=== PATIENT | male | born 1965 | race Caucasian/White ===

== ENCOUNTER 2018-08-29 14:59 | Emergency (ER) | payer OTHER ==
--- OUTSIDE RECORDS SUMMARY | 2018-08-29 15:02 | XMS REPORT | Clinical Summary ---
:1965 Author Organization [facility] Address [address] [place] [address] Care Team Providers Name Role Phone Wilner Chery MD Primary Care Provider Allergies Active Allergy Reactions Severity Noted Date Comments No Known Drug Allergies 01/24/2016 Current Medications Prescription Sig. Disp. Refills Start Date End Date Status pantoprazole Take 1 tablet Active (PROTONIX) 40 MG EC by mouth tablet daily. PARoxetine (PAXIL) 30 Take 30 mg by 2 09/09/2017 Active MG tablet mouth nightly. VIMPAT 150 mg tablet TAKE 1/2 90 tablet 1 04/21/2018 Active TABLET TWICE 8 A DAY APTIOM 600 mg tablet TAKE 2 180 tablet 3 05/10/2018 Active TABLETS (=1,200MG) NIGHTLY simvastatin (ZOCOR) TAKE 1 TABLET 90 tablet 3 05/10/2018 Active 20 MG tablet DAILY aspirin 325 MG tablet Take 325 mg Active by mouth daily. cloBAZam (ONFI) 20 mg Take 2 60 tablet 5 07/19/2018 Active tablet tablets (40 9 mg total) by mouth daily for 180 days. baclofen (LIORESAL) Take 10 mg by 3 08/21/2016 Discontinued 10 MG tablet mouth 8 nightly. eslicarbazepine Take 1,200 mg 180 tablet 3 02/22/2017 Discontinued (APTIOM) 600 mg by mouth 8 tablet nightly. lacosamide (VIMPAT) Take 75 mg by Discontinued 150 mg tablet mouth 2 (two) 7 times a day. PARoxetine (PAXIL) 10 TAKE 1 TABLET 90 tablet 3 04/11/2017 Discontinued MG tablet AT BEDTIME 7 simvastatin (ZOCOR) TAKE 1 TABLET 90 tablet 3 04/11/2017 Discontinued 20 MG tablet DAILY 8 cloBAZam (ONFI) 20 mg Take 1.5 135 tablet 1 06/13/2017 Discontinued tablet tablets (30 7 mg total) by mouth nightly for 180 days. meloxicam (MOBIC) 15 Take 1 tablet 06/22/2017 Discontinued mg tablet by mouth 8 daily. gabapentin Take 1 06/22/2017 Discontinued (NEURONTIN) 300 mg capsule by 8 capsule mouth 3 (three) times a day. cloBAZam (ONFI) 20 mg Take 2 180 tablet 1 09/29/2017 Discontinued tablet tablets (40 7 mg total) by mouth nightly for 180 days. cloBAZam (ONFI) 20 mg Take 2 20 tablet 0 09/30/2017 tablet tablets (40 7 mg total) by mouth nightly for 10 days. lacosamide (VIMPAT) Take 1 tablet 30 tablet 0 10/13/2017 Discontinued 150 mg tablet (150 mg 7 total) by mouth daily for 30 days. 75 mg po bid. lacosamide (VIMPAT) Take 1 tablet 90 tablet 1 10/13/2017 Discontinued 150 mg tablet (150 mg 7 total) by mouth daily for 180 days. 75 mg po bid. lacosamide (VIMPAT) Take 1 tablet 90 tablet 1 10/13/2017 Discontinued 150 mg tablet (150 mg 8 total) by mouth daily for 180 days. 75 mg po bid. gabapentin Take 300 mg 3 09/16/2017 Discontinued (NEURONTIN) 600 mg by mouth 8 tablet daily. aspirin 325 MG tablet Take 325 mg Discontinued by mouth 8 daily. cloBAZam (ONFI) 10 mg Take 40 mg by Discontinued tablet mouth daily. 8 clonIDINE (CATAPRES) Take 0.1 mg Discontinued 0.1 MG tablet by mouth 2 8 (two) times a day. aspirin-caffeine (BC) Take by Discontinued 845-65 mg powder in mouth. 8 packet eslicarbazepine Take 900 mg Discontinued (APTIOM) 600 mg by mouth 8 tablet daily. lacosamide (VIMPAT) Take 1 tablet 180 tablet 1 03/23/2018 Discontinued 150 mg tablet (150 mg 8 total) by mouth 2 (two) times a day for 180 days. 75 mg po bid. lacosamide (VIMPAT) Take 1 tablet 180 tablet 1 03/24/2018 Discontinued 150 mg tablet (150 mg 8 total) by mouth 2 (two) times a day for 180 days. cloBAZam (ONFI) 20 mg Take 1.5 135 tablet 1 03/27/2018 Discontinued tablet tablets (30 8 mg total) by mouth nightly for 180 days. PARoxetine (PAXIL) 10 TAKE 1 TABLET 90 tablet 3 05/10/2018 Discontinued MG tablet AT BEDTIME 8 methocarbamol Take 1 tablet 50 tablet 0 05/12/2018 (ROBAXIN) 500 MG (500 mg 8 tablet total) by mouth every 8 (eight) hours as needed for muscle spasms for up to 15 days. acetaminophen-codeine Take 1-2 50 tablet 0 05/12/2018 Discontinued (TYLENOL WITH CODEINE tablets by 8 #3) 300-30 mg per mouth every 6 tablet (six) hours as needed for moderate pain for up to 30 days. acetaminophen-codeine Take 1-2 50 tablet 0 06/04/2018 Discontinued (TYLENOL WITH CODEINE tablets by 8 #3) 300-30 mg per mouth every 6 tablet (six) hours as needed for moderate pain for up to 30 days. acetaminophen-codeine Take 1 tablet 60 tablet 0 06/04/2018 (TYLENOL WITH CODEINE by mouth 8 #3) 300-30 mg per every 4 tablet (four) hours as needed for moderate pain for up to 30 days. 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) Epilepsy (HCC) 01/24/2016 Headache 01/24/2016 HLD (hyperlipidemia) 01/24/2016 Obsessive-compulsive disorder 01/24/2016 Shoulder pain 01/24/2016 Skin lesion 01/24/2016 Encounters Date Type Specialty Care Team Description 08/14/2018 Telephone Gastroenterology Carson Freeman MD 08/11/2018 Office Visit Neurosurgery Morro Shin, Epidural lipomatosis ( Primary Dx); MD Mary/Zhao lumbar laminectomy 08/11/2018 Hospital Encounter Radiology Morro Shin, S/P lumbar laminectomy 08/04/2018 Telephone Gastroenterology Carson Freeman MD 07/19/2018 Office Visit Neurology Vikash Cross MD Partial symptomatic epilepsy with complex partial seizures, intractable, with status epilepticus (Primary Dx) 07/19/2018 Office Visit Internal Medicine Wilner Chery Encounter for general adult medical examination with abnormal findings (Primary Dx); MD Madeline S/P lumbar laminectomy; Hyperlipidemia, unspecified hyperlipidemia type; Screening for malignant neoplasm of prostate; Need for vaccination 06/09/2018 Office Visit [facility]ro [place], Epidural lipomatosis ( Primary Dx); S/Zhao lumbar laminectomy 06/09/2018 Procedure Pass Radiology 06/04/2018 Orders Only Neurosurgery Morro Shin, S/P lumbar laminectomy (Primary Dx) 05/11/2018 - Hospital Encounter Neurosurgery Morro Shin, S/P lumbar laminectomy; 05/12/2018 Degenerative lumbar spinal stenosis 05/11/2018 Anesthesia Event General Surgery Parish Monte MD 05/11/2018 Ancillary Orders Radiology Morro Shin S/P lumbar laminectomy 05/11/2018 Procedure Pass General Surgery 05/11/2018 Surgery General Surgery Morro Shin, PARTIAL LUMBAR MD LAMINECTOMY L2-L5 05/10/2018 Refill Internal Medicine Wilner Chery MD 05/10/2018 Refill Neurology Vikash Cross MD 05/05/2018 Telephone Neurology Maria Eugenia Gutierrez RN 05/02/2018 Telephone Neurology Maria Eugenia Gutierrez RN 04/28/2018 Office Visit Internal Medicine Wilner Chery Pre-op evaluation ( Primary Dx); MD Madeline Partial symptomatic epilepsy with complex partial seizures, intractable, with status epilepticus; Blood pressure elevated without history of HTN 03/27/2018 Refill Neurology Vikash Cross MD 03/24/2018 Refill Neurology Beth Alexis RN 03/23/2018 Office Visit Neurology Vikash Cross MD 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 (Primary Dx) 02/17/2018 Telephone Neurology Beth Alexis RN 12/13/2017 Office Visit Neurosurgery Morro Shin, Epidural lipomatosis ( Primary Dx); Intractable seizures; Lumbar stenosis with neurogenic claudication; S/P ventricular shunt placement 10/18/2017 Telephone Neurology Nicole Oro RN 10/14/2017 Telephone Internal Medicine Patricia Mckeon MA 10/13/2017 Refill Neurology Nicole Oro RN 10/08/2017 Hospital Encounter Radiology Wilner Chery MD radiculopathy 09/30/2017 Refill Neurology Nicole Oro RN 09/29/2017 Office Visit Internal Medicine Wilner Chery MD radiculopathy (Primary Dx) 09/29/2017 Office Visit Neurology Vikash Cross MD 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 (Primary Dx) 09/29/2017 Procedure Pass Radiology after 08/28/2017 Immunizations Name Dates Previously Given Next Due FLUBLOK QUAD PF 07/19/2018 FLUCELVAX QUAD PF (0.5mL syringe) 09/24/2017 Influenza (IM) Preservative Free 07/24/2015 Family History Medical History Relation Name Comments Other Father spinal injury Seizures Maternal Grandfather Heart disease Mother No sure what type Relation Name Status Comments Father Maternal Grandfather Mother Social History Tobacco Use Types Packs/Day Years Used Date Never Smoker Smokeless Tobacco: Never Used Tobacco Cessation: Counseling Given: Yes Alcohol Use Drinks/Week oz/Week Comments Yes moderate Sex Assigned at Date Recorded Not on file Last Filed Vital Signs Vital Sign Reading Time Taken Blood Pressure 146/79 07/19/2018 9:54 AM CDT Pulse 87 07/19/2018 9:54 AM CDT Temperature 36.2 C (97.2 F) 05/12/2018 7:29 AM CDT Respiratory Rate 18 05/12/2018 7:29 AM CDT Oxygen Saturation 93% 05/12/2018 7:29 AM CDT Inhaled Oxygen Concentration - - Weight 80.9 kg (178 lb 6.4 oz) 07/19/2018 9:54 AM CDT Height 160 cm (5' 3") 07/19/2018 9:54 AM CDT Body Mass Index 31.6 07/19/2018 9:54 AM CDT Plan of Treatment Date Type Specialty Care Team Description 11/30/2018 Office Visit Neurology Vikash Cross MD [id number] [place] [address] Health Maintenance Due Date Last Done Comments SHINGRIX VACCINE (#1) 09/22/2018 Postponed from 2016 (Insurance / Financial) COLON CANCER SCREENING 10/24/2018 Postponed from 2016 (Not Indicated) INFLUENZA VACCINE Completed 07/19/2018, 07/19/2018, 09/24/2017 Procedures Procedure Name Priority Date/Time Associated Diagnosis Comments MRI LUMBAR SPINE WO Routine 08/11/2018 10:02 S/P lumbar laminectomy Results for this CONTRAST AM CDT procedure are in the results section. PROSTATE SPECIFIC Routine 07/19/2018 8:55 Screening for Results for this ANTIGEN AM CDT malignant neoplasm of procedure are in prostate the results section. LIPID PANEL Routine 07/19/2018 8:55 Hyperlipidemia, Results for this AM CDT unspecified procedure are in hyperlipidemia type the results section. COMPREHENSIVE Routine 07/19/2018 8:55 Hyperlipidemia, Results for this METABOLIC PANEL AM CDT unspecified procedure are in hyperlipidemia type the results section. CBC WITH PLATELET AND Routine 07/19/2018 8:55 Hyperlipidemia, Results for this DIFFERENTIAL AM CDT unspecified procedure are in hyperlipidemia type the results section. SURGICAL PATHOLOGY Routine 05/11/2018 3:36 Results for this REQUEST PM CDT procedure are in the results section. XR LUMBAR SPINE 1 VW Routine 05/11/2018 12:30 S/P lumbar laminectomy Results for this PM CDT procedure are in the results section. XR LUMBAR SPINE 1 VW Routine 05/11/2018 11:58 S/P lumbar laminectomy Results for this AM CDT procedure are in the results section. MN AN ELECTIVE Routine 05/11/2018 11:23 ENDOTRACHEAL AIRWAY AM CDT Procedure Note - Jana Chau CRNA - 05/11/2018 11:23 AM CDT Airway Date/Time: 05/11/2018 10:51 AM Performed by: JANA CHAU Authorized by: PARISH MONTE Location: OR Urgency: Elective Difficult Airway: No Anesthesiologist: PARISH MONTE Preoxygenated with 100% O2: Yes C-spine Precautions Maintained Throughout: Yes Mask Ventilation: Easy mask Final Airway Type: Endotracheal airway Final Endotracheal Airway: ETT Cuffed: Yes Technique Used: Video laryngoscopy Blade Type: Steve Laryngoscope Blade/Videolaryngoscope Blade Size: 4 ETT Size (mm): 8.0 Cuff at minimum occlusion pressure: Yes Measured from: Gums ETT to Gums (cm): 22 Placement Verified by: CO2 detection, direct visualization and equal breath sounds Laryngoscopic view: Grade IIa - partial view of glottis Rapid Sequence Induction (RSI): No Modified RSI: Yes Number of Attempts at Approach: 2 XR LUMBAR SPINE Routine 05/11/2018 11:15 AM S/P lumbar laminectomy Results for this 1 VW CDT procedure are in the results section. LAMINECTOMY, 05/11/2018 10:45 AM Degenerative lumbar LUMBAR CDT spinal stenosis Case Notes PRONE POSITION, POSSIBLE EXTENDED STAY Special Needs PRONE POSITION, POSSIBLE EXTENDED STAY URINALYSIS, AUTOMATED Routine 04/28/2018 12:20 Pre-op evaluation Results for this WITH MICROSCOPY PM CDT procedure are in the results section. COMPREHENSIVE Routine 04/28/2018 12:20 Pre-op evaluation Results for this METABOLIC PANEL PM CDT procedure are in the results section. PARTIAL THROMBOPLASTIN Routine 04/28/2018 12:20 Pre-op evaluation Results for this TIME (PTT) PM CDT procedure are in the results section. PROTHROMBIN TIME WITH Routine 04/28/2018 12:20 Pre-op evaluation Results for this INR PM CDT procedure are in the results section. CBC WITH PLATELET AND Routine 04/28/2018 12:20 Pre-op evaluation Results for this DIFFERENTIAL PM CDT procedure are in the results section. ECG 12-LEAD Routine 04/28/2018 11:54 Pre-op evaluation Results for this AM CDT procedure are in the results section. MRI LUMBAR SPINE WO Routine 10/08/2017 8:53 Lumbosacral Results for this CONTRAST AM [employer] radiculopathy procedure are in the results section. after 08/28/2017 Results MRI Lumbar Spine Wo Contrast (08/11/2018 10:02 AM)Only the most recent of2 resultswithin the time period is included. Narrative Performed At EXAMINATION:MRI LUMBAR SPINE WO CONTRAST [facility] COMPARISON:October 08, 2017. CLINICAL HISTORY:Z98.890 Other specified postprocedural states, Back pain prior surgerynew or progressive sx COMMENTS:Sagittal and axial MR images of the lumbar spine were obtained. FINDINGS:The lowest functional disc level is assumed to be L5-S1. L5-S1 shows left-sided laminectomy change. The thecal sac and nerve roots appear to be retracted towards the left side posteriorly towards the laminectomy site. There is mild facet disease. L4-5 shows left-sided laminectomy change. There is mild facet disease. Again the thecal sac is deviated towards the left side compared to the preoperative appearance. L3-4 shows left-sided laminectomy change and mild facet disease. The thecal sac again shows deviation towards left side. L2-3 shows left-sided laminectomy change at there is minimal facet disease. The thecal sac again extends towards left side posteriorly. The overall appearance of prominence of the epidural fat is again identified. There appears to be slight increase in prominence of the epidural vessels particularly ventrally. Overall the CSF within the thecal sac is not as well seen as on the previous study. IMPRESSION:Postoperative changes as described above. [id number] Procedure Note Hm Interface, Radiology Results Incoming - 08/11/2018 10:51 AM CDT EXAMINATION: MRI LUMBAR SPINE WO CONTRAST COMPARISON: October 08, 2017. CLINICAL HISTORY: Z98.890 Other specified postprocedural states, Back pain prior surgery new or progressive sx COMMENTS: Sagittal and axial MR images of the lumbar spine were obtained. FINDINGS: The lowest functional disc level is assumed to be L5-S1. L5-S1 shows left-sided laminectomy change. The thecal sac and nerve roots appear to be retracted towards the left side posteriorly towards the laminectomy site. There is mild facet disease. L4-5 shows left-sided laminectomy change. There is mild facet disease. Again the thecal sac is deviated towards the left side compared to the preoperative appearance. L3-4 shows left-sided laminectomy change and mild facet disease. The thecal sac again shows deviation towards left side. L2-3 shows left-sided laminectomy change at there is minimal facet disease. The thecal sac again extends towards left side posteriorly. The overall appearance of prominence of the epidural fat is again identified. There appears to be slight increase in prominence of the epidural vessels particularly ventrally. Overall the CSF within the thecal sac is not as well seen as on the previous study. IMPRESSION: Postoperative changes as described above. [id number] Performing Organization Address City/State/Zipcode Phone Number JOVANNY REYES [address] [place] [address] CBC with platelet and differential (07/19/2018 8:55 AM)Only the most recent of2 resultswithin the time period is included. WBC 7.2 3.8 - 10.8 Thousand/uL [facility] [place] RBC 4.92 4.20 - 5.80 Million/uL [facility] [place] HGB 15.1 13.2 - 17.1 g/dL [facility] [place] HCT 44.6 38.5 - 50.0 % [facility] [place] MCV 90.7 80.0 - 100.0 fL [facility] [place] MCH 30.7 27.0 - 33.0 pg [facility] [place] MCHC 33.9 32.0 - 36.0 g/dL [facility] [place] RDW 12.0 11.0 - 15.0 % [facility] [place] Platelet count 202 140 - 400 Thousand/uL [facility] [place] MPV 10.2 7.5 - 12.5 fL [facility] [place] Neutrophils, absolute 4,320 1,500 - 7,800 cells/uL [facility] [place] Lymphocytes, absolute 2,016 850 - 3,900 cells/uL [facility] [place] Monocytes, absolute 562 200 - 950 cells/uL [facility] [place] Eosinophils, absolute 252 15 - 500 cells/uL [facility] [place] Basophils, absolute 50 0 - 200 cells/uL [facility] [place] Neutrophils 60 % [facility] [place] Lymphocytes 28.0 % [facility] [place] Monocytes 7.8 % [facility] [place] Eosinophils 3.5 % [facility] [place] Basophils + RC 0.7 % [facility] [place] Specimen Blood Narrative Performed At FASTING:YES [facility] FASTING: YES Other Results Text Performing Organization Information: Site ID: [id number] Name: [facility] Address: [address] [place] [id number] Director: Viviana Clark Performing Organization Address [facility]/Zipcode Phone Number [facility] [place] [address] [place] [phone] Prostate specific antigen (07/19/2018 8:55 AM) PSA 0.6 < OR=4.0 ng/mL [facility] [place] Comment: The total PSA value from this assay system is standardized against the WHO standard. The test result will be approximately 20% lower when compared to the equimolar-standardized total PSA ([place] [place]). Comparison of serial PSA results should be interpreted with this fact in mind. This test was performed using the Siemens chemiluminescent method. Values obtained from different assay methods cannot be used interchangeably. PSA levels, regardless of value, should not be interpreted as absolute evidence of the presence or absence of disease. Specimen Blood Narrative Performed At FASTING:YES [facility] FASTING: YES Other Results Text Performing Organization Information: Site ID: [id number] Name: [facility] Address: [address] [place] [id number] Director: Viviana Clark Performing Organization Address City/State/Zipcode Phone Number [place] [phone] Lipid panel (07/19/2018 8:55 AM) Cholesterol, total 182 <200 mg/dL [facility] HDL cholesterol 48 >40 mg/dL [facility] Triglycerides 115 <150 mg/dL [facility] LDL cholesterol 111 (H) mg/dL (calc) [facility] calculated Comment: [place] Reference range: <100 Desirable range <100 mg/dL for primary prevention; <70 mg/dL for patients with CHD or diabetic patients with > or=2 CHD risk factors. LDL-C is now calculated using the Kelvin-Sofia calculation, which is a validated novel method providing better accuracy than the Friedewald equation in the estimation of LDL-C. Kelvin FERREIRA et al. ERMIAS. 2013;310(19): 7242-0169 (http://education.[employer].Physician Referral Network (PRN)/faq/VQK272) Cholesterol/HDL ratio 3.8 <5.0 (calc) [facility] Non-HDL cholesterol 134 (H) <130 mg/dL [facility] Comment: (calc) [place] For patients with diabetes plus 1 major ASCVD risk factor, treating to a non-HDL-C goal of <100 mg/dL (LDL-C of <70 mg/dL) is considered a therapeutic option. Specimen Blood Narrative Performed At FASTING:YES [facility] FASTING: YES Other Results Text Performing Organization Information: Site ID: [id number] Name: [facility] Address: [address] [place] [address] Director: Viviana Clark Performing Organization Address City/State/Zipcode Phone Number MAGGIE [facility] [place] [address] [place] [address] Comprehensive metabolic panel (07/19/2018 8:55 AM)Only the most recent of2 resultswithin the time period is included. Glucose 148 (H) 65 - 99 mg/dL [facility] Comment: [place] Fasting reference interval For someone without known diabetes, a glucose value >125 mg/dL indicates that they may have diabetes and this should be confirmed with a follow-up test. BUN, whole blood 14 7 - 25 mg/dL [facility] [place] Creatinine 1.00 0.70 - 1.33 [facility] Comment: mg/dL [place] For patients >49 years of age, the reference limit for Creatinine is approximately 13% higher for people identified as -German. EGFR Non-Afr. German 86 > OR=60 [facility] mL/min/1.73m2 [place] EGFR 100 > OR=60 [employer] [employer] [facility]NOST[facility] mL/min/1.73m2 [place] BUN/creatinine ratio NOT APPLICABLE 6 - 22 (calc) [facility] [place] Sodium 140 135 - 146 mmol/L [facility] [place] Potassium 4.5 3.5 - 5.3 mmol/L [facility] [place] Chloride 103 98 - 110 mmol/L [facility] [place] CO2 31 20 - 32 mmol/L [facility] [place] Calcium 9.5 8.6 - 10.3 mg/dL [facility] [place] Protein 7.4 6.1 - 8.1 g/dL [facility] [place] Albumin, S 4.3 3.6 - 5.1 g/dL [facility] [place] Globulin, total 3.1 1.9 - 3.7 g/dL [facility] (calc) [place] Albumin/globulin ratio 1.4 1.0 - 2.5 (calc) [facility] [place] Total bilirubin 0.4 0.2 - 1.2 mg/dL [facility] [place] Alkaline phosphatase 121 (H) 40 - 115 U/L [facility] [place] AST 21 10 - 35 U/L [facility] [place] ALT 46 9 - 46 U/L [facility] [place] Specimen Blood Narrative Performed At FASTING:YES [facility] FASTING: YES Other Results Text Performing Organization Information: Site ID: [id number] Name: [facility] Address: [address] [place] [address] Director: Viviana Clark Performing Organization Address [facility] Phone Number MAGGIE [facility] [place] [address] [place], [place] [phone] Surgical pathology request (05/11/2018 3:36 PM) [facility] DEPARTMENT OF PATHOLOGY AND GENOMIC MEDICINE Surgical pathology report See link below for PDF [facility] DEPARTMENT OF Lab Report PATHOLOGY AND GENOMIC MEDICINE Result status This is Final Report to [facility] DEPARTMENT OF [id number] PATHOLOGY AND GENOMIC MEDICINE Performing Organization Address [facility] Hospital[facility] Phone Number [facility] DEPARTMENT OF PATHOLOGY AND [address] [phone] GENOMIC MEDICINE XR Lumbar Spine 1 Vw (05/11/2018 12:30 PM)Only the most recent of3 resultswithin the time period is included. Narrative Performed At EXAMINATION:XR LUMBAR SPINE 1 VW [facility] COMPARISON:11:53 AM. CLINICAL HISTORY:Z98.890 Other specified postprocedural states COMMENTS:Lateral views of the lumbar spine are provided. FINDINGS:The lowest functional disc level is assumed to be L5-S1. IMPRESSION:The large metallic retractor is at the L4-5 level. The deepest metallic pointer with a curved ball tip is at the S1 level. [facility]-[id number] Procedure Note Interface, Radiology Results Incoming - 05/11/2018 12:59 PM CDT EXAMINATION: XR LUMBAR SPINE 1 VW COMPARISON: 11:53 AM. CLINICAL HISTORY: Z98.890 Other specified postprocedural states COMMENTS: Lateral views of the lumbar spine are provided. FINDINGS: The lowest functional disc level is assumed to be L5-S1. IMPRESSION: The large metallic retractor is at the L4-5 level. The deepest metallic pointer with a curved ball tip is at the S1 level. [facility]-[id number] Performing Organization Address [facility]/Zipcode Phone Number [facility] [address] [place] [address] Urinalysis, automated with microscopy (04/28/2018 12:20 PM) Color, UA YELLOW YELLOW [facility] [place] Appearance CLEAR CLEAR [facility] [place] Specific gravity, urine 1.025 1.001 - 1.035 [facility] [place] pH, urine 7.0 5.0 - 8.0 [employer] [facility] [place] Glucose, urine NEGATIVE NEGATIVE [facility] [place] Bilirubin, UA NEGATIVE NEGATIVE [facility] [place] Ketones, UA NEGATIVE NEGATIVE [facility] [place] Occult blood, urine NEGATIVE NEGATIVE [facility] [place] Protein, UA NEGATIVE NEGATIVE [facility] Nitrite, UA NEGATIVE NEGATIVE [facility] Leukocyte esterase, UA NEGATIVE NEGATIVE [facility] WBC, UA NONE SEEN < OR=5 /HPF [facility] RBC, UA NONE SEEN < OR=2 /HPF [facility] Squamous epithelial cells, UA NONE SEEN < OR=5 /HPF [facility] Bacteria, UA NONE SEEN NONE SEEN /HPF [facility] Hyaline casts, UA NONE SEEN NONE SEEN /LPF [facility] Specimen Urine Narrative Performed At FASTING:YES [facility] FASTING: YES Other Results Text Performing Organization Information: Site ID: [id number] Name: [facility] Address: [address] [place] [id number] Director: Viviana Clark Performing Organization Address [facility] Phone Number [facility] [address] [address] Partial thromboplastin time, activated (04/28/2018 12:20 PM) PTT 27 22 - 34 sec [facility] Comment: This test has not been validated for monitoring unfractionated heparin therapy. For testing that is validated for this type of therapy, please refer to the Heparin Anti-Xa assay (test code 23057). For additional information, please refer to http://education.[employer]/faq/MAV067 (This link is being provided for informational/educational purposes only.) Specimen Blood Narrative Performed At FASTING:YES [facility] FASTING: YES Other Results Text Performing Organization Information: Site ID: [id number] Name: [facility] Address: [address] [place] [phone] Director: Viviana Clark Performing Organization Address [facility] Phone Number [facility] [address] [address] Prothrombin time with INR (04/28/2018 12:20 PM) INR 1.0 [facility] Comment: Reference Range 0.9-1.1 Moderate-intensity Warfarin Therapy 2.0-3.0 Higher-intensity Warfarin Therapy 3.0-4.0 Prothrombin time 10.8 9.0 - 11.5 sec [facility] Comment: For more information on this test, go to: http://education.[employer]/faq/WAQ007 Specimen Blood Narrative Performed At FASTING:YES [facility] FASTING: YES Other Results Text Performing Organization Information: Site ID: [id number] Name: [facility] Address: [address] [place] [address] Director: Viviana Clark Performing Organization Address [facility] Phone Number [facility] [address] [place], [place] [id number] ECG 12 lead (04/28/2018 11:54 AM) Ventricular rate 68 [facility] Atrial rate 68 [facility] MN interval 138 [facility] QRSD interval 84 [facility] QT interval 362 [facility] QTC interval 384 [facility] P axis 1 60 [facility] QRS axis 1 52 [facility] T wave axis 22 [facility] EKG impression Normal sinus rhythm-Nonspecific T wave [facility] abnormality-Abnormal ECG-In automated comparison with ECG of 10-MAR-2017 13:20,-No significant change was found- Performing Organization Address [facility] Phone Number [facility] [address] [place] [address] after 08/28/2017 Insurance Payer Benefit Plan / Group Subscriber ID Type Phone Address MEDICARE MEDICARE PART A AND B xxxxxxxxxx Medicare [place], [place] AETNA A[employer] INDEMNITY xxxxxxxxx Indemnity
[2018-08-29 15:46] LABS: ALT/SGPT 53 U/L (12-78); AST/SGOT 24 U/L (15-37); Albumin 4.1 g/dL (3.4-5.0); Alkaline Phosphatase 132 U/L (45-117); BUN Blood Urea Nitrogen 15 mg/dL (7-18); Bicarbonate 29 mmol/L (21-32); Bilirubin Direct < 0.1 mg/dL (0-0.2); Bilirubin Total 0.2 mg/dL (0.2-1.0); Glucose Level 121 mg/dL (74-106); Potassium 4.3 mmol/L (3.5-5.1); Sodium Level 140 mmol/L (136-145)
[2018-08-29 15:53] LABS: Absolute Monocytes 0.8 K/uL (0.1-1.3); Basophils % 0.6 % (0-1.3); Eosinophils % 2.4 % (0-4.4); Hematocrit 44.8 % (39.6-49.0); Lymphocytes % 24.4 % (15.3-44.8); MCH 31.2 pg (27.0-35.0); MPV 8.7 fL (7.6-11.3); RBC Red Blood Cell Count 4.92 M/uL (4.33-5.43)
--- NOTE | 2018-08-29 16:19 | RAD REPORT ---
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 FINDINGS: Right-sided shunt tubing is in place showing no bend, kink or disruption. Older remnant se gments of shunt tube are seen over the neck, chest and abdomen. No acute findings of the chest, abdom en or pelvis. No header neck suspicious finding. IMPRESSION: Negative shunt series.
--- NOTE | 2018-08-29 16:22 | RAD REPORT ---
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 All CT scans are performed using dose optimization technique as appropriate and may include automated exposure control or mA/KV adjustment according to patient size. FINDINGS: No intracranial hemorrhage, mass, edema or shift of mid-line structures. No acute infarcti on changes seen. No abnormal extra-axial fluid collections. Ventricles are not dilated. Ventricle siz e is slightly increased from 2016. It is unknown if the patient has had a revision during the interva l. Patient also has apparent increase in volume loss. This could account for the slight increase in v entricular size. Shunt tube is in place entering from a right parietal access site. Tip is in the lef t frontal lobe white matter. Mastoid air cells and visualized portions of the paranasal sinuses are clear. No acute bony findings. IMPRESSION: No hemorrhage, mass, edema or other acute intracranial finding. Ventricles are well within normal limits in size but are slightly increased over 2016. Patient also h as a slight progression of volume loss of the brain parenchyma which could easily account for the kika nge in ventricular size.
--- NOTE | 2018-08-29 16:33 | EDPHYS ---
Physician Documentation [facility] Name: Jay Guzman Jr Age: 53 yrs Sex: Male : 1965 Arrival Date: 08/29/2018 Time: 15:01 Bed 7 Private MD: ED Physician Lucio Cowart HPI: 08/29 15:03 This 53 yrs old Male presents to ER via Unassigned with complaints of Seizure.snw 15:03 The patient presents after having a single isolated seizure. Character of seizure(s): snw Loss of consciousness: the patient did not lose consciousness, Motor activity: generalized, shaking all over, Incontinence: none. Seizure onset: today. Seizure Hx: Last seizure: The patient's last seizure was approximately 3 month(s) ago, hx of hydrocephalus with SYSTEM CONSULTANT shunt. Associated injury: The patient did not suffer any apparent associated injury. EMS care: IV fluids, supplemental oxygen. Current symptoms: Currently, the patient is not experiencing any symptoms. The patient has experienced similar episodes in the past, chronically. sees 3 Neurologists in [place]. Historical: - Allergies: 15:06 No Known Allergies; bp - Home Meds: 15:06 Aptiom oral oral [Active]; Vimpat oral oral [Active]; Onfi oral oral [Active]; bp paroxetine oral oral [Active]; Simvastatin Oral [Active]; Baclofen Oral [Active]; pantoprazole oral oral [Active]; - PMHx: 15:06 Seizures; HYDROCEPHALUS; SYSTEM CONSULTANT SHUNT; bp - Immunization history:: Adult Immunizations unknown. - Social history:: Smoking status: Patient/guardian denies using tobacco. - Ebola Screening: : Patient negative for fever greater than or equal to 101.5 degrees Fahrenheit, and additional compatible Ebola Virus Disease symptoms Patient denies exposure to infectious person Patient denies travel to an Ebola-affected area in the 21 days before illness onset No symptoms or risks identified at this time. ROS: 15:14 Constitutional: Negative for fever, chills, and weight loss, Eyes: Negative for injury, snw pain, redness, and discharge, ENT: Negative for injury, pain, and discharge, Neck: Negative for injury, pain, and swelling, Cardiovascular: Negative for chest pain, palpitations, and edema, Respiratory: Negative for shortness of breath, cough, wheezing, and pleuritic chest pain, Abdomen/GI: Negative for abdominal pain, nausea, vomiting, diarrhea, and constipation, Back: Negative for injury and pain, : Negative for injury, bleeding, discharge, and swelling, MS/Extremity: Negative for injury and deformity, Skin: Negative for injury, rash, and discoloration. 15:14 Neuro: Positive for chronic headache, frequent seizures. 15:14 Psych: Exam: 15:14 Constitutional: This is a well developed, well nourished patient who is awake, alert, snw and in no acute distress. Head/Face: Normocephalic, atraumatic. Eyes: Pupils equal round and reactive to light, extra-ocular motions intact. Lids and lashes normal. Conjunctiva and sclera are non-icteric and not injected. Cornea within normal limits. Periorbital areas with no swelling, redness, or edema. ENT: Nares patent. No nasal discharge, no septal abnormalities noted. Tympanic membranes are normal and external auditory canals are clear. Oropharynx with no redness, swelling, or masses, exudates, or evidence of obstruction, uvula midline. Mucous membranes moist. Neck: Trachea midline, no thyromegaly or masses palpated, and no cervical lymphadenopathy. Supple, full range of motion without nuchal rigidity, or vertebral point tenderness. No Meningismus. Chest/axilla: Normal chest wall appearance and motion. Nontender with no deformity. No lesions are appreciated. Cardiovascular: Regular rate and rhythm with a normal S1 and S2. No gallops, murmurs, or rubs. Normal PMI, no JVD. No pulse deficits. Respiratory: Lungs have equal breath sounds bilaterally, clear to auscultation and percussion. No rales, rhonchi or wheezes noted. No increased work of breathing, no retractions or nasal flaring. Abdomen/GI: Soft, non-tender, with normal bowel sounds. No distension or tympany. No guarding or rebound. No evidence of tenderness throughout. Back: No spinal tenderness. No costovertebral tenderness. Full range of motion. Skin: Warm, dry with normal turgor. Normal color with no rashes, no lesions, and no evidence of cellulitis. MS/ Extremity: Pulses equal, no cyanosis. Neurovascular intact. Full, normal range of motion. Psych: Awake, alert, with orientation to person, place and time. Behavior, mood, and affect are within normal limits. 15:14 Neuro: Orientation: is normal, Mentation: is normal, Memory: is normal, Cranial nerves: grossly normal, seizure activity, is not displayed by the patient. Vital Signs: 15:06 BP 150 / 103; Pulse 104; Resp 20; Temp 98.7; Pulse Ox 9% ; Weight 82.55 kg; Height 5 bp ft. 5 in. (165.10 cm); 16:07 BP 140 / 102; Pulse 89; Resp 16 S; Pulse Ox 98% on R/A; rv 16:43 BP 138 / 100; Pulse 98; Resp 16 S; Pulse Ox 97% on R/A; Pain 0/10; rv 15:06 Body Mass Index 30.29 (82.55 kg, 165.10 cm) bp [place] Coma Score: 15:06 Eye Response: spontaneous(4). Verbal Response: oriented(5). Motor Response: obeys bp commands(6). Total: 15. MDM: 15:03 Patient medically screened. snw 16:33 Data reviewed: vital signs, nurses notes. Data interpreted: Pulse oximetry: on room air snw is 98 %. Interpretation: normal. Counseling: I had a detailed discussion with the patient and/or guardian regarding: the historical points, exam findings, and any diagnostic results supporting the discharge/admit diagnosis, the presence of at least one elevated blood pressure reading (>120/80) during this emergency department visit, lab results, radiology results, the need for outpatient follow up, to return to the emergency department if symptoms worsen or persist or if there are any questions or concerns that arise at home. Special discussion: Based on the patient's history, exam and DX evaluation, there is no indication for emergent intervention or inpatient [place]. It is understood by the patient/guardian that if the SXs persist or worsen they need to return immediately for re-evaluation. Based on the history and exam findings, there is no indication for further emergent testing or inpatient evaluation. I discussed with the patient/guardian the need to see the neurologist for further evaluation of the symptoms. I discussed with the patient/guardian the need to see the primary care provider for further evaluation of the symptoms. 08/29 15:13 Order name: Basic Metabolic Panel; Complete Time: 15:47 snw 11/06 15:13 Order name: CBC with Diff; Complete Time: 15:56 snw 08/29 15:13 Order name: Shuntogram XRAY; Complete Time: 16:21 snw 08/29 15:13 Order name: Hepatic Function; Complete Time: 15:47 snw 08/29 15:13 Order name: IV Saline Lock; Complete Time: 15:24 snw 08/29 15:56 Order name: CT Head Brain wo Cont; Complete Time: 16:28 snw 08/29 15:13 Order name: Labs collected and sent; Complete Time: 15:24 snw Administered Medications: No medications were administered Point of Care Testing: Blood Glucose: 15:07 Blood Glucose: 109 mg/dL; rv Ranges: Critical Glucose Levels:Adult <50 mg/dl or >400 mg/dl <40 mg/dl or >180 mg/dl Disposition: 17:44 Co-signature as Attending Physician, Lucio Cowart MD. rn Disposition: 08/29/18 16:32 Discharged to Home. Impression: Epilepsy and recurrent seizures. - Condition is Stable. - Discharge Instructions: Seizure, Adult. - Medication Reconciliation Form, Thank You Letter, Antibiotic Education, Prescription Opioid Use form. - Follow up: Private Physician; When: 2 - 3 days; Reason: Recheck today's complaints, Continuance of care, Re-evaluation by your physician. Follow up: Emergency Department; When: As needed; Reason: Worsening of condition. Signatures: Dispatcher [employer] EDMS Nisha Perez, NIB ASSEMBLER-C NIB ASSEMBLER-Csnw Lucio Cowart MD MD rn Peltier, Brian, RN Geronimo Montiel RN RN rv Corrections: (The following items were deleted from the chart) 16:45 16:32 08/29/2018 16:32 Discharged to Home. Impression: Epilepsy and recurrent seizures. rv Condition is Stable. Forms are Medication Reconciliation Form, Thank You Letter, Antibiotic Education, Prescription Opioid Use. Follow up: Private Physician; When: 2 - 3 days; Reason: Recheck today's complaints, Continuance of care, Re-evaluation by your physician. Follow up: Emergency Department; When: As needed; Reason: Worsening of condition. snw
--- NOTE | 2018-08-29 16:33 | ER ---
Nurse's Notes [facility] Name: Jay Guzman Jr Age: 53 yrs Sex: Male : 1965 Arrival Date: 08/29/2018 Time: 15:01 Bed 7 Private MD: Diagnosis: Epilepsy and recurrent seizures Presentation: 08/29 15:02 Presenting complaint: EMS states: SEIZURE WHILE AT PHYSICAL THERAPY. Transition of bp care: patient was not received from another setting of care. Onset of symptoms was August 29, 2018 at 14:30. Risk Assessment: Do you want to hurt yourself or someone else? Patient reports no desire to harm self or others. Initial Sepsis Screen: Does the patient meet any 2 criteria? HR > 90 bpm. No. Patient's initial sepsis screen is negative. Does the patient have a suspected source of infection? No. Patient's initial sepsis screen is negative. Care prior to arrival: IV initiated. 20 GA, in the left forearm, Glucose check: 140. 15:02 Method Of Arrival: EMS: [facility] bp 15:02 Acuity: JOMAR 3 bp Triage Assessment: 15:06 General: Appears in no apparent distress. comfortable, Behavior is calm, cooperative, bp appropriate for age. Pain: Denies pain. EENT: No deficits noted. Neuro: Level of Consciousness is awake, alert, obeys commands, Oriented to. Cardiovascular: No deficits noted. Respiratory: Airway is patent Respiratory effort is even, unlabored, Respiratory pattern is regular, symmetrical. GI: No signs and/or symptoms were reported involving the gastrointestinal system. : No signs and/or symptoms were reported regarding the genitourinary system. Derm: No deficits noted. Musculoskeletal: Circulation, motion, and sensation intact. Range of motion: intact in all extremities. 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 - Social history:: Smoking status: Patient/guardian denies using tobacco. - Ebola Screening: : Patient negative for fever greater than or equal to 101.5 degrees Fahrenheit, and additional compatible Ebola Virus Disease symptoms Patient denies exposure to infectious person Patient denies travel to an Ebola-affected area in the 21 days before illness onset No symptoms or risks identified at this time. Screenin:26 Abuse screen: Denies threats or abuse. Denies injuries from another. Nutritional rv screening: No deficits noted. Tuberculosis screening: No symptoms or risk factors identified. Fall Risk None identified. Assessment: 15:30 General: Appears in no apparent distress. comfortable, Behavior is calm, cooperative. rv 15:30 Pain: Denies pain. Neuro: Level of Consciousness is awake, alert, obeys commands, rv Oriented to person, place, time, situation. Cardiovascular: Capillary refill < 3 seconds. Respiratory: Airway is patent. GI: No signs and/or symptoms were reported involving the gastrointestinal system. : No signs and/or symptoms were reported regarding the genitourinary system. EENT: No signs and/or symptoms were reported regarding the EENT system. Derm: Skin is intact. Musculoskeletal: No signs and/or symptoms reported regarding the musculoskeletal system. 16:07 Reassessment: Patient appears in no apparent distress at this time. Patient and/or rv family updated on plan of care and expected duration. Pain level reassessed. Patient is alert, oriented x 3, equal unlabored respirations, skin warm/dry/pink. AWAITING CT SCAN RESULT. Vital Signs: 15:06 BP 150 / 103; Pulse 104; Resp 20; Temp 98.7; Pulse Ox 9% ; Weight 82.55 kg; Height 5 bp ft. 5 in. (165.10 cm); 16:07 BP 140 / 102; Pulse 89; Resp 16 S; Pulse Ox 98% on R/A; rv 16:43 BP 138 / 100; Pulse 98; Resp 16 S; Pulse Ox 97% on R/A; Pain 0/10; rv 15:06 Body Mass Index 30.29 (82.55 kg, 165.10 cm) bp [place] Coma Score: 15:06 Eye Response: spontaneous(4). Verbal Response: oriented(5). Motor Response: obeys bp commands(6). Total: 15. ED Course: 15:01 Patient arrived in ED. bp 15:02 Nisha Perez FNP-C is PHCP. snw 15:03 Lucio Cowart MD is Attending Physician. snw 15:03 Triage completed. bp 15:05 EKG done, by residential appliance repair technician. jb1 15:05 Maintain EMS IV. Dressing intact. Good blood return noted. Site clean \T\ dry. Gauge \T\ bp site: 20 GAUGE LEFT AC. 15:06 Arm band placed on. EKG completed in triage. Results shown to MD. bp 15:20 Elsy Melgoza, RN is Primary Nurse. 15:26 Patient has correct armband on for positive identification. Bed in low position. Call rv light in reach. Side rails up X 1. Fall risk band placed. Seizure precautions initiated. Pulse ox on. NIBP on. 15:58 Shuntogram XRAY In Process Unspecified. EDMS 16:[address] via stretcher. 2 16:03 CT completed. Patient tolerated procedure well. Patient moved back from CT. 2 16:04 CT Head Brain wo Cont In Process Unspecified. EDMS 16:08 Awaiting lab results, Awaiting radiology results. rv 16:44 No provider procedures requiring assistance completed. Patient did not have IV access rv during this emergency room visit. bleeding controlled, No redness/swelling at site. Pressure dressing applied. Administered Medications: No medications were administered Point of Care Testing: Blood Glucose: 15:07 Blood Glucose: 109 mg/dL; rv Ranges: Outcome: 16:32 Discharge ordered by MD. snw 16:44 Discharged to home ambulatory. rv 16:44 Condition: good 16:44 Discharge instructions given to patient, Instructed on discharge instructions, follow up and referral plans. Demonstrated understanding of instructions, follow-up care. 16:45 Patient left the ED. rv Signatures: Dispatcher [employer] EDMD Sreedhar Brett [email or web address] Elsy Melgoza, RN RN Nisha Perez FNP-C DATA WAREHOUSING MANAGER-Rajw Nereyda Lara 2 Isaak Valenzuela RN RN bp Vicente, Ronaldo, RN RN rv
[2018-08-29 16:49] VITALS: TEMP 98.7
[2018-08-29 16:52] VITALS: BP 138/100; O2SAT 97
--- NOTE | 2018-08-29 18:04 | EKG ---
Test Date: 2018-08-29 Test Time: 15:05:17 Dormitory Maid: DANDY MEASUREMENT RESULTS: Intervals: Rate: 99 DC: 132 QRSD: 78 QT: 324 QTc: 415 Bryant: P: 58 DC: 132 QRS: 53 T: 17 INTERPRETIVE STATEMENTS: Normal sinus rhythm Normal ECG Compared to ECG 12/27/2014 12:08:43 No significant changes Electronically Signed On 08-29-18 18:02:55 ENGRAVER TIRE MOLD by Richmond Orta
== END 2018-08-29 16:45 | disposition home or self-care (01) ==
LOC: ER 14:59
DX: G40.909 Epilepsy, unspecified, not intractable, without status epilepticus (principal); G91.9 Hydrocephalus, unspecified
CPT/HCPCS: 36415; 49427; 70450; 75809; 80048; 80076; 82962; 85025; 93005; 99284

== ENCOUNTER 2018-12-12 10:51 | Emergency (ER) | payer OTHER ==
--- OUTSIDE RECORDS SUMMARY | 2018-12-12 10:54 | XMS REPORT | Clinical Summary ---
:1965 Author Organization [facility] Address [address] [place] [address] Care Team Providers Name Role Phone Wilner Chery MD Primary Care Provider Allergies Active Allergy Reactions Severity Noted Date Comments No Known Drug Allergies 01/24/2016 Medications Medication Sig Dispensed Refills Start Date End Date Status PARoxetine (PAXIL) 30 Take 30 mg by 2 09/09/2017 Active MG tablet mouth nightly. APTIOM 600 mg tablet TAKE 2 180 tablet 3 05/10/2018 Active TABLETS (=1,200MG) NIGHTLY simvastatin (ZOCOR) TAKE 1 TABLET 90 tablet 3 05/10/2018 Active 20 MG tablet DAILY aspirin 325 MG tablet Take 325 mg 0 Active by mouth daily. cloBAZam (ONFI) 20 mg Take 2 60 tablet 5 10/04/2018 Active tablet tablets (40 9 mg total) by mouth daily for 180 days. VIMPAT 150 mg tablet TAKE 1/2 90 tablet 1 10/24/2018 Active TABLET TWICE 9 A DAY pantoprazole Take 1 tablet 90 tablet 3 11/02/2018 Active (PROTONIX) 40 MG EC (40 mg total) tablet by mouth daily. pantoprazole Take 1 tablet 0 Discontinued (PROTONIX) 40 MG EC by mouth 8 tablet daily. baclofen (LIORESAL) Take 10 mg by 3 08/21/2016 Discontinued 10 MG tablet mouth 8 nightly. eslicarbazepine Take 1,200 mg 180 tablet 3 02/22/2017 Discontinued (APTIOM) 600 mg by mouth 8 tablet nightly. simvastatin (ZOCOR) TAKE 1 TABLET 90 tablet 3 04/11/2017 Discontinued 20 MG tablet DAILY 8 meloxicam (MOBIC) 15 Take 1 tablet 0 06/22/2017 Discontinued mg tablet by mouth 8 daily. gabapentin Take 1 0 06/22/2017 Discontinued (NEURONTIN) 300 mg capsule by 8 capsule mouth 3 (three) times a day. lacosamide (VIMPAT) Take 1 tablet 90 tablet 1 10/13/2017 Discontinued 150 mg tablet (150 mg 8 total) by mouth daily for 180 days. 75 mg po bid. gabapentin Take 300 mg 3 09/16/2017 Discontinued (NEURONTIN) 600 mg by mouth 8 tablet daily. aspirin 325 MG tablet Take 325 mg 0 Discontinued by mouth 8 daily. cloBAZam (ONFI) 10 mg Take 40 mg by 0 Discontinued tablet mouth daily. 8 clonIDINE (CATAPRES) Take 0.1 mg 0 Discontinued 0.1 MG tablet by mouth 2 8 (two) times a day. aspirin-caffeine (BC) Take by 0 Discontinued 845-65 mg powder in mouth. 8 packet eslicarbazepine Take 900 mg 0 Discontinued (APTIOM) 600 mg by mouth 8 [...] total) by mouth nightly for 180 days. VIMPAT 150 mg tablet TAKE 1/2 90 tablet 1 04/21/2018 Discontinued TABLET TWICE 8 A DAY PARoxetine (PAXIL) 10 TAKE 1 TABLET 90 [...] moderate pain for up to 30 days. cloBAZam (ONFI) 20 mg Take 2 60 tablet 5 07/19/2018 Discontinued tablet tablets (40 8 mg total) by mouth daily for 180 days. sodium,potassium,mag Use as 2 Bottle 0 09/06/2018 Discontinued sulfates (SUPREP directed 9 BOWEL PREP KIT) 17.5-3.13-1.6 gram recon soln cloBAZam (ONFI) 20 mg Take 2 60 tablet 5 09/19/2018 Discontinued tablet tablets (40 8 mg total) by mouth daily for 180 days. pantoprazole Take 1 tablet 90 tablet 3 10/10/2018 Discontinued (PROTONIX) 40 MG EC (40 mg total) 9 tablet by mouth daily. 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 Epilepsy 01/24/2016 Headache 01/24/2016 HLD (hyperlipidemia) 01/24/2016 Obsessive-compulsive disorder 01/24/2016 Shoulder pain 01/24/2016 Skin lesion 01/24/2016 Encounters Date Type Specialty Care Team Description 12/06/2018 Office Visit Internal Medicine Wilner Chery Tremor (Primary Dx) MD Madeline 12/06/2018 Office Visit Neurology Vikash Cross, Temporal lobe epilepsy, intractable (HCC) (Primary Dx); Partial symptomatic epilepsy with complex partial seizures, intractable, with status epilepticus (HCC) 11/02/2018 Office Visit Gastroenterology Pete Gastroesophageal reflux [address] MD disease, esophagitis presence not specified (Primary Dx) 10/23/2018 Refill Neurology Vikash Cross MD 10/10/2018 Telephone GastroenterCarson Tidwell MD 10/09/2018 Telephone GastroenterCarson Tidwell MD 10/04/2018 Refill Neurology Bienvenido Burgos RN 09/19/2018 Refill Neurology Bienvenido Burgos RN 09/05/2018 Telephone GastroenterCarson Tidwell MD 09/01/2018 Telephone Gastroenterology Elaine Martinez MA 08/14/2018 Telephone Gastroenterology Carson Freeman MD 08/11/2018 Office Visit Neurosurgery Morro Shin Epidural lipomatosis ( Primary Dx); MD Usman Dorsey/Zhao lumbar laminectomy 08/11/2018 Hospital Encounter Radiology [place] Shin S/Zhao lumbar laminectomy MD Sunita 08/04/2018 Telephone GastroenterCarson Tidwell MD 07/19/2018 Office Visit Neurology Vikash Cross, Partial symptomatic MD epilepsy with complex partial seizures, intractable, with status epilepticus (Primary Dx) 07/19/2018 Office Visit Internal Medicine Wilner Chery Encounter for general adult medical examination with abnormal findings (Primary Dx); MD Madeline S/Zhao lumbar laminectomy; Hyperlipidemia, unspecified hyperlipidemia type; Screening for malignant neoplasm of prostate; Need for vaccination 06/09/2018 Office Visit Neurosurgery Morro Shin Epidural lipomatosis ( Primary Dx); MD Usman Dorsey/Zhao lumbar laminectomy 06/04/2018 Orders Only Neurosurgery Morro Shin S/P lumbar laminectomy MD Sunita (Primary Dx) 05/11/2018 Surgery General Surgery Mor[facility] Shin PARTIAL LUMBAR MD Sunita LAMINECTOMY [id number] 05/11/2018 Anesthesia Event General Surgery Parish Monte MD 05/11/2018 - Hospital Encounter Neurosurgery Morro Shin S/P lumbar laminectomy; 05/12/2018 MD Sunita Degenerative lumbar spinal stenosis 05/10/2018 Refill Internal Medicine Wilner Chery MD [...] Alexis RN 03/23/2018 Office Visit Neurology Vikash Cross, Localization-related MD epilepsy with complex partial seizures with intractable epilepsy (Primary Dx) 02/17/2018 Telephone Neurology Beth Alexis RN 12/13/2017 Office Visit Neurosurgery [place] Shin Epidural lipomatosis ( Primary Dx); MD Sunita Intractable seizures; Lumbar stenosis with neurogenic claudication; S/P ventricular shunt placement after 12/11/2017 Immunizations Name Dates Previously Given Next Due [...] Assigned at Date Recorded Not on file Job Start Date Occupation Industry Not on file Not on file Not on file Travel History Travel Start Travel End No recent travel history available. Last Filed Vital Signs Vital Sign Reading Time Taken Blood Pressure 125/89 12/06/2018 2:28 PM [employer] Pulse 92 12/06/2018 2:28 PM [employer] Temperature 36.2 C (97.2 F) 05/12/2018 7:29 AM CDT Respiratory Rate 18 05/12/2018 7:29 AM CDT Oxygen Saturation 93% 05/12/2018 7:29 AM CDT Inhaled Oxygen Concentration - - Weight 84.6 kg (186 lb 9.6 oz) 12/06/2018 2:28 PM [employer] Height 167.6 cm (5' 6") 12/06/2018 2:28 PM [employer] Body Mass Index 30.12 12/06/2018 2:28 PM [employer] Plan of Treatment Date Type Specialty Care Team Description 03/15/2019 Office Visit Neurology Vikash Cross MD [address] [facility] [address] [place] [address] Health Maintenance Due Date Last Done Comments SHINGLES VACCINES (1 of 2) 01/24/2019 Postponed from 2016 (Insurance / Financial) COLON CANCER SCREENING 10/24/2020 Postponed from 2016 (Not Indicated) INFLUENZA VACCINE Completed 07/19/2018, 07/19/2018, 09/24/2017 Procedures Procedure Name Priority Date/Time Associated Diagnosis Comments BASIC METABOLIC PANEL Routine 12/06/2018 3:08 Tremor Results for this PM [employer] procedure are in the results section. THYROID STIMULATING Routine 12/06/2018 3:08 Tremor Results for this HORMONE PM [employer] procedure are in the results section. MRI LUMBAR SPINE WO Routine 08/11/2018 10:02 [...] CDT procedure are in the results section. W[place] AN ELECTIVE Routine 05/11/2018 11:23 ENDOTRACHEAL AIRWAY [...] EXTENDED STAY URINALYSIS, AUTOMATED Routine 04/28/2018 12:20 PM Pre-op evaluation Results for this WITH MICROSCOPY CDT procedure are in the results section. COMPREHENSIVE METABOLIC Routine 04/28/2018 12:20 PM Pre-op evaluation Results for this PANEL CDT procedure are in the results section. PARTIAL THROMBOPLASTIN Routine 04/28/2018 12:20 PM Pre-op evaluation Results for this TIME (PTT) CDT procedure are in the results section. PROTHROMBIN TIME WITH Routine 04/28/2018 12:20 PM Pre-op evaluation Results for this INR CDT procedure are in the results section. CBC WITH PLATELET AND Routine 04/28/2018 12:20 PM Pre-op evaluation Results for this DIFFERENTIAL CDT procedure are in the results section. ECG 12-LEAD Routine 04/28/2018 11:54 AM Pre-op evaluation Results for this CDT procedure are in the results section. after 12/11/2017 Results Thyroid stimulating hormone (12/06/2018 3:08 PM [employer]) TSH 1.86 0.40 - 4.50 mIU/L [facility] Specimen Blood Narrative Performed At FASTING:NO [facility] FASTING: NO Resulting Agency Comment Performing Organization Information: Site ID: [id number] Name: [facility] Address: [address] [place] [phone] Director: Viviana Clark Performing Organization Address City/[facility] Phone Number [facility] [address] [address] Basic metabolic panel (12/06/2018 3:08 PM [employer]) Glucose 180 (H) 65 - 139 mg/dL [facility] Comment: [facility] Non-fasting reference interval BUN, whole blood 16 7 - 25 mg/dL [facility] Creatinine 1.10 0.70 - 1.33 [facility] Comment: mg/dL [facility] For patients >49 years of age, the reference limit for Creatinine is approximately 13% higher for people identified as -Burkinan. EGFR Non-Afr. Burkinan 77 > OR=60 [facility] mL/min/1.73m2 [facility] EGFR 89 > OR=60 [facility] mL/min/1.73m2 [facility] BUN/creatinine ratio NOT APPLICABLE 6 - 22 (calc) [facility] Sodium 139 135 - 146 mmol/L [facility] Potassium 4.1 3.5 - 5.3 mmol/L [facility] Chloride 102 98 - 110 mmol/L [facility] CO2 29 20 - 32 mmol/L [facility] Calcium 9.7 8.6 - 10.3 mg/dL [facility] Specimen Blood Narrative Performed At FASTING:NO [facility] FASTING: NO Resulting Agency Comment Performing Organization Information: Site ID: [id number] Name: [facility] Address: [address] [place] [phone] Director: Viviana Clark Performing Organization Address [facility] Hospital[facility] Phone Number [facility] [address] [address] MRI Lumbar Spine Wo Contrast (08/11/2018 10:02 AM CDT) Narrative Performed At EXAMINATION:MRI LUMBAR SPINE WO CONTRAST [facility] COMPARISON:October 08, 2017. CLINICAL HISTORY:Z98.890 Other [...] previous study. IMPRESSION:Postoperative changes as described above. [id number] Procedure Note Hm Interface, Radiology Results Incoming [...] study. IMPRESSION: Postoperative changes as described above. [id number] Performing Organization Address City/State/Zipcode Phone Number [facility] [address] [place] [address] CBC with platelet and differential (07/19/2018 8:55 AM CDT)Only the most recent of2 resultswithin the time period is included. WBC 7.2 3.8 - 10.8 Thousand/uL [facility] RBC 4.92 4.20 - 5.80 Million/uL [facility] HGB 15.1 13.2 - 17.1 g/dL [facility] HCT 44.6 38.5 - 50.0 % [facility] MCV 90.7 80.0 - 100.0 fL [facility] MCH 30.7 27.0 - 33.0 pg [facility] MCHC 33.9 32.0 - 36.0 g/dL [facility] RDW 12.0 11.0 - 15.0 % [facility] Platelet count 202 140 - 400 Thousand/uL [facility] MPV 10.2 7.5 - 12.5 fL [facility] Neutrophils, absolute 4,320 1,500 - 7,800 cells/uL [facility] Lymphocytes, absolute 2,016 850 - 3,900 cells/uL [facility] Monocytes, absolute 562 200 - 950 cells/uL [facility] Eosinophils, absolute 252 15 - 500 cells/uL [facility] Basophils, absolute 50 0 - 200 cells/uL [facility] Neutrophils 60 % [facility] Lymphocytes 28.0 % [facility] Monocytes 7.8 % [facility] Eosinophils 3.5 % [facility] Basophils + RC 0.7 % [facility] Specimen Blood Narrative Performed At FASTING:YES [facility] FASTING: YES Resulting Agency Comment Performing Organization Information: Site ID: [id number] Name: [facility] Address: [address] [place] [address] Director: Viviana Clark Performing Organization Address City/State/Zipcode Phone Number [facility] [address] [place] [address] Prostate specific antigen (07/19/2018 8:55 AM CDT) PSA 0.6 < OR=4.0 ng/mL [facility] Comment: The total PSA value from this assay system is standardized against the WHO standard. The test result will be approximately 20% lower when compared to the equimolar-standardized total PSA (Hayden Meridian). Comparison of serial PSA results should be interpreted with this fact in mind. This test was performed using the Siemens chemiluminescent method. Values obtained from different assay methods cannot be used interchangeably. PSA levels, regardless of value, should not be interpreted as absolute evidence of the presence or absence of disease. Specimen Blood Narrative Performed At FASTING:YES [facility]ST FASTING: YES Resulting Agency Comment Performing Organization Information: Site ID: [facility] Name: [facility] Address: [address] [place] [phone] Director: Viviana Clark Performing Organization Address City/State/Zipcode Phone Number [facility] [place] [phone] Lipid panel (07/19/2018 8:55 AM CDT) Cholesterol, total 182 <200 mg/dL [facility] HDL cholesterol 48 >40 mg/dL [facility] Triglycerides 115 <150 mg/dL [facility] LDL cholesterol 111 (H) mg/dL (calc) [facility] calculated Comment: [facility] Reference range: <100 Desirable range <100 mg/dL for primary prevention; <70 mg/dL for patients with CHD or diabetic patients with > or=2 CHD risk factors. LDL-C is now calculated using the Kelvin-Sofia calculation, which is a validated novel method providing better accuracy than the Friedewald equation in the estimation of LDL-C. Kelvin FERREIRA et al. ERMIAS. 2013;310(19): 0176-4764 (http://education.Fitnet/faq/WSS890) Cholesterol/HDL ratio 3.8 <5.0 (calc) [facility] Non-HDL cholesterol 134 (H) <130 mg/dL [facility] Comment: (calc) [facility] For patients with diabetes plus 1 major ASCVD risk factor, treating to a non-HDL-C goal of <100 mg/dL (LDL-C of <70 mg/dL) is considered a therapeutic option. Specimen Blood Narrative Performed At FASTING:YES [facility] FASTING: YES Resulting Agency Comment Performing Organization Information: Site ID: [id number] Name: [facility] Address: [address] [place] [phone] Director: Viviana Clark Performing Organization Address City/[facility]/Zipcode Phone Number [facility] [address] [place] [address] Comprehensive metabolic panel (07/19/2018 8:55 AM CDT)Only the most recent of2 resultswithin the time period is included. Glucose 148 (H) 65 - 99 mg/dL [facility] Comment: [facility] Fasting reference interval For someone without known diabetes, a glucose value >125 mg/dL indicates that they may have diabetes and this should be confirmed with a follow-up test. BUN, whole blood 14 7 - 25 mg/dL [facility] Creatinine 1.00 0.70 - 1.33 [facility] Comment: mg/dL [facility] For patients >49 years of age, the reference limit for Creatinine is approximately 13% higher for people identified as -Burkinan. EGFR Non-Afr. Burkinan 86 > OR=60 [facility] mL/min/1.73m2 [facility] EGFR 100 > OR=60 [facility] mL/min/1.73m2 [facility] BUN/creatinine ratio NOT APPLICABLE 6 - 22 (calc) [facility] Sodium 140 135 - 146 mmol/L [facility] Potassium 4.5 3.5 - 5.3 mmol/L [facility] Chloride 103 98 - 110 mmol/L [facility] CO2 31 20 - 32 mmol/L [facility] Calcium 9.5 8.6 - 10.3 mg/dL [facility] Protein 7.4 6.1 - 8.1 g/dL [facility] Albumin, S 4.3 3.6 - 5.1 g/dL [facility] Globulin, total 3.1 1.9 - 3.7 g/dL [facility] (calc) [facility] Albumin/globulin ratio 1.4 1.0 - 2.5 (calc) [facility] Total bilirubin 0.4 0.2 - 1.2 mg/dL [facility] Alkaline phosphatase 121 (H) 40 - 115 U/L [facility] AST 21 10 - 35 U/L [facility] ALT 46 9 - 46 U/L [facility] Specimen Blood Narrative Performed At FASTING:YES [facility] FASTING: YES Resulting Agency Comment Performing Organization Information: Site ID: [id number] Name: [facility] Address: [address] [place] [address] Director: Viviana Clark Performing Organization Address City/State/Zipcode Phone Number [facility] [address] [place], [place] [id number] Surgical pathology request (05/11/2018 3:36 PM CDT) [facility] DEPARTMENT OF PATHOLOGY AND GENOMIC MEDICINE Surgical pathology report See link below for PDF [facility] DEPARTMENT OF Lab Report PATHOLOGY AND GENOMIC MEDICINE Result status This is Final Report to [facility] DEPARTMENT OF [id number] PATHOLOGY AND GENOMIC MEDICINE Performing Organization Address [facility] Phone Number [facility] DEPARTMENT OF PATHOLOGY AND [address] [place] [address] GENOMIC MEDICINE XR Lumbar Spine 1 Vw (05/11/2018 12:30 PM CDT)Only the most recent of3 resultswithin the time [...] ball tip is at the S1 level. [id number] Procedure Note Hm Interface, Radiology Results Incoming - 05/11/2018 12:59 [...] ball tip is at the S1 level. [facility]-[id number] Performing Organization Address City/[facility]/Zipcode Phone Number [facility] [address] [place] [address] Urinalysis, automated with microscopy (04/28/2018 12:20 PM CDT) Color, UA YELLOW YELLOW [facility] Appearance CLEAR CLEAR [facility] Specific gravity, urine 1.025 1.001 - 1.035 [facility] pH, urine 7.0 5.0 - 8.0 [facility] Glucose, urine NEGATIVE NEGATIVE [facility] Bilirubin, UA NEGATIVE NEGATIVE [facility] Ketones, UA NEGATIVE NEGATIVE [facility] Occult blood, urine NEGATIVE NEGATIVE [facility] Protein, UA NEGATIVE NEGATIVE [facility] Nitrite, UA NEGATIVE NEGATIVE [facility] Leukocyte esterase, UA NEGATIVE NEGATIVE [facility] WBC, UA NONE SEEN < OR=5 /HPF [facility] RBC, UA NONE SEEN < OR=2 /HPF [facility] Squamous epithelial cells, UA NONE SEEN < OR=5 /HPF [facility] Bacteria, UA NONE SEEN NONE SEEN /HPF [facility] Hyaline casts, UA NONE SEEN NONE SEEN /LPF [facility] Specimen Urine Narrative Performed At FASTING:YES [facility] FASTING: YES Resulting Agency Comment Performing Organization Information: Site ID: [id number] Name: [facility] Address: [address] [place] [phone] Director: Viviana Clark Performing Organization Address [facility] Phone Number [facility] [address] [address] Partial thromboplastin time, activated (04/28/2018 12:20 PM CDT) PTT 27 22 - 34 sec [facility] Comment: This test has not been validated for monitoring unfractionated heparin therapy. For testing that is validated for this type of therapy, please refer to the Heparin Anti-Xa assay (test code 02498). For additional information, please refer to http://education.Fitnet/faq/YSD355 (This link is being provided for informational/educational purposes only.) Specimen Blood Narrative Performed At FASTING:YES [facility] FASTING: YES Resulting Agency Comment Performing Organization Information: Site ID: [id number] Name: [facility] Address: [address] [place] [phone] Director: Viviana Clark Performing Organization Address [facility]/Zipcode Phone Number [facility] [address] [address] Prothrombin time with INR (04/28/2018 12:20 PM CDT) INR 1.0 [facility] Comment: Reference Range 0.9-1.1 Moderate-intensity Warfarin Therapy 2.0-3.0 Higher-intensity Warfarin Therapy 3.0-4.0 Prothrombin time 10.8 9.0 - 11.5 sec [facility] Comment: For more information on this test, go to: http://education.[employer]/faq/XYR490 Specimen Blood Narrative Performed At FASTING:YES [facility] FASTING: YES Resulting Agency Comment Performing Organization Information: Site ID: [id number] Name: [facility] Address: [address] [place] [address] Director: Viviana Clark Performing Organization Address City/[facility] Phone Number [facility] [address] [place] [address] ECG 12 lead (04/28/2018 11:54 AM CDT) Ventricular rate 68 [facility] Atrial rate 68 [facility] WV interval 138 [facility] QRSD interval 84 [facility] QT interval 362 [facility] QTC interval 384 [facility] P axis 1 60 [facility] QRS axis 1 52 [facility] T wave axis 22 [facility] EKG impression Normal sinus rhythm-Nonspecific T wave [facility] abnormality-Abnormal ECG-In automated comparison with ECG of 10-MAR-2017 13:20,-No significant change was found- Performing Organization Address [facility] Phone Number [facility] [address] [place] [address] after 12/11/2017 Insurance Payer Benefit Plan / Group Subscriber ID Type Phone Address MEDICARE MEDICARE PART A AND B xxxxxxxxxxx Medicare [place], [place] [employer] A[employer] INDEMNITY xxxxxxxxx Indemnity ([place]) [place] [address] Advance Directives Patient has advance care planning documents on file. For more information, please contact:Rishi Varghese[address] [place] [address]
--- NOTE | 2018-12-12 12:18 | ER ---
Nurse's Notes [facility] Name: Jay Guzman Jr Age: 53 yrs Sex: Male : 1965 Arrival Date: 12/12/2018 Time: 10:54 Bed 13 Private MD: Diagnosis: Acute pharyngitis Presentation: 12/12 11:00 Presenting complaint: Patient states: "My tonsils are elongated and bleeding.". hb Transition of care: patient was not received from another setting of care. Onset of symptoms was December 12, 2018. Risk Assessment: Do you want to hurt yourself or someone else? Patient reports no desire to harm self or others. Care prior to arrival: None. 11:00 Method Of Arrival: Ambulatory hb 11:00 Acuity: JOMAR 4 hb 11:00 Initial Sepsis Screen: Does the patient meet any 2 criteria? No. Patient's initial rb1 sepsis screen is negative. Does the patient have a suspected source of infection? No. Patient's initial sepsis screen is negative. 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 - Social history:: Smoking status: Patient/guardian denies using tobacco. - Ebola Screening: : No symptoms or risks identified at this time. Screenin:03 Abuse screen: Denies threats or abuse. Denies injuries from another. Nutritional hb screening: No deficits noted. Tuberculosis screening: No symptoms or risk factors identified. Fall Risk None identified. Assessment: 11:00 General: Appears in no apparent distress. comfortable, Behavior is calm, cooperative. rb1 Pain: Complains of pain in throat Pain currently is 5 out of 10 on a pain scale. Pain began this morning. Pt. reports tonsils feel swollen and are bleeding. Neuro: Level of Consciousness is awake, alert, obeys commands, Oriented to person, place, time, situation. Cardiovascular: Capillary refill < 3 seconds is brisk in bilateral fingers. Respiratory: Airway is patent Respiratory effort is even, unlabored, Respiratory pattern is regular, symmetrical. GI: No signs and/or symptoms were reported involving the gastrointestinal system. : No signs and/or symptoms were reported regarding the genitourinary system. EENT: Throat is reddened. Derm: Skin is pink, warm \\T\\ dry. Vital Signs: 11:01 BP 148 / 108; Pulse 103; Resp 16; Temp 97.4; Pulse Ox 97% on R/A; Pain 5/10; hb ED Course: 10:54 Patient arrived in ED. as 11:00 Triage completed. hb 11:00 Patient has correct armband on for positive identification. Bed in low position. Call rb1 light in reach. Side rails up X 1. Pulse ox on. NIBP on. 11:01 Arm band placed on. hb 11:05 Nikkie Benítez, RN is Primary Nurse. [facility] 11:12 Sae Bill MD is Attending Physician. 11:33 Influenza Screen (a \\T\\ B) Sent. [facility] 11:33 Strep Sent. 5 11:33 Flu and/or RSV swab sent to lab. Strep swab sent to lab. 5 12:45 No provider procedures requiring assistance completed. Patient did not have IV access rb1 during this emergency room visit. 13:45 Throat Culture Sent. rb1 Administered Medications: No medications were administered Outcome: 12:17 Discharge ordered by MD. gs 12:45 Patient left the ED. rb1 12:45 Discharged to home ambulatory, with friend. rb1 12:45 Condition: stable 12:45 Discharge instructions given to patient, Instructed on discharge instructions, follow up and referral plans. Demonstrated understanding of instructions, follow-up care, Prescriptions given X none Signatures: Lisandra Angelo Rebecca, SHEFALI RN [facility] Dary Breaux RN RN Rashida Angelo [facility] Sae Bill MD MD Corrections: (The following items were deleted from the chart) 11:15 11:03 Home Meds: Aptiom 600 mg oral tab once daily; hb rb1 11:15 11:03 Home Meds: simvastatin 20 mg oral tab once daily; rb1 11:15 11:03 Home Meds: clobazam oral oral; rb1 13:44 13:00 Patient left the ED. rb1 rb1
--- NOTE | 2018-12-12 12:18 | EDPHYS ---
Physician Documentation [facility] Name: Jay Guzman Jr Age: 53 yrs Sex: Male : 1965 Arrival Date: 12/12/2018 Time: 10:54 Bed 13 Private MD: ED Physician Sae Bill HPI: 12/12 12:15 This 53 yrs old Male presents to ER via Ambulatory with complaints of Tonsils gs Bleeding. 12:15 The patient presents with sore throat. Onset: The symptoms/episode began/occurred this morning. Severity of symptoms: At their worst the symptoms were moderate, in the emergency department the symptoms are unchanged. Associated signs and symptoms: Pertinent positives: flu-like symptoms, Pertinent negatives chills, fever. The patient has experienced similar episodes in the past, a few times. 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 - Social history:: Smoking status: Patient/guardian denies using tobacco. - Ebola Screening: : No symptoms or risks identified at this time. ROS: 12:15 All other systems are negative. gs Exam: 12:15 Head/Face: Normocephalic, atraumatic. Eyes: Pupils equal round and reactive to light, gs extra-ocular motions intact. Lids and lashes normal. Conjunctiva and sclera are non-icteric and not injected. Cornea within normal limits. Periorbital areas with no swelling, redness, or edema. Neck: Trachea midline, no thyromegaly or masses palpated, and no cervical lymphadenopathy. Supple, full range of motion without nuchal rigidity, or vertebral point tenderness. No Meningismus. Chest/axilla: Normal chest wall appearance and motion. Nontender with no deformity. No lesions are appreciated. Cardiovascular: Regular rate and rhythm with a normal S1 and S2. No gallops, murmurs, or rubs. Normal PMI, no JVD. No pulse deficits. Respiratory: Lungs have equal breath sounds bilaterally, clear to auscultation and percussion. No rales, rhonchi or wheezes noted. No increased work of breathing, no retractions or nasal flaring. Abdomen/GI: Soft, non-tender, with normal bowel sounds. No distension or tympany. No guarding or rebound. No evidence of tenderness throughout. Back: No spinal tenderness. No costovertebral tenderness. Full range of motion. Skin: Warm, dry with normal turgor. Normal color with no rashes, no lesions, and no evidence of cellulitis. MS/ Extremity: Pulses equal, no cyanosis. Neurovascular intact. Full, normal range of motion. Neuro: Awake and alert, GCS 15, oriented to person, place, time, and situation. Cranial nerves II-XII grossly intact. Motor strength 5/5 in all extremities. Sensory grossly intact. Cerebellar exam normal. Normal gait. 12:15 Constitutional: The patient appears alert, awake. 12:15 ENT: TM's: are normal, no evidence of bulging, no erythema, Posterior pharynx: Tonsils: bilaterally enlarged, with erythema, erythema, that is moderate. Vital Signs: 11:01 BP 148 / 108; Pulse 103; Resp 16; Temp 97.4; Pulse Ox 97% on R/A; Pain 5/10; hb MDM: 11:15 Patient medically screened. 12:15 Differential diagnosis: group A strep tonsillitis, pharyngitis, viral syndrome. Data gs reviewed: vital signs, nurses notes. Data reviewed: lab test result(s). Counseling: I had a detailed discussion with the patient and/or guardian regarding: the historical points, exam findings, and any diagnostic results supporting the discharge/admit diagnosis, the need for outpatient follow up. Response to treatment: the patient's symptoms have mildly improved after treatment. 12/12 11:15 Order name: Strep; Complete Time: 12:14 12/12 11:15 Order name: Influenza Screen (a \T\ B); Complete Time: 12:14 12/12 12:13 Order name: Throat Culture EDMS Administered Medications: No medications were administered Disposition: 12/12/18 12:17 Discharged to Home. Impression: Acute pharyngitis. - Condition is Stable. - Discharge Instructions: Pharyngitis, [id number], Managing Your Hypertension. - Medication Reconciliation Form, Thank You Letter, Antibiotic Education, Prescription Opioid Use form. - Follow up: Private Physician; When: 2 - 3 days; Reason: Re-evaluation by your physician. Signatures: Dispatcher [employer] EDMS Nikkie Benítez RN RN rb1 Dary Breaux RN RN Sae Bill MD MD Corrections: (The following items were deleted from the chart) 11:15 11:03 Home Meds: Aptiom 600 mg oral tab once daily; rb1 11:15 11:03 Home Meds: simvastatin 20 mg oral tab once daily; rb1 11:15 11:03 Home Meds: clobazam oral oral; rb1 13:00 12:17 12/12/2018 12:17 Discharged to Home. Impression: Acute pharyngitis. Condition is rb1 Stable. Forms are Medication Reconciliation Form, Thank You Letter, Antibiotic Education, Prescription Opioid Use. Follow up: Private Physician; When: 2 - 3 days; Reason: Re-evaluation by your physician. gs
[2018-12-12 13:06] VITALS: BP 148/108; TEMP 97.4; O2SAT 97
== END 2018-12-12 13:00 | disposition home or self-care (01) ==
LOC: ER 10:51
DX: J02.9 Acute pharyngitis, unspecified (principal)
CPT/HCPCS: 87070; 87081; 87804; 99283

== ENCOUNTER 2019-12-29 01:13 | Emergency (ER) | payer OTHER ==
[2019-12-29 02:32] LABS: Absolute Lymphocytes (CBC) 1.9 K/uL (0.7-4.9); Basophils % 0.4 % (0-1.3); Hematocrit 43.2 % (39.6-49.0); Lymphocytes % 38.1 % (15.3-44.8); MPV 8.9 fL (7.6-11.3); RBC Red Blood Cell Count 4.48 M/uL (4.33-5.43)
[2019-12-29 02:34] LABS: Protime INR 0.82
[2019-12-29 02:54] LABS: ALT/SGPT 51 U/L (12-78); AST/SGOT 40 U/L (15-37); Albumin 3.9 g/dL (3.4-5.0); Alkaline Phosphatase 150 U/L (45-117); BUN Blood Urea Nitrogen 10 mg/dL (7-18); Bicarbonate 27 mmol/L (21-32); Bilirubin Direct 0.1 mg/dL (0-0.2); Bilirubin Total 0.3 mg/dL (0.2-1.0); Glucose Level 251 mg/dL (74-106); Magnesium 2.1 mg/dL (1.8-2.4); Potassium 3.6 mmol/L (3.5-5.1); Protein, Total 8.2 g/dL (6.4-8.2); Sodium Level 142 mmol/L (136-145); Troponin (Emerg Dept Use Only) < 0.02 ng/mL (0.0-0.045)
[2019-12-29] MEDS ORDERED: TETANUS & DIPHTHERIA TOX,ADULT 0.5 ML VIAL ONE (03:08)
[2019-12-29 03:20] LABS: Urine Blood 2+ (NEG); Urine Glucose 2+ (NEG); Urine Protein NEGATIVE (NEG); Urine pH 5.5 (5.0-7.0)
[2019-12-29 03:30] LABS: Barbiturates NEGATIVE (NEGATIVE); Benzodiazepines POSITIVE (NEGATIVE); Cocaine NEGATIVE (NEGATIVE); METHAMPHETAM NEGATIVE (NEGATIVE); Methadone NEGATIVE (NEGATIVE); Opiates NEGATIVE (NEGATIVE); Phencyclidine NEGATIVE (NEGATIVE); THC Cannibis NEGATIVE (NEGATIVE)
--- NOTE | 2019-12-29 06:27 | ER ---
Nurse's Notes [facility] Name: Jay Guzman Jr Age: 54 yrs Sex: Male : 1965 Arrival Date: 12/29/2019 Time: : Bed 8 Private MD: Diagnosis: Alcohol intoxication Presentation: 12/28 01:26 Chief complaint: EMS states: "the reported drinking a couple of ed and coke's. he jd3 woke up after going to sleep and fell and hit his head.". Coronavirus screen: The patient has NOT traveled to a country currently being monitored by the [facility] within the last 14 days. The patient has NOT had contact with any known and/or suspected case of coronavirus. Proceed with normal triage procedures. Ebola Screen: Patient negative for fever greater than or equal to 101.5 degrees Fahrenheit, and additional compatible Ebola Virus Disease symptoms. Initial Sepsis Screen: Does the patient meet any 2 criteria? No. Patient's initial sepsis screen is negative. Does the patient have a suspected source of infection? No. Patient's initial sepsis screen is negative. Risk Assessment: Do you want to hurt yourself or someone else? Patient reports no desire to harm self or others. 01:26 Method Of Arrival: EMS: [facility] jd3 :26 Acuity: JOMAR 3 jd3 01:32 Onset of symptoms was December 29, 2019. 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 - Social history:: Smoking status: Patient denies any tobacco usage or history of. Screenin:32 Abuse screen: Denies threats or abuse. Nutritional screening: No deficits noted. jd3 Tuberculosis screening: No symptoms or risk factors identified. Fall Risk Fall in past 12 months (25 points). Ambulatory Aid- None/Bed Rest/Nurse Assist (0 pts). Gait- Impaired (20 pts.). Mental Status- Overestimates/Forgets Limitations (15 pts.). Total García Fall Scale indicates High Risk Score (45 or more points). Fall prevention measures have been instituted. Side Rails Up X 2 Placed Close to Nursing Station Frequent Obs/Assessments Occuring Family Present and informed to notify staff if the need to leave the bedside. Assessment: 01:30 General: Appears in no apparent distress. comfortable, Behavior is calm, cooperative, jd3 drowsy, Smells of alcohol. Pain: Denies pain. Neuro: Level of Consciousness is awake, obeys commands, Oriented to person, place, Moves all extremities. Full function Speech is slurred. Cardiovascular: Denies chest pain, Heart tones S1 S2 present Capillary refill < 3 seconds Patient's skin is warm and dry. Respiratory: Airway is patent Respiratory effort is even, unlabored, Respiratory pattern is regular, symmetrical, Breath sounds are clear bilaterally. Denies cough, shortness of breath. GI: No signs and/or symptoms were reported involving the gastrointestinal system. Abdomen is round non-distended, Patient currently denies diarrhea, nausea, vomiting. : No signs and/or symptoms were reported regarding the genitourinary system. EENT: No signs and/or symptoms were reported regarding the EENT system. Derm: Skin is intact, Skin is dry, Skin is normal, Skin temperature is warm. Musculoskeletal: Circulation, motion, and sensation intact. Range of motion: intact in all extremities. 01:35 Injury Description: Laceration sustained to right side of the back of head is clean, jd3 2.6 to 7.5 cm long, not bleeding. 02:45 Reassessment: Patient appears in no apparent distress at this time. No changes from jd3 previously documented assessment. Patient and/or family updated on plan of care and expected duration. Pain level reassessed. Terrance EQUIPMENT OPERATOR/LABORER/SUPERVISOR at bedside with laceration repair using tavia. 03:10 Reassessment: Patient appears in no apparent distress at this time. Patient and/or jd3 family updated on plan of care and expected duration. Pain level reassessed. Patient is alert, oriented x 3, equal unlabored respirations, skin warm/dry/pink. provider at bedside discussing plan of care with pt. pt reporting recent history of suicidal thoughts. pt currently denies suicidal thoughts. pt's reports concerns over pt's mental health condition. Neuro: Level of Consciousness is awake, alert, obeys commands, Oriented to person, place, time, situation. 04:22 Reassessment: Patient appears in no apparent distress at this time. Patient and/or [facility] family updated on plan of care and expected duration. Pain level reassessed. Patient is alert, oriented x 3, equal unlabored respirations, skin warm/dry/pink. pt resting in bed awaiting [facility] Bottle And Glass Inspector. 04:46 Reassessment: [facility] at bedside. [facility] 05:42 Reassessment: Patient appears in no apparent distress at this time. Patient and/or j family updated on plan of care and expected duration. Pain level reassessed. Patient is alert, oriented x 3, equal unlabored respirations, skin warm/dry/pink. awaiting disposition. 06:45 Reassessment: Patient appears in no apparent distress at this time. Patient and/or [facility] family updated on plan of care and expected duration. Pain level reassessed. Patient is alert, oriented x 3, equal unlabored respirations, skin warm/dry/pink. discharge pending, awaiting ride. resting with eyes closed, even and unlabored respirations, no signs of distress noted at this time. 07:00 Reassessment: RECD REPORT FROM ROBERTO MEEHAN. 54YO WM P/W FALL AND ETOH INTOXICATION. PT bp COMBATIVE WITH STAFF AND FAMILY. PER AND [facility], PT TO D/C HOME WHEN CLINICALLY SOBER. 07:13 Reassessment: PT SLEEPING BUT AROUSES TO PHYSICAL STIMULI. SPEECH REMAINS SLURRED WITH bp DELAYED RESPONSES. D/C REMAINS ON HOLD. 07:49 Reassessment: PT D/C HOME VIA W/C WITH FAMILY, DX WITH HEAD LACERATION. PT AO4, bp AMBULATES WITH FAMILY ASSISTANCE. Vital Signs: 01:29 BP 119 / 85; Pulse 80; Resp 18 S; Temp 98.4(O); Pulse Ox 96% on R/A; Weight 83.91 kg jd3 (R); Height 5 ft. 5 in. (165.10 cm) (R); Pain 0/10; 02:55 BP 132 / 87; Pulse 74; Resp 17 S; Pulse Ox 100% on R/A; Pain 0/10; jd3 03:13 Pulse 75; Resp 16 S; Pulse Ox 97% on R/A; Pain 0/10; jd3 04:23 BP 127 / 83; Pulse 78; Resp 19 S; Pulse Ox 97% on R/A; Pain 0/10; jd3 06:49 BP 122 / 84; Pulse 68; Resp 18 S; Pulse Ox 98% on R/A; Pain 0/10; jd3 07:00 BP 116 / 74; Pulse 69; Resp 17; Pulse Ox 97% ; bp 01:29 Body Mass Index 30.79 (83.91 kg, 165.10 cm) jd3 Marleny Coma Score: 02:04 Eye Response: spontaneous(4). Verbal Response: oriented(5). Motor Response: obeys la1 commands(6). Total: 15. ED Course: 01:15 Inserted saline lock: 20 gauge in right antecubital area, using aseptic technique. jd3 Blood collected. placed by [employer]. 01:25 Patient arrived in ED. jd3 01:25 Domingo Og, SHEFALI is Primary Nurse. jd3 01:28 Triage completed. jd3 01:29 Terrance Nation FNP-C [facility]. la1 01:29 Jp Ochoa MD is Attending Physician. la1 01:30 Arm band placed on. jd3 01:32 Patient has correct armband on for positive identification. Placed in gown. Bed in low jd3 position. Call light in reach. Side rails up X2. Adult w/ patient. Pulse ox on. NIBP on. 02:52 Assist provider with laceration repair on right side of the back of head that was jd3 between 2.6 to 7.5 cm using tavia. Set up tray. Performed by Terrance SUMNER Patient tolerated well. 02:57 Head C Spine Mpr Wo Con In Process Unspecified. EDMS 03:19 Chest Single View In Process Unspecified. EDMS 07:49 IV discontinued, intact, bleeding controlled, No redness/swelling at site. Pressure bp dressing applied. Administered Medications: 03:14 Drug: Tetanus-Diphtheria Toxoid Adult 0.5 ml {Secondary School Registrar: [employer]. Exp: jd3 09/21/2021. Lot #: [id number]. } Route: IM; Site: left deltoid; 04:10 Follow up: Response: No adverse reaction jd3 Outcome: 06:26 Discharge ordered by . shad 07:49 Discharged to home via wheelchair, with family. bp 07:49 Condition: stable 07:49 Discharge instructions given to patient, family, Instructed on discharge instructions, follow up and referral plans. wound care, Demonstrated understanding of instructions, follow-up care, wound care. 07:51 Patient left the ED. bp Signatures: Dispatcher [employer] EDMS Jp Ochoa MD MD pkl Attema, Lee, ANIMAL SHELTER CLERK-C ANIMAL SHELTER CLERK-Cla1 Domingo Og RN RN Isaak العلي RN RN bp Corrections: (The following items were deleted from the chart) 01:48 01:30 Cardiovascular: Denies chest pain, Capillary refill < 3 seconds Patient's skin is jd3 warm and dry. jd3 01:48 01:30 Respiratory: Airway is patent Respiratory effort is even, unlabored, Respiratory jd3 pattern is regular, symmetrical, Denies cough, shortness of breath jd3 02:57 02:52 Reassessment: Patient appears in no apparent distress at this time. No changes jd3 from previously documented assessment. Patient and/or family updated on plan of care and expected duration. Pain level reassessed. jd3 03:14 03:10 Reassessment: Patient appears in no apparent distress at this time. Patient jd3 and/or family updated on plan of care and expected duration. Pain level reassessed. Patient is alert, oriented x 3, equal unlabored respirations, skin warm/dry/pink. provider at bedside discussing plan of care with pt. pt reporting recent history of suicidal thoughts. pt currently denies suicidal thoughts. pt's reports concerns over pt's mental health condition. jd3 06:49 05:42 Reassessment: Patient appears in no apparent distress at this time. Patient jd3 and/or family updated on plan of care and expected duration. Pain level reassessed. Patient is alert, oriented x 3, equal unlabored respirations, skin warm/dry/pink. awaiting disposition. jd3
--- NOTE | 2019-12-29 06:28 | EDPHYS ---
Physician Documentation [facility] Name: Jay Guzman Jr Age: 54 yrs Sex: Male : 1965 Arrival Date: 12/29/2019 Time: 01:25 Bed 8 Private MD: ED Physician Jp Ochoa HPI: 12/28 02:04 This 54 yrs old Male presents to ER via EMS with complaints of fall injury. la1 02:04 The patient or guardian reports a laceration, irregular. The complaints affect the la1 right side of the back of head. Context of injury: The problem was sustained at home. Onset: The symptoms/episode began/occurred just prior to arrival. Associated signs and symptoms: Pertinent positives: patient admits to or smells of alcohol consumption. Severity of symptoms: At their worst the symptoms were moderate. It is unknown whether or not the patient has had similar symptoms in the past. pt reports he was in the bathroom and fell hitting his head. States he does not know while he fell but admits to drinking alcohol. 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 . 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 - Social history:: Smoking status: Patient denies any tobacco usage or history of. ROS: 02:05 Constitutional: Negative for fever, chills, and weight loss, Eyes: Negative for injury, la1 pain, redness, and discharge, Neck: Negative for injury, pain, and swelling, Cardiovascular: Negative for chest pain, palpitations, and edema, Respiratory: Negative for shortness of breath, cough, wheezing, and pleuritic chest pain, Abdomen/GI: Negative for abdominal pain, nausea, vomiting, diarrhea, and constipation, Back: Negative for injury and pain, MS/Extremity: Negative for injury and deformity, Neuro: Negative for headache, weakness, numbness, tingling, and seizure. 02:05 Skin: Positive for laceration(s), of the right side of the back of head. Exam: 03:02 Constitutional: This is a well developed, well nourished patient who is awake, alert, la1 and in no acute distress. Head/Face: Normocephalic, atraumatic. Eyes: Pupils equal round and reactive to light, extra-ocular motions intact. Lids and lashes normal. Conjunctiva and sclera are non-icteric and not injected. Cornea within normal limits. Periorbital areas with no swelling, redness, or edema. ENT: Mucous membranes moist. Neck: Trachea midline, Chest/axilla: Normal chest wall appearance and motion. Nontender with no deformity. No lesions are appreciated. Cardiovascular: Regular rate and rhythm with a normal S1 and S2. No gallops, murmurs, or rubs. Normal PMI, no JVD. No pulse deficits. Respiratory: Lungs have equal breath sounds bilaterally, clear to auscultation Abdomen/GI: Soft, non-tender, with normal bowel sounds. No distension or tympany. No guarding or rebound. No evidence of tenderness throughout. 03:02 Skin: injury, laceration(s), the wound is approximately 3 cm(s), with a depth of 0.5 cm(s), of the right side of the back of head. Vital Signs: 01:29 BP 119 / 85; Pulse 80; Resp 18 S; Temp 98.4(O); Pulse Ox 96% on R/A; Weight 83.91 kg jd3 (R); Height 5 ft. 5 in. (165.10 cm) (R); Pain 0/10; 02:55 BP 132 / 87; Pulse 74; Resp 17 S; Pulse Ox 100% on R/A; Pain 0/10; jd3 03:13 Pulse 75; Resp 16 S; Pulse Ox 97% on R/A; Pain 0/10; jd3 04:23 BP 127 / 83; Pulse 78; Resp 19 S; Pulse Ox 97% on R/A; Pain 0/10; jd3 06:49 BP 122 / 84; Pulse 68; Resp 18 S; Pulse Ox 98% on R/A; Pain 0/10; jd3 07:00 BP 116 / 74; Pulse 69; Resp 17; Pulse Ox 97% ; bp 01:29 Body Mass Index 30.79 (83.91 kg, 165.10 cm) jd3 [place] Coma Score: 02:04 Eye Response: spontaneous(4). Verbal Response: oriented(5). Motor Response: obeys la1 commands(6). Total: 15. Laceration: 03:01 Wound Repair of 3cm ( 1.2in ) subcutaneous laceration to right side of the back of la1 head. Distal neuro/vascular/tendon intact. Wound prep: Moderate cleansing, Copious irrigation. Skin closed with 5 1-0 [place] using simple sutures and sterile technique. Patient tolerated well. MDM: 02:06 Patient medically screened. la1 03:03 Data reviewed: vital signs, nurses notes, lab test result(s), EKG, radiologic studies, la1 I have discussed the patient's presentation/case with the attending Emergency Department Physician;. Counseling: I had a detailed discussion with the patient and/or guardian regarding: the historical points, exam findings, and any diagnostic results supporting the discharge/admit diagnosis, lab results, radiology results. ED course: approached me and expressed concern for pt mental health. After speaking with pt he admitted that one week ago he was suicidal with a plan to "blow his brains out" pt reports he does have access to a gun. States he has not has these thoughts since then and denies SI/HI at this time. 12/28 02:28 Order name: Basic Metabolic Panel; Complete Time: 06:24 EDMS 12/28 02:28 Order name: Liver (Hepatic) Function; Complete Time: 06:24 EDMS 12/28 02:28 Order name: Troponin (Emerg Dept Use Only); Complete Time: 06:24 EDMS 12/28 02:28 Order name: Magnesium; Complete Time: 06:24 EDMS 12/28 02:28 Order name: CBC with Automated Diff; Complete Time: 06:24 EDMS 03 02:28 Order name: Protime (+INR); Complete Time: 06:24 EDMS 12/28 03:01 Order name: UDS; Complete Time: 06:24 la1 12/28 03:02 Order name: ETOH Level; Complete Time: 06:24 12/28 01:33 Order name: EKG; Complete Time: 02:29 12/28 01:33 Order name: Cardiac monitoring; Complete Time: 02:07 12/28 01:33 Order name: EKG - Nurse/Tech; Complete Time: 02:08 12/28 01:33 Order name: IV Saline Lock; Complete Time: 02:38 12/28 01:33 Order name: Labs collected and sent; Complete Time: 02:38 12/28 01:33 Order name: O2 Per Protocol; Complete Time: 01:47 12/28 01:33 Order name: O2 Sat Monitoring; Complete Time: 01:47 12/28 02:06 Order name: Wound Care; Complete Time: 03:00 12/28 02:18 Order name: Chest Single View EDMS 12/28 02:20 Order name: Head C Spine Mpr Wo Con EDMS 12/28 03:18 Order name: Urine Dipstick--Ancillary (enter results); Complete Time: 06:24 oe Administered Medications: 03:14 Drug: Tetanus-Diphtheria Toxoid Adult 0.5 ml {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 Exp: jd3 09/21/2021. Lot #: [id number]. } Route: IM; Site: left deltoid; 04:10 Follow up: Response: No adverse reaction jd3 Disposition: 06:25 Co-signature as Attending Physician, Jp Ochoa MD. pkl Disposition: 12/29/19 06:26 Discharged to Home. Impression: Alcohol intoxication. - Condition is Stable. - Medication Reconciliation Form, Thank You Letter, Antibiotic Education, Prescription Opioid Use form. - Follow up: Private Physician; When: 2 - 3 days; Reason: Re-evaluation by your physician. - Problem is new. - Symptoms have improved. Signatures: Dispatcher [employer] EDNE Jp Ochoa MD MD pkl Terrance Nation FNP-C HISTORIOGRAPHER-Cla1 Domingo Og RN RN jIsaak Ricks, RN RN bp Corrections: (The following items were deleted from the chart) 02:41 02:29 BASIC METABOLIC PANEL+C.LAB.BRZ ordered. EDNE EDMS 02:41 02:29 HEPATIC FUNCTION+C.LAB.BRZ ordered. EDMS EDMS 02:41 02:29 MAGNESIUM+C.LAB.BRZ ordered. EDMS EDMS 02:41 02:29 TROPONIN (EMERG DEPT USE ONLY)+C.LAB.BRZ ordered. EDMS EDMS 02:42 02:29 CBC+H.LAB.BRZ ordered. EDMS EDMS 02:42 02:29 PROTIME (+INR)+COAG.LAB.BRZ ordered. EDMS EDMS 02:52 02:29 Head C Spine MPR Wo Con+CT.RAD.BRZ ordered. EDMS EDMS 03:19 02:29 Chest Single View+RAD.RAD.BRZ ordered. EDMS EDMS 07:51 06:26 12/29/2019 06:26 Discharged to Home. Impression: Alcohol intoxication. Condition bp is Stable. Forms are Medication Reconciliation Form, Thank You Letter, Antibiotic Education, Prescription Opioid Use. Follow up: Private Physician; When: 2 - 3 days; Reason: Re-evaluation by your physician. Problem is new. Symptoms have improved. pkl
--- NOTE | 2019-12-29 07:35 | EKG ---
Test Date: 2019-12-29 Test Time: 02:05:15 Operations Support Coordinator: SULMA MEASUREMENT RESULTS: Intervals: Rate: 76 NJ: 146 QRSD: 84 QT: 394 QTc: 443 [place]: P: 48 NJ: 146 QRS: 17 T: 2 INTERPRETIVE STATEMENTS: Normal sinus rhythm Normal ECG Compared to ECG 08/29/2018 15:05:17 No significant changes Electronically Signed On 12-29-19 07:35:19 DECORATING MACHINE OPERATOR by Conrado Lujan
[2019-12-29 07:59] VITALS: TEMP 98.4
[2019-12-29 08:06] VITALS: BP 116/74; O2SAT 97
--- NOTE | 2019-12-29 09:45 | RAD REPORT ---
EXAM DESCRIPTION: El Single View12/29/2019 3:19 am CLINICAL HISTORY: Chest pain COMPARISON: none FINDINGS: The lungs appear clear of acute infiltrate. The heart is normal size IMPRESSION: No acute abnormalities displayed
--- NOTE | 2019-12-31 12:52 | RAD REPORT ---
EXAM DESCRIPTION: CT - Head C Spine Mpr Wo Con - 12/29/2019 6:13 am CLINICAL HISTORY: TRAUMA COMPARISON: CT head without contrast 08/29/2018. TECHNIQUE: Axial [address] imaging of the brain. Axial [address] imaging of the cervical spine. Reformatted coronal and sagittal images obtai osbaldo. This examination was performed according to our departmental dose optimization program, which include s automated exposure control, adjustment of the mA and/or kV according to patient size and/or use of iterative reconstruction technique. FINDINGS: CT Head: There is a hypodensity along the medial facet of the left temporal lobe due to a remote infarct. Ther e is no intraparenchymal or extra-axial hemorrhage. No mass or midline shift. No edema. Right parieta l ventriculostomy shunt catheter traverses the midline terminating within the anterior body of the le ft lateral ventricle. Ventricle size has relatively increased since reference exam. There is no midli ne shift. There is mild generalized cortical atrophy, increased since reference exam. There is mild decreased w calin matter attenuation due to chronic microvascular ischemic change. Normal cerebellum and vermis. Fourth ventricle is midline. Prepontine cisterns are not effaced. Cynthia l sella contents. Intraorbital contents appear normal. Clear paranasal sinuses. Mastoid air cells are clear bilaterally . Intact skull base. CT cervical spine: There is straightening of cervical lordosis. There is no cervical vertebral compression fracture. No subluxation. Moderate hypertrophic endplate changes throughout the cervical spine with uncovertebral joint hypertrophy. This contributes to variable severity bilateral neural foraminal stenosis, most si gnificant bilaterally at C6-7. No fracture within the posterior elements. No prevertebral edema. Normal appearance of the epiglottis and larynx. Parapharyngeal soft tissues and mucosal spaces appear normal. Nonenlarged bilateral neck lymph nodes. Normal thyroid. IMPRESSION: 1. 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 Mild generalized senescent brain changes have incre ased with slight enlargement of the ventricles relative to reference exam. No intracranial acute find ing. 2. Generalized cervical spondylosis. No acute fracture or subluxation. Electronically signed by: Gin Fatima DO 12/29/2019 3:07 AM DRAFTING ENGINEER Due to temporary technical issues with the PACS/Fluency reporting system, reports are being signed by the in house radiologist as a courtesy to ensure prompt reporting. The interpreting radiologist is f ully responsible for the content of the report.
== END 2019-12-29 07:51 | disposition home or self-care (01) ==
LOC: ER 01:13
PROC: 0JQ00ZZ Repair Scalp Subcutaneous Tissue and Fascia, Open Approach (ICD-10-PCS; principal; 2019-12-29)
DX: S01.81XA Laceration without foreign body of other part of head, initial encounter (principal); F10.129 Alcohol abuse with intoxication, unspecified; W01.198A Fall on same level from slipping, tripping and stumbling with subsequent striking against other object, initial encounter; Y93.89 Activity, other specified; Y92.002 Bathroom of unspecified non-institutional (private) residence as the place of occurrence of the external cause; Z23 Encounter for immunization; G40.802 Other epilepsy, not intractable, without status epilepticus
CPT/HCPCS: 36415; 70450; 71045; 72125; 80048; 80076; 80307; 80320; 81003; 83735; 84484; 85025; 85610; 90471; 90714; 93005; 99284

== ENCOUNTER 2020-01-03 22:31 | Emergency (ER) | payer OTHER ==
--- NOTE | 2020-01-03 22:53 | ER ---
Nurse's Notes [facility] Name: Jay Guzman Jr Age: 54 yrs Sex: Male : 1965 Arrival Date: 01/03/2020 Time: 22:34 Bed 11 Private MD: Diagnosis: Encounter for removal of sutures-tavia Presentation: 01/02 22:38 Chief complaint: Patient states: that he just needs to have some tavia removed from fc the back of his head. Were placed 1 week ago after a fall. Coronavirus screen: The patient has NOT traveled to a country currently being monitored by the [facility] within the last 14 days. Proceed with normal triage procedures. The patient has NOT had contact with any known and/or suspected case of coronavirus. Proceed with normal triage procedures. Ebola Screen: Patient negative for fever greater than or equal to 101.5 degrees Fahrenheit, and additional compatible Ebola Virus Disease symptoms Patient denies exposure to infectious person. Patient denies travel to an Ebola-affected area in the 21 days before illness onset. Initial Sepsis Screen:. Initial Sepsis Screen: Does the patient meet any 2 criteria? No. Patient's initial sepsis screen is negative. Does the patient have a suspected source of infection? No. Patient's initial sepsis screen is negative. Risk Assessment: Do you want to hurt yourself or someone else? Patient reports no desire to harm self or others. 22:38 Method Of Arrival: Ambulatory 22:38 Acuity: JOMAR 5 22:55 Onset of symptoms was December 27, 2019. Triage Assessment: 22:44 General: Appears in no apparent distress. comfortable, obese, Behavior is calm, fc cooperative, appropriate for age. Pain: Denies pain. EENT: No deficits noted. Neuro: Level of Consciousness is awake, alert, obeys commands, Oriented to person, place, time, situation, Appropriate for age. Cardiovascular: No deficits noted. Respiratory: No deficits noted. GI: No deficits noted. : No deficits noted. Derm: Skin is pink, warm \T\ dry. Reports 5 tavia to right back scalp. Musculoskeletal: Circulation, motion, and sensation intact. Capillary refill < 3 seconds, Range of motion: intact in all extremities. 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 - Social history:: Smoking status: Patient denies any tobacco usage or history of. Patient uses alcohol, on a daily basis. Patient/guardian denies using street drugs. Screenin:46 Abuse screen: Denies threats or abuse. Nutritional screening: No deficits noted. Tuberculosis screening: No symptoms or risk factors identified. Fall Risk Fall in past 12 months (25 points). Secondary diagnosis (15 points) seizures, No IV (0 pts). Ambulatory Aid- None/Bed Rest/Nurse Assist (0 pts). Gait- Normal/Bed Rest/Wheelchair (0 pts) Mental Status- Overestimates/Forgets Limitations (15 pts.). Total García Fall Scale indicates High Risk Score (45 or more points). Fall prevention measures have been instituted. Side Rails Up X 2 Placed Close to Nursing Station 1:1 Attendant Assigned Frequent Obs/Assessments Occuring Family Present and informed to notify staff if the need to leave the bedside As available patient and family educated on Fall Prevention Program and Strategies. Assessment: 22:45 Reassessment: see triage assessment. 22:54 Reassessment: Nisha LEGAL MEDIATOR in to see and examine pt. Also removed tavia with no problems. Vital Signs: 22:38 BP 128 / 91; Pulse 77; Resp 18; Temp 97.9(O); Pulse Ox 98% on R/A; Weight 81.65 kg (R); fc Height 5 ft. 4 in. (162.56 cm) (R); Pain 0/10; 22:38 Body Mass Index 30.90 (81.65 kg, 162.56 cm) ED Course: 22:34 Patient arrived in ED. jg7 22:41 Triage completed. 22:44 Arm band placed on Patient placed in an exam room. fc 22:46 Patient has correct armband on for positive identification. Call light in reach. fc 22:46 No provider procedures requiring assistance completed. Patient did not have IV access fc during this emergency room visit. 22:49 [facility] snw 22:49 Caesar Allison MD is Attending Physician. snw Administered Medications: No medications were administered Outcome: 22:53 Discharge ordered by . snw 22:55 Discharged to home ambulatory, with family. fc 22:55 Condition: good 22:55 Discharge instructions given to patient, family, Instructed on discharge instructions, follow up and referral plans. Demonstrated understanding of instructions, follow-up care, Prescriptions given X none 22:59 Patient left the ED. fc Signatures: Nisha Perez FNP-C FNP-Sonia Boyd RN RN Melva Vargas jg7
--- NOTE | 2020-01-03 22:53 | EDPHYS ---
Physician Documentation [facility] Name: Jay Guzman Jr Age: 54 yrs Sex: Male : 1965 Arrival Date: 01/03/2020 Time: 22:34 Bed 11 Private MD: Caesar Martinez HPI: 01/02 22:55 This 54 yrs old Male presents to ER via Ambulatory with complaints of Staple snw Removal. 22:55 The patient has tavia on the scalp. Previous treatment: The patient was initially snw treated 10 day(s) ago, the care was rendered at [facility]. Sutures/tavia progress: The patient has no c/o's. The wound is well-healing with no redness, swelling, discharge, or dehiscence reported. The patient has not experienced similar symptoms in the past. It is unknown whether or not the patient has recently seen a physician. 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 - Social history:: Smoking status: Patient denies any tobacco usage or history of. Patient uses alcohol, on a daily basis. Patient/guardian denies using street drugs. ROS: 22:55 Constitutional: Negative for fever, chills, and weight loss, Eyes: Negative for injury, snw pain, redness, and discharge, ENT: Negative for injury, pain, and discharge, Neck: Negative for injury, pain, and swelling, Cardiovascular: Negative for chest pain, palpitations, and edema, Respiratory: Negative for shortness of breath, cough, wheezing, and pleuritic chest pain, Abdomen/GI: Negative for abdominal pain, nausea, vomiting, diarrhea, and constipation, Back: Negative for injury and pain, : Negative for injury, bleeding, discharge, and swelling, MS/Extremity: Negative for injury and deformity, Skin: Negative for injury, rash, and discoloration, Neuro: Negative for headache, weakness, numbness, tingling, and seizure, Psych: Negative for depression, anxiety, suicide ideation, homicidal ideation, and hallucinations. Exam: 22:54 Constitutional: This is a well developed, well nourished patient who is awake, alert, snw and in no acute distress. Eyes: Pupils equal round and reactive to light, extra-ocular motions intact. Lids and lashes normal. Conjunctiva and sclera are non-icteric and not injected. Cornea within normal limits. Periorbital areas with no swelling, redness, or edema. ENT: Nares patent. No nasal discharge, no septal abnormalities noted. Tympanic membranes are normal and external auditory canals are clear. Oropharynx with no redness, swelling, or masses, exudates, or evidence of obstruction, uvula midline. Mucous membranes moist. Neck: Trachea midline, no thyromegaly or masses palpated, and no cervical lymphadenopathy. Supple, full range of motion without nuchal rigidity, or vertebral point tenderness. No Meningismus. Chest/axilla: Normal chest wall appearance and motion. Nontender with no deformity. No lesions are appreciated. Cardiovascular: Regular rate and rhythm with a normal S1 and S2. No gallops, murmurs, or rubs. Normal PMI, no JVD. No pulse deficits. Respiratory: Lungs have equal breath sounds bilaterally, clear to auscultation and percussion. No rales, rhonchi or wheezes noted. No increased work of breathing, no retractions or nasal flaring. Abdomen/GI: Soft, non-tender, with normal bowel sounds. No distension or tympany. No guarding or rebound. No evidence of tenderness throughout. Back: No spinal tenderness. No costovertebral tenderness. Full range of motion. Skin: Warm, dry with normal turgor. Normal color with no rashes, no lesions, and no evidence of cellulitis. MS/ Extremity: Pulses equal, no cyanosis. Neurovascular intact. Full, normal range of motion. Neuro: Awake and alert, GCS 15, oriented to person, place, time, and situation. Cranial nerves II-XII grossly intact. Motor strength 5/5 in all extremities. Sensory grossly intact. Cerebellar exam normal. Normal gait. Psych: Awake, alert, with orientation to person, place and time. Behavior, mood, and affect are within normal limits. 22:54 Head/face: Noted is a laceration(s), of the previously repaired with 5 tavia, intact, no bleeding, of the left parietal area. Vital Signs: 22:38 BP 128 / 91; Pulse 77; Resp 18; Temp 97.9(O); Pulse Ox 98% on R/A; Weight 81.65 kg (R); fc Height 5 ft. 4 in. (162.56 cm) (R); Pain 0/10; 22:38 Body Mass Index 30.90 (81.65 kg, 162.56 cm) fc MDM: 22:53 Patient medically screened. snw 22:56 Data reviewed: vital signs, nurses notes. Counseling: I had a detailed discussion with snw the patient and/or guardian regarding: the historical points, exam findings, and any diagnostic results supporting the discharge/admit diagnosis, the need for outpatient follow up, for definitive care, to return to the emergency department if symptoms worsen or persist or if there are any questions or concerns that arise at home. Special discussion: Based on the history and exam findings, there is no indication for further emergent testing or inpatient evaluation. I discussed with the patient/guardian the need to see the primary care provider for further evaluation of the symptoms. Administered Medications: No medications were administered Disposition: 01/03 07:54 Co-signature as Attending Physician, Caesar Allison MD I agree with the assessment and kika plan of care. Disposition: 01/03/20 22:53 Discharged to Home. Impression: Encounter for removal of sutures - tavia. - Condition is Stable. - Discharge Instructions: Head Injury, Adult, Suture Removal, Care After, Incision Care, Adult. - Medication Reconciliation Form, Thank You Letter, Antibiotic Education, Prescription Opioid Use form. - Follow up: Emergency Department; When: As needed; Reason: Worsening of condition. Follow up: Private Physician; When: 1 - 2 days; Reason: Recheck today's complaints, Continuance of care, Re-evaluation by your physician. Signatures: Caesar Allison MD MD cha Therrien, Shelly, INSOLE LIP TURNER-C INSOLE LIP TURNER-Rajw Chretien, Sonia, RN RN fc Corrections: (The following items were deleted from the chart) 01/02 22:59 22:53 01/03/2020 22:53 Discharged to Home. Impression: Encounter for removal of sutures fc - tavia. Condition is Stable. Forms are Medication Reconciliation Form, Thank You Letter, Antibiotic Education, Prescription Opioid Use. Follow up: Emergency Department; When: As needed; Reason: Worsening of condition. Follow up: Private Physician; When: 1 - 2 days; Reason: Recheck today's complaints, Continuance of care, Re-evaluation by your physician. snw
[2020-01-03 23:22] VITALS: BP 128/91; TEMP 97.9; O2SAT 98
== END 2020-01-03 22:59 | disposition home or self-care (01) ==
LOC: ER 22:31
DX: Z48.02 Encounter for removal of sutures (principal)
CPT/HCPCS: 99282

== ENCOUNTER 2020-10-11 13:22 | Emergency (ER) | payer OTHER ==
[2020-10-11] MEDS ORDERED: ETOMIDATE 20 MG/10 ML VIAL IV ONE (13:23)
[2020-10-11] MEDS ORDERED: SUCCINYLCHOLINE 20 MG/ML (10 ML) IV ONE (13:23)
--- OUTSIDE RECORDS SUMMARY | 2020-10-11 13:25 | XMS REPORT | Continuity of Care Document ---
:1965 Author Organization [facility] Address [address] [place] [address] Dr. Steen [address] [place] [address] Care Team Providers Name Role Phone LELIA Attending Clinician Unavailable LEXIS Attending Clinician Unavailable ROCÍO Attending Clinician Unavailable MEG Attending Clinician Unavailable KAREN Attending Clinician Unavailable JM Attending Clinician Unavailable CYNDIE Attending Clinician Unavailable DOMINIC Attending Clinician Unavailable LEXIS Attending Clinician Unavailable JASON Admitting Clinician Unavailable JM Admitting Clinician Unavailable Problems This patient has no known problems. Allergies, Adverse Reactions, Alerts This patient has no known allergies or adverse reactions. Medications This patient has no known medications. Procedures This patient has no known procedures. Encounters Start End Encounter Admission Attending Care Care Encounter Source Date/Time Date/Time Type Type Clinicians Facility Department ID 2020-09-09 2020-09-09 Outpatient ALONSO ROWELL [facility] [id number] [place] 00:00:00 00:00:[address] 2020-09-03 2020-09-03 Outpatient PIRES JACKELYN [facility] [id number] [place] 00:00:00 00:00:[address] 2020-08-12 2020-08-12 Outpatient ROCÍO [facility] [id number] [place] 00:00:00 00:00:00 NARA [address] 2020-08-07 2020-08-07 Outpatient ALONSO ROWELL [facility] [id number] [place] 00:00:00 00:00:[address] 2020-08-07 2020-08-07 [facility] [id number] [place] 00:00:00 00:00:00 LEVON [address] 2020-08-01 2020-08-01 [facility] [id number] [place] 00:00:00 00:00:00 PHYLLIS [address] 2020-07-21 2020-07-22 Outpatient KLEBUC, [facility] [id number] [place] 00:00:00 00:00:00 LEVON [address] 2020-07-18 2020-07-18 Outpatient KLEBUC, [facility] [id number] [place] 00:00:00 00:00:00 LEVON [address] 2020-07-17 2020-07-17 Outpatient JONES, [facility] [id number] [place] 00:00:00 00:00:00 PHYLLIS [address] 2020-07-15 2020-07-15 Outpatient LELIA, ALONSO [facility] [id number] [place] 00:00:00 00:00:[address] 2020-07-15 2020-07-15 Outpatient KLEBUC, [facility] [id number] [place] 00:00:00 00:00:00 LEVON [address] 2020-07-14 2020-07-14 Outpatient JONES, [facility] [id number] [place] 00:00:00 00:00:00 PHYLLIS [address] 2020-07-08 2020-07-08 Outpatient JM, NADEEN [facility] [id number] [place] 00:00:00 00:00:[address] 2020-06-20 2020-06-20 Outpatient JONES, [facility] [id number] [place] 00:00:00 00:00:00 PHYLLIS [address] 2020-05-22 2020-05-22 Outpatient KLEBUC, [facility] [id number] [place] 00:00:00 00:00:00 LEVON [address] 2020-05-20 2020-05-20 Outpatient LELIA, ALONSO [facility] [id number] [place] 00:00:00 00:00:[address] 2020-05-20 2020-05-20 Outpatient KLEBUC, [facility] [id number] [place] 00:00:00 00:00:00 LEVON [address] 2020-05-19 2020-05-19 Outpatient JONES, [facility] [id number] [place] 00:00:00 00:00:00 PHYLLIS [address] 2020-05-19 2020-05-19 Outpatient JONES, [facility] [id number] [place] 00:00:00 00:00:00 PHYLLIS [address] 2020-05-02 2020-05-02 Outpatient ROBBEN, [facility] [id number] [place] 00:00:00 00:00:00 CECILIA [address] 2020-05-02 2020-05-02 Emergency DOMINIC, [facility] [id number] [place] 00:00:00 00:00:00 GUILLE [address] 2020-04-30 2020-04-30 Outpatient ROCÍO, [facility] [id number] [place] 00:00:00 00:00:00 NARA [address] 2020-03-28 2020-03-28 Outpatient JM, NADEEN [facility] [id number] [place] 00:00:00 00:00:[address] 2020-02-29 2020-02-29 Outpatient KLEBUC, [facility] [id number] [place] 00:00:00 00:00:00 LEVON [address] 2020-02-27 2020-02-27 Outpatient PIRES, JACKELYN [facility] [id number] [place] 00:00:00 00:00:[address] 2020-02-08 2020-02-08 Outpatient LELIA, ALONSO [facility] [id number] [place] 00:00:00 00:00:[address] 2020-02-06 2020-02-06 Outpatient LELIA, ALONSO [facility] [id number] [place] 00:00:00 00:00:[address] 2020-02-05 2020-02-05 Outpatient JM, NADEEN [facility] [id number] [place] 00:00:00 00:00:[address] 2020-01-24 2020-01-24 Outpatient PIRES, JACKELYN [facility] [id number] [place] 00:00:00 00:00:[address] 2020-01-17 2020-01-17 Outpatient JM, NADEEN [facility] [id number] [place] 00:00:00 00:00:[address] 2019-12-15 2019-12-15 Outpatient PIRES, [facility] [id number] [place] 00:00:00 00:00:00 GENNARO [address] 2019-12-07 2019-12-07 Outpatient JM, NADEEN [facility] [id number] [place] 00:00:00 00:00:[address] 2019-10-04 2019-10-08 Inpatient NADEEN ONEAL [facility] [id number] [place] 00:00:00 00:00:[address] 2019-10-03 2019-10-03 Outpatient NADEEN ONEAL [facility] [id number] [place] 00:00:00 00:00:[address] 2019-07-27 2019-07-27 Outpatient KAREN [facility] [id number] [place] 00:00:00 00:00:00 PHYLLIS [address] 2019-07-27 2019-07-27 Outpatient KAREN [facility] [id number] [place] 00:00:00 00:00:00 PHYLLIS [address] 2019-07-27 2019-07-27 Outpatient KAREN [facility] [id number] [place] 00:00:00 00:00:00 PHYLLIS [address] 2019-07-20 2019-07-20 Outpatient JACKELYN PIRES [facility] [id number] [place] 00:00:00 00:00:[address] 2019-07-20 2019-07-20 Outpatient JACKELYN PIRES [facility] [id number] [place] 00:00:00 00:00:[address] 2019-07-13 2019-07-13 Outpatient JACKELYN PIRES [facility] [id number] [place] 00:00:00 00:00:[address] Results This patient has no known results.
[2020-10-11] MEDS ORDERED: RSI MEDICATION KIT IV ONE (13:28)
[2020-10-11 13:41] LABS: Absolute Lymphocytes (CBC) 2.8 K/uL (0.7-4.9); Basophils % 0.4 % (0-1.3); Hematocrit 47.8 % (39.6-49.0); Lymphocytes % 17.9 % (15.3-44.8); MPV 7.9 fL (7.6-11.3); RBC Red Blood Cell Count 5.25 M/uL (4.33-5.43)
[2020-10-11] MEDS ORDERED: levETIRAcetam 1,000 MG in NA CHLORIDE 0.9% 100 ML IV ONE (13:45)
[2020-10-11 13:47] LABS: Protime INR 1.5
[2020-10-11] MEDS ORDERED: NA CHLORIDE 0.9% 1,000 ML ONE (13:47)
[2020-10-11 13:57] LABS: BUN Blood Urea Nitrogen 8 mg/dL (7-18); Bicarbonate 25 mmol/L (21-32); Creatine Phosphokinase 140 U/L (39-308); Glucose Level 297 mg/dL (74-106); Magnesium 2.6 mg/dL (1.8-2.4); Potassium 3.5 mmol/L (3.5-5.1); Sodium Level 131 mmol/L (136-145); Troponin (Emerg Dept Use Only) < 0.02 ng/mL (0.0-0.045)
--- NOTE | 2020-10-11 14:18 | RAD REPORT ---
EXAM DESCRIPTION: RAD - Chest Single View - 10/11/2020 1:45 pm CLINICAL HISTORY: seizure COMPARISON: Portable December 2019 TECHNIQUE: AP portable chest image was obtained 10/11/2020 1:45 pm . FINDINGS: Lung volumes are very low accentuating heart, vasculature and lung markings. No peripheral mass or consolidation. Mediastinum is widened by the low lung volume and semi-upright portable techn ique. Mild failure or volume overload could be masked. Heart size is magnified by the shallow inspira tion and portable technique. No measurable pleural effusion and no pneumothorax. No acute bony abnorm ality seen. No acute aortic findings suspected. IMPRESSION: No acute cardiopulmonary process. Exam limitations could mask early edema or infiltrate.
--- NOTE | 2020-10-11 14:19 | RAD REPORT ---
EXAM DESCRIPTION: CT - Head Brain Wo Cont - 10/11/2020 1:51 pm CLINICAL HISTORY: SEIZURE COMPARISON: Head Brain Wo Cont dated 08/29/2018 TECHNIQUE: Axial 5 mm thick images of the head were obtained without IV contrast. All CT scans are performed using dose optimization technique as appropriate and may include automated exposure control or mA/KV adjustment according to patient size. FINDINGS: No intracranial hemorrhage, mass, edema or shift of mid-line structures. No acute cortical based infarction. No cortical edema or sulcal effacement. DISINTEGRATOR OPERATOR shunt tube is in place. Tube enters the right parietal bone and extends across the midline with the tip in the left frontal lobe parenchyma. No abnormal extra-axial fluid collections. Ventricles are decompressed. Mastoid air cells and visualized portions of the paranasal sinuses are clear. No acute bony findings. IMPRESSION: Negative non-contrast CT head examination for acute finding. No significant change from August 2018.
[2020-10-11] MEDS ORDERED: propofoL 1,000 MG/100 ML VIAL IV ONE ×2 (14:31→18:11)
[2020-10-11] MEDS ORDERED: MIDAZOLAM HCL 2 MG/2 ML INJ ONE ×2 (14:31→16:51)
[2020-10-11] MEDS ORDERED: CEFEPIME/SWI 1gm 10 ML ONE (14:52)
[2020-10-11] MEDS ORDERED: VANCOMYCIN/NS 1 gm 1 GM/250 ML BAG IVPB ONE (15:00)
--- NOTE | 2020-10-11 15:07 | RAD REPORT ---
EXAM DESCRIPTION: RAD - Chest Single View - 10/11/2020 2:40 pm CLINICAL HISTORY: post intubation, respiratory distress COMPARISON: October 11 TECHNIQUE: AP portable chest image was obtained 10/11/2020 2:40 pm . FINDINGS: Endotracheal tube has been placed. Tip is mid aortic arch level 2-3 cm above the fercho. N G tube is in place curled in the stomach. Tip is in the right upper quadrant extending off the field of view. Lung volumes remain low. No new or progressive infiltrate or edema pattern. Cardiomediastinal silhoue tte is decreased slightly in prominence. No pneumothorax or pleural effusion. IMPRESSION: ET tube in good position. NG tube in good position. Heart, vasculature and lung markings have decreased in prominence.
[2020-10-11 15:23] LABS: Urine Amorphous Sediment 4+ /HPF (NONE SEEN); Urine Bacteria <20 /HPF (NONE SEEN)
[2020-10-11 15:25] LABS: Urine Blood 2+ (NEG); Urine Glucose 3+ (NEG); Urine Protein 3+ (NEG)
[2020-10-11 15:46] LABS: Arterial Blood Carboxyhemoglob 0.8 % (0-1.5); Blood Gas Oxyhemoglobin 97.7 % (94-97); Blood O2 Saturation 99.3 % (92-98.5)
--- NOTE | 2020-10-11 15:54 | ER ---
Nurse's Notes [facility] Name: Jay Guzman Jr Age: 55 yrs Sex: Male : 1965 Arrival Date: 10/11/2020 Time: 13:26 Bed 3 Private MD: Diagnosis: Altered mental status, unspecified;Possible Seizure;Fever, unspecified Presentation: 10/11 13:21 Chief complaint: Patient states: called out for seizure, pt found in his restroom on sv the ground with snoring respirations, no response to painful stimuli. Ativan 2mg given. Initial BP 200/100 with unequal pupils, after Ativan given BP down to 150/80 with equal pupils. BS-220, last seizure was a year ago. Spouse reported that he's been feeling sick the last few days. Coronavirus screen: At this time, unable to obtain information related to travel outside the [place] Ebola Screen: Unable to complete the Ebola screening because: Patient is unresponsive. Initial Sepsis Screen: Does the patient meet any 2 criteria? RR > 20 per min. HR > 90 bpm. Does the patient have a suspected source of infection? No. Patient's initial sepsis screen is negative. Risk Assessment: Do you want to hurt yourself or someone else? Unable to obtain. Onset of symptoms was October 11, 2020. 13:21 Method Of Arrival: EMS: [facility] 13:29 Ebola Screen: No symptoms or risks identified at this time. Initial Sepsis Screen: Does ph the patient meet any 2 criteria?. Initial Sepsis Screen: Does the patient meet any 2 criteria? HR > 90 bpm. Does the patient have a suspected source of infection? No. Patient's initial sepsis screen is negative. Risk Assessment: Do you want to hurt yourself or someone else? Unable to obtain. Onset of symptoms was October 11, 2020. 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 - Social history:: Smoking status: unknown. - History obtained from: EMS. Screenin:40 Abuse screen: Denies threats or abuse. Denies injuries from another. Nutritional ph screening: No deficits noted. Tuberculosis screening: No symptoms or risk factors identified. Fall Risk Fall in past 12 months (25 points). Secondary diagnosis (15 points) seizures, IV access (20 points). Ambulatory Aid- None/Bed Rest/Nurse Assist (0 pts). Gait- Impaired (20 pts.). Mental Status- Overestimates/Forgets Limitations (15 pts.). Total García Fall Scale indicates High Risk Score (45 or more points). Fall prevention measures have been instituted. Side Rails Up X 2 Frequent Obs/Assessments Occuring As available patient and family educated on Fall Prevention Program and Strategies. 13:40 Abuse screen: Denies threats or abuse. Nutritional screening: No deficits noted. tw2 Tuberculosis screening: No symptoms or risk factors identified. Fall Risk None identified. Assessment: 13:41 General: Behavior is unresponsive. Pain: Unable to use pain scale. Patient is ph unresponsive. Neuro: Level of Consciousness is unresponsive, Oriented to none Pupils are non-reactive. Cardiovascular: Capillary refill < 3 seconds in bilateral fingers. 13:41 Respiratory: Airway is patent Respiratory effort is labored, Respiratory pattern is ph snoring. GI: Abdomen is round non-distended. Derm: Skin is intact, Skin is clammy, Skin is normal, Skin temperature is cool. Musculoskeletal:. 14:02 Reassessment: Dr Cowart at bedside to speak w/ family about intubating pt. ph 14:44 Reassessment: Patient appears in no apparent distress at this time. Patient and/or ph family updated on plan of care and expected duration. Pain level reassessed. Pt intubated and sedated, VS improving, awaiting lab and radiology results. 15:35 Reassessment: Patient appears in no apparent distress at this time. No changes from previously documented assessment. Awaiting acceptance at facility. 17:49 Reassessment: Report called to Christina MEEHAN at [facility]. ph 18:15 Reassessment: Patient appears in no apparent distress at this time. Patient and/or ph family updated on plan of care and expected duration. Pain level reassessed. [facility] at bedside, report given to water treatment plant mechanic, pt transferred to [facility]. Vital Signs: 13:25 BP 211 / 130; Pulse 146; Resp 30; Pulse Ox 99% on 15% Non-rebreather mask; sv 13:29 BP 211 / 130; Pulse 145; Resp 24; Pulse Ox 100% on Non-rebreather mask; ph 13:59 BP 216 / 125; Pulse 144; Resp 22; Temp 99.3; Pulse Ox 100% on Non-rebreather mask; ph 14:27 Weight 79.38 kg; ph 14:42 BP 141 / 98; Pulse 125; Resp 24; Temp 98.1; Pulse Ox 99% on 75% FiO2 ETT vent; ph 15:33 BP 153 / 109; Pulse 128; Resp 22; Temp 97.8(C); Pulse Ox 100% on 60% FiO2 ETT vent; ph 16:00 BP 125 / 95; Pulse 126; Resp 23; Temp 98.2(C); Pulse Ox 100% on ETT vent; tw2 16:15 BP 156 / 99; Pulse 126; Resp 24; Pulse Ox 100% on ETT vent; tw2 16:30 BP 151 / 109; Pulse 134; Resp 29; Pulse Ox 100% on ETT vent; tw2 16:45 BP 139 / 93; Pulse 122; Resp 24; Pulse Ox 100% on ETT vent; tw2 17:12 BP 141 / 93; Pulse 123; Resp 20; Temp 98.7(C); Pulse Ox 100% on 60% FiO2 ETT vent; ph 18:20 BP 143 / 97; Pulse 124; Resp 20; Temp 98.7(C); Pulse Ox 100% on 60% FiO2 ETT vent; ph Entriken Coma Score: 15:14 Eye Response: to pain(2). Verbal Response: none(1). Motor Response: withdraws from rn pain(4). Total: 7. ED Course: 13:21 Inserted saline lock: 18 gauge in right antecubital area, using aseptic technique. sv ,using aseptic technique. done by BONNY RN Blood collected. Maintain EMS IV. Dressing intact. Site clean \T\ dry. Gauge \T\ site: 20G L AC. 13:24 Placed nasal trumpet 32 Fr via right nare. sv 13:26 Patient arrived in ED. rn 13:26 Lucio Cowart MD is Attending Physician. rn 13:26 Placed in gown. Side rails up X2. quality assurance monitor final on. Pulse ox on. NIBP on. Warm tw2 blanket given. 13:27 EKG done, by ED staff, reviewed by Lucio Cowart MD. dh3 13:28 Barbara Simmons, RN is Primary Nurse. ph 13:30 Triage completed. ph 13:33 Arm band placed on. sv 13:39 Ellis cath inserted, using sterile technique, 16 Fr., by me, balloon inflated, to ph gravity drainage, urine specimen collected. returned clear yellow urine. Patient tolerated well. 13:40 Patient has correct armband on for positive identification. Placed in gown. Bed in low ph position. Side rails up X2. Seizure precautions initiated. quality assurance monitor final on. Pulse ox on. NIBP on. Warm blanket given. 13:[address] with mortuary technician and BONNYRN at this time. tw2 13:46 XRAY Chest (1 view) In Process Unspecified. EDMS 13:52 CT Head Brain wo Cont In Process Unspecified. EDMS 14:14 Assisted provider with intubation using 7.5 mm ETT via oral route. ET tube secured at ll1 23cm at the teeth. Set up intubation tray. Intubated by Lucio Cowart MD Placement verified by CO2 detector w/ + color change, auscultating bilateral breath sounds, Patient tolerated well. 16 f OG inserted, placed to intermittent suction, verified by auscultation and return of gastric contents. 14:40 XRAY Chest (1 view) In Process Unspecified. EDMS 14:40 Second set of blood cultures drawn by dc. Inserted saline lock: 20 gauge in right hand, dh3 using aseptic technique. Blood collected. 15:12 attempted to initiate a transfer with Melissa from the [facility]/ At this time they are at capacity and are having to decline the patient in transfer. 15:14 Urine Dipstick--Ancillary (enter results) Sent. sv 15:17 initiated a transfer with Chloe Herman Rn from the [facility]. eb 15:[address] Morro Haley's answering service at [phone]/ cloth bleaching range operator chief will page the on eb call who will call us back. 15:[address] Hernandez the neurologist technical solution architect for [facility] with Dr. Cowart for patient eb transfer consultation. 15:[address] Gale the neurologist technical solution architect for Dr. Shin with Dr. Cowart for patient eb consultation. 16:09 administrative approval given by Bimal Snow from the [facility]/ eb patient has been accepted to [facility] pending a bed/ once they receive a fax of the patient's face sheet she will call me back/ Mian Jacob has accepted the patient in transfer/. 16:45 patient going to [facility] [address] [facility]. eb 18:29 Patient transferred, IV remains in place. ph Restraints: 14:30 Non-Violent Restraint: Order obtained. Initiated on October 11, 2020 at 14:30 Unable ph to provide Restraint education. pt intubated/sedated. Clinical justification for use: airway protection, line protection, Mental status: subdued, Cognition: unable to follow commands, Circulation: Within defined parameters (based on Cardiovascular assessment) Skin integrity: Within defined parameters (based on Integumentary assessment) Signs of injury related to restraint: No injuries noted. Range of Motion (ROM): patient asleep. Elimination/Hygiene: with urinary catheter. 16:30 Non-Violent Restraint: Clinical justification for use: airway protection, line ph protection, Mental status: subdued, Cognition: Circulation: Within defined parameters (based on Cardiovascular assessment) Skin integrity: Within defined parameters (based on Integumentary assessment) Signs of injury related to restraint: No injuries noted. Range of Motion (ROM): patient asleep. Elimination/Hygiene: with urinary catheter, Restraint status: Soft wrist restraint (Right) Soft wrist restraint (Left) Criteria to discontinue Restraint not met. Restraint continued. Administered Medications: 13:39 Drug: NS 0.9% 1000 ml Route: IV; Rate: 1000 ml; Site: right antecubital; tw2 15:43 Follow up: Response: No adverse reaction; IV Status: Completed infusion; IV Intake: ph 1000ml 13:58 Drug: Keppra 1000 mg Route: IV; Rate: calculated rate; Site: right antecubital; ph 14:15 Follow up: Response: No adverse reaction; IV Status: Completed infusion; IV Intake: ph 100ml 14:12 Drug: Etomidate 20 mg Route: IVP; Site: right antecubital; ll1 14:30 Follow up: Response: No adverse reaction; Patient is sedated ph 14:12 Drug: Succinylcholine 100 mg Route: IVP; Site: right antecubital; ll1 14:30 Follow up: Response: No adverse reaction; Patient is sedated ph 14:23 Drug: Versed 4 mg Route: IVP; Site: right antecubital; ph 15:41 Follow up: Response: No adverse reaction ph 14:30 Drug: Propofol 5 mcg/kg/min Route: IV; Rate: calculated rate; Site: right antecubital; ph 18:15 Follow up: Response: No adverse reaction; Patient is sedated; IV Status: Infusion ph continued upon transfer 14:38 Drug: Propofol 60 mg Route: IVP; Site: right antecubital; ph 15:00 Follow up: Response: No adverse reaction; Patient is sedated ph 14:42 Drug: Cefepime 1 grams Route: IVPB; Rate: 200 ml/hr; Infused Over: 30 mins; Site: right ph hand; 15:15 Follow up: Response: No adverse reaction; IV Status: Completed infusion; IV Intake: ph 100ml 14:52 Drug: vancoMYCIN 1 grams Route: IVPB; Infused Over: 2 hrs; Site: right antecubital; ph 17:00 Follow up: Response: No adverse reaction; IV Status: Completed infusion ph 16:43 Drug: Versed 3 mg Route: IVP; Site: right hand; ph 18:25 Follow up: Response: No adverse reaction ph 16:43 Drug: Dilaudid 1 mg Route: IVP; Site: right hand; ph 18:25 Follow up: Response: No adverse reaction ph Intake: 14:15 IV: 100ml; Total: 100ml. ph 15:15 IV: 100ml; Total: 200ml. ph 15:43 IV: 1000ml; Total: 1200ml. ph Outcome: 15:53 ER care complete, transfer ordered by . rn 18:29 [facility]red by [facility] to [facility], Transfer form ph completed. X-rays sent w/ patient. 18:29 Condition: stable 18:29 Instructed on the need for transfer. 18:29 Patient left the ED. ph Addendum: 10/15/2020 09:22 Addendum: Culture Results: Positive sputum culture. Results faxed to [facility] where pt was transferred. Signatures: Dispatcher [employer] Elaina Jones RN RN sv Nieto, Roman, MD MD rn Simmons, Barbara, RN RN Linda Landis, RN RN 2 Latasha Wood [facility] Danna Shin Lynsay RN RN ll1 Corrections: (The following items were deleted from the chart) 10/11 14:01 13:41 Neuro: Level of Consciousness is unresponsive, Oriented to none ph ph 14:05 13:24 Placed nasal trumpet 30 Fr via right nare. sv sv 14:29 13:21 Acuity: JOMAR 2 sv ph 15:16 15:14 attempted to initiate a transfer with Melissa from the [facility]/ At this time they are at capacity and are having to decline the patient in transfer, eb 15:48 15:33 BP 153 / 109; Pulse 128bpm; Resp 22bpm; Pulse Ox 100% FiO2 75% vent; Temp 97.8F ph Catheter; ph 16:14 15:[address] Reynolds the neurologist technical solution architect for Dr. Shin with Dr. Cowart for eb patient consultation. eb
--- NOTE | 2020-10-11 15:54 | EDPHYS ---
Physician Documentation [facility] Name: Jay Guzman Jr Age: 55 yrs Sex: Male : 1965 Arrival Date: 10/11/2020 Time: 13:26 Bed 3 Private MD: ED Physician Lucio Cowart HPI: 10/11 13:30 This 55 yrs old Male presents to ER via EMS with complaints of Seizure. rn 13:30 The patient presents after having a single isolated seizure. Character of seizure(s): rn Loss of consciousness: it is not known if the patient experienced loss of consciousness, Motor activity: generalized, Apnea: the patient did not experience apnea, Circulation: the patient did not experience evidence of pulse disturbance. Seizure onset: just prior to arrival. Associated injury: The patient did not suffer any apparent associated injury. Current symptoms: decreased level of consciousness. The patient has experienced similar episodes in the past. 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 . 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 - Social history:: Smoking status: unknown. - History obtained from: EMS. ROS: 13:30 Unable to obtain ROS due to altered mental status. rn Exam: 13:30 Constitutional: This is a well developed, well nourished patient, somnolent, grimaces rn to nasal trumpet placement Head/Face: Normocephalic, atraumatic. Eyes: Pupils equal round and reactive to light ENT: no stridor Cardiovascular: Tachycardic, regular Respiratory: + snoring respirations Abdomen/GI: soft, non-distended Skin: Warm, dry MS/ Extremity: Pulses equal, no cyanosis. Neuro: Somnolent, grimaces to painful stimuli Vital Signs: 13:25 BP 211 / 130; Pulse 146; Resp 30; Pulse Ox 99% on 15% Non-rebreather mask; sv 13:29 BP 211 / 130; Pulse 145; Resp 24; Pulse Ox 100% on Non-rebreather mask; ph 13:59 BP 216 / 125; Pulse 144; Resp 22; Temp 99.3; Pulse Ox 100% on Non-rebreather mask; ph 14:27 Weight 79.38 kg; ph 14:42 BP 141 / 98; Pulse 125; Resp 24; Temp 98.1; Pulse Ox 99% on 75% FiO2 ETT vent; ph 15:33 BP 153 / 109; Pulse 128; Resp 22; Temp 97.8(C); Pulse Ox 100% on 60% FiO2 ETT vent; ph 16:00 BP 125 / 95; Pulse 126; Resp 23; Temp 98.2(C); Pulse Ox 100% on ETT vent; tw2 16:15 BP 156 / 99; Pulse 126; Resp 24; Pulse Ox 100% on ETT vent; tw2 16:30 BP 151 / 109; Pulse 134; Resp 29; Pulse Ox 100% on ETT vent; tw2 16:45 BP 139 / 93; Pulse 122; Resp 24; Pulse Ox 100% on ETT vent; tw2 17:12 BP 141 / 93; Pulse 123; Resp 20; Temp 98.7(C); Pulse Ox 100% on 60% FiO2 ETT vent; ph 18:20 BP 143 / 97; Pulse 124; Resp 20; Temp 98.7(C); Pulse Ox 100% on 60% FiO2 ETT vent; ph Marleny Coma Score: 15:14 Eye Response: to pain(2). Verbal Response: none(1). Motor Response: withdraws from rn pain(4). Total: 7. Procedures: 14:16 Intubation: Ventilated with 100% NRB prior to procedure. 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 Intubated orally using # 3 Steve blade with 7.5 mm ETT. was successful on first attempt. Cricoid pressure applied during procedure. Tube secured with ETT curry at right side of mouth measured 23 cm at teeth. Placement verified by CXR, CO2 detector with (+) color change, auscultating bilateral breath sounds, O2 saturation after procedure was 98 %. Patient tolerated well. MDM: 13:26 Patient medically screened. rn 13:59 ED course: states patient reported headache worse over last week, went to use rn bathroom, gone for about 20-30 min, checked on him after heard a thump, thinks fell, found on ground next to door with sonorous respirations. . 14:16 ED course: Pt continued to have sonorous respirations, decision made to intubate for rn airway protection and further studies. Intubated after discussion with family. . 15:48 Differential diagnosis: seizure, dehydration, seizure, hydrocephalus, viral syndrome, rn COVID, FLU, UTI. Data reviewed: vital signs, nurses notes, lab test result(s), EKG, radiologic studies, CT scan, plain films, and as a result, I will admit patient. Counseling: I had a detailed discussion with the patient and/or guardian regarding: the historical points, exam findings, and any diagnostic results supporting the discharge/admit diagnosis, lab results, radiology results, the need to transfer to another facility, for higher level of care, [facility] does not immediately have the required specialist. Response to treatment: the patient's symptoms have mildly improved after treatment, and as a result, I will admit patient. 15:48 ED course: Attempted transfer to [facility] given all his doctors there and rn request, no ICU beds, so patient transferred to [facility]. . 16:14 ED course: Paged Dr. Shin from [facility] given hx of patient, told they rn would check for bed availability, just called back, accepted at [facility] pending bed availability. Spoke with Neuro Rn [facility] \T\ [id number].. 10/11 13:27 Order name: Basic Metabolic Panel; Complete Time: 14:00 rn 10/11 13:27 Order name: CBC with Diff; Complete Time: 13:54 rn 10/11 13:27 Order name: CPK; Complete Time: 14:00 rn 10/11 13:27 Order name: Magnesium; Complete Time: 14:00 rn 10/11 13:27 Order name: Protime (+inr); Complete Time: 13:54 rn 10/11 13:27 Order name: Ptt, Activated; Complete Time: 13:54 rn 10/11 13:27 Order name: Troponin (emerg Dept Use Only); Complete Time: 14:00 rn 10/11 13:29 Order name: ETOH Level; Complete Time: 13:54 rn 10/11 13:41 Order name: Glucose, Ancillary Testing; Complete Time: 13:54 EDWI 10/11 14:19 Order name: Flu; Complete Time: 16:11 rn 10/11 14:19 Order name: Lactate; Complete Time: 15:27 rn 10/11 14:19 Order name: Blood Culture Adult (2) 10/11 14:20 Order name: Urine Microscopic Only; Complete Time: 15:27 rn 10/11 13:27 Order name: CT Head Brain wo Cont; Complete Time: 14:27 rn 10/11 13:28 Order name: XRAY Chest (1 view); Complete Time: 14:19 rn 10/11 14:19 Order name: XRAY Chest (1 view); Complete Time: 15:10 rn 10/11 14:20 Order name: Urine Culture 10/11 14:28 Order name: Sputum Culture 10/11 14:49 Order name: Urine Dipstick--Ancillary (enter results) 10/11 14:50 Order name: Urine Dipstick-Ancillary; Complete Time: 15:27 EDWI 10/11 15:35 Order name: ABG; Complete Time: 16:11 rn 10/11 16:11 Order name: SARS-COV-2 RT PCR [facility] 10/11 17:25 Order name: Glucose, Ancillary Testing [facility] 10/11 13:27 Order name: EKG; Complete Time: 13:27 10/11 13:27 Order name: Cardiac monitoring; Complete Time: 13:28 10/11 13:27 Order name: EKG - Nurse/Tech; Complete Time: 13:28 rn 10/11 13:27 Order name: IV Saline Lock; Complete Time: 13:28 rn 10/11 13:27 Order name: Labs collected and sent; Complete Time: 13:28 rn 10/11 13:27 Order name: NPO; Complete Time: 13:28 rn 10/11 13:27 Order name: O2 Per Protocol; Complete Time: 13:28 rn 10/11 13:27 Order name: O2 Sat Monitoring; Complete Time: 13:29 rn 10/11 13:27 Order name: Urine Dipstick-Ancillary (obtain specimen); Complete Time: 15:14 rn 10/11 13:28 Order name: Glucose Level; Complete Time: 13:30 rn 10/11 14:35 Order name: Restraint:Non-Violent; Complete Time: 14:36 ll1 Administered Medications: 13:39 Drug: NS 0.9% 1000 ml Route: IV; Rate: 1000 ml; Site: right antecubital; tw2 15:43 Follow up: Response: No adverse reaction; IV Status: Completed infusion; IV Intake: ph 1000ml 13:58 Drug: Keppra 1000 mg Route: IV; Rate: calculated rate; Site: right antecubital; ph 14:15 Follow up: Response: No adverse reaction; IV Status: Completed infusion; IV Intake: ph 100ml 14:12 Drug: Etomidate 20 mg Route: IVP; Site: right antecubital; ll1 14:30 Follow up: Response: No adverse reaction; Patient is sedated ph 14:12 Drug: Succinylcholine 100 mg Route: IVP; Site: right antecubital; 1 14:30 Follow up: Response: No adverse reaction; Patient is sedated ph 14:23 Drug: Versed 4 mg Route: IVP; Site: right antecubital; ph 15:41 Follow up: Response: No adverse reaction ph 14:30 Drug: Propofol 5 mcg/kg/min Route: IV; Rate: calculated rate; Site: right antecubital; ph 18:15 Follow up: Response: No adverse reaction; Patient is sedated; IV Status: Infusion ph continued upon transfer 14:38 Drug: Propofol 60 mg Route: IVP; Site: right antecubital; ph 15:00 Follow up: Response: No adverse reaction; Patient is sedated ph 14:42 Drug: Cefepime 1 grams Route: IVPB; Rate: 200 ml/hr; Infused Over: 30 mins; Site: right ph hand; 15:15 Follow up: Response: No adverse reaction; IV Status: Completed infusion; IV Intake: ph 100ml 14:52 Drug: vancoMYCIN 1 grams Route: IVPB; Infused Over: 2 hrs; Site: right antecubital; ph 17:00 Follow up: Response: No adverse reaction; IV Status: Completed infusion ph 16:43 Drug: Versed 3 mg Route: IVP; Site: right hand; ph 18:25 Follow up: Response: No adverse reaction ph 16:43 Drug: Dilaudid 1 mg Route: IVP; Site: right hand; ph 18:25 Follow up: Response: No adverse reaction ph Disposition: 12/19/20 15:53 Transfer ordered to [facility]. Diagnosis are Altered mental status, unspecified, Possible Seizure, Fever, unspecified. - Reason for transfer: Higher level of care. - Accepting physician is Dr. Hernandez. - Condition is Stable. - Problem is new. - Symptoms have improved. Critical care time excluding procedures: 15:48 Critical care time: Bedside Care: 25 minutes, Consultation: 5 minutes, Family rn Intervention: 5 minutes. Total time: 35 minutes Signatures: Dispatcher [employer] EDWI Elaina Dyson, RN RN Lucio Salcido MD MD rn Hall, Patricia RN SHEFALI Boby, Linda, RN RN tw2 Arslan Velasquez, RN RN ll1 Corrections: (The following items were deleted from the chart) 15:15 14:20 CORONAVIRUS+MR.LAB.BRZ ordered. [facility] 18:29 15:53 10/11/2020 15:53 Transfer ordered to [facility]. Diagnosis is Altered ph mental status, unspecified; Possible Seizure; Fever, unspecified. Reason for transfer: Higher level of care. Accepting physician is Dr. Henrandez. Condition is Stable. Problem is new. Symptoms have improved. rn
[2020-10-11] MEDS ORDERED: HYDROMORPHONE HCL 1 MG/ML INJ ONE (16:51)
--- NOTE | 2020-10-13 07:37 | EKG ---
Test Date: 2020-10-11 Test Time: 13:27:37 Management Liaison: UCHE MEASUREMENT RESULTS: Intervals: Rate: 147 PA: 130 QRSD: 84 QT: 354 QTc: 554 [place]: P: 38 PA: 130 QRS: 12 T: 22 INTERPRETIVE STATEMENTS: Sinus tachycardia Cannot rule out Inferior infarct, age undetermined Abnormal ECG Compared to ECG 12/29/2019 02:05:15 Myocardial infarct finding now present Sinus rhythm no longer present Electronically Signed On 10-13-20 07:34:40 BANKING REPRESENTATIVE by Richmond Orta
[2020-10-14 01:08] VITALS: O2SAT 100
[2020-10-14 01:19] VITALS: TEMP 98.7
[2020-10-14 01:21] VITALS: BP 143/97
== END 2020-10-11 18:29 | disposition short-term general hospital (02) ==
LOC: ER 13:22
PROC: 0BH17EZ Insertion of Endotracheal Airway into Trachea, Via Natural or Artificial Opening (ICD-10-PCS; principal; 2020-10-11)
DX: R50.9 Fever, unspecified (principal); Z20.828 Contact with and (suspected) exposure to other viral communicable diseases; R56.9 Unspecified convulsions; Z98.2 Presence of cerebrospinal fluid drainage device
CPT/HCPCS: 93005; 87040 ×2; 87088; 87070; 85025; 87086; 80048; 36415; 80320; 83735; 82550; 87205; 85610; 82947 ×2; 83605; 85730; 87077; 87186; 84484; 87804 ×2; 70450; 71045 ×2; 94002; 82805; 94003; U0003; J0330; J2704 ×2; J2250 ×2; J1953; J1170; J3370; J0692; J7030; 31500; 51702; 81003; 81015; 99291; 99292

== ENCOUNTER 2020-10-26 03:40 | Emergency (ER) | payer OTHER ==
--- OUTSIDE RECORDS SUMMARY | 2020-10-26 03:43 | XMS REPORT | Continuity of Care Document ---
:1965 Author Organization [facility] t Address [address] [place] [address] [address]. [address] [place] [address] Care Team Providers Name Role Phone LEATHA Attending Clinician Unavailable LELIA Attending Clinician Unavailable LEXIS Attending Clinician Unavailable ROCÍO Attending Clinician Unavailable MEG Attending Clinician Unavailable KAREN Attending Clinician Unavailable JM Attending Clinician Unavailable CYNDIE Attending Clinician Unavailable DOMINIC Attending Clinician Unavailable LEXIS Attending Clinician Unavailable WILY Admitting Clinician Unavailable MEG Admitting Clinician Unavailable JM Admitting Clinician Unavailable Problems This patient has no known problems. Allergies, Adverse Reactions, Alerts This patient has no known allergies or adverse reactions. Medications This patient has no known medications. Procedures This patient has no known procedures. Encounters Start End Encounter Admission Attending Care Care Encounter Source Date/Time Date/Time Type Type Clinicians Facility Department ID 2020-10-11 2020-10-[address] [facility] [id number] [place] 00:00:00 00:00:[address] 2020-09-09 2020-09-09 Outpatient LELIA ALONSO [facility] [id number] [place] 00:00:00 00:00:[address] 2020-09-03 2020-09-03 Outpatient JACKELYN PIRES [facility] [id number] [place] 00:00:00 00:00:[address] 2020-08-12 2020-08-12 Outpatient ROCÍO [facility] [id number] [place] 00:00:00 00:00:00 NARA [address] 2020-08-07 2020-08-07 Outpatient ALONSO ROWELL [facility] [id number] [place] 00:00:00 00:00:[address] 2020-08-07 2020-08-07 Outpatient MEG, [facility] [id number] [place] 00:00:00 00:00:00 LEVON [address] 2020-08-01 2020-08-01 Outpatient JONES, [facility] [id number] [place] 00:00:00 00:00:00 PHYLLIS [address] 2020-07-21 2020-07-22 Outpatient KLEBUC, [facility] [id number] [place] 00:00:00 00:00:00 LEVON [address] 2020-07-18 2020-07-18 Outpatient KLEBUC, [facility] [id number] [place] 00:00:00 00:00:00 LEVON [address] 2020-07-17 2020-07-17 Outpatient JONES, [facility] [id number] [place] 00:00:00 00:00:00 PHYLLIS [address] 2020-07-15 2020-07-15 Outpatient LELIA, ALONSO [facility] [id number] [place] 00:00:00 00:00:[address] 2020-07-15 2020-07-15 Outpatient KLEBUC, [facility] [id number] [place] 00:00:00 00:00:00 LEVON [address] 2020-07-14 2020-07-14 Outpatient JONES, [facility] [id number] [place] 00:00:00 00:00:00 PHYLLIS [address] 2020-07-08 2020-07-08 Outpatient JM, NADEEN [facility] [id number] [place] 00:00:00 00:00:[address] 2020-06-20 2020-06-20 Outpatient JONES, [facility] [id number] [place] 00:00:00 00:00:00 PHYLLIS [address] 2020-05-22 2020-05-22 Outpatient KLEBUC, [facility] [id number] [place] 00:00:00 00:00:00 LEVON [address] 2020-05-20 2020-05-20 Outpatient LELIA, ALONSO [facility] [id number] [place] 00:00:00 00:00:[address] 2020-05-20 2020-05-20 Outpatient KLEBUC, [facility] [id number] [place] 00:00:00 00:00:00 LEVON [address] 2020-05-19 2020-05-19 Outpatient JONES, [facility] [id number] [place] 00:00:00 00:00:00 PHYLLIS [address] 2020-05-19 2020-05-19 Outpatient JONES, [facility] [id number] [place] 00:00:00 00:00:00 PHYLLIS [address] 2020-05-02 2020-05-02 Outpatient CYNDIE, [facility] [id number] [place] 00:00:00 00:00:00 CECILIA [address] 2020-05-02 2020-05-02 Emergency DOMINIC, [facility] [id number] [place] 00:00:00 00:00:00 GUILLE [address] 2020-04-30 2020-04-30 Outpatient ALFORD, [facility] [id number] [place] 00:00:00 00:00:00 NARA [address] 2020-03-28 2020-03-28 Outpatient JM, NADEEN [facility] [id number] [place] 00:00:00 00:00:[address] 2020-02-29 2020-02-29 Outpatient KLEBUC, [facility] [id number] [place] 00:00:00 00:00:00 LEVON [address] 2020-02-27 2020-02-27 Outpatient PIRES, JACKELYN [facility] [id number] [place] 00:00:00 00:00:[address] 2020-02-08 2020-02-08 Outpatient LELIA, ALONSO [facility] [id number] [place] 00:00:00 00:00:[address] 2020-02-06 2020-02-06 Outpatient LELIA, ALONSO [facility] [id number] [place] 00:00:00 00:00:[address] 2020-02-05 2020-02-05 Outpatient JM, NADEEN [facility] [id number] [place] 00:00:00 00:00:[address] 2020-01-24 2020-01-24 Outpatient PIRES, JACKELYN [facility] [id number] [place] 00:00:00 00:00:[address] 2020-01-17 2020-01-17 Outpatient JM, NADEEN [facility] [id number] [place] 00:00:00 00:00:[address] 2019-12-15 2019-12-15 Outpatient PIRES, [facility] [id number] [place] 00:00:00 00:00:00 GENNARO [address] 2019-12-07 2019-12-07 Outpatient JMNADEEN PICKENS [facility] [id number] [place] 00:00:00 00:00:[address] 2019-10-04 2019-10-[address] [facility] [id number] [place] 00:00:00 00:00:[address] 2019-10-03 2019-10-03 Outpatient NADEEN ONEAL [facility] [id number] [place] 00:00:00 00:00:[address] 2019-07-27 2019-07-27 Outpatient KAREN, [facility] [id number] [place] 00:00:00 00:00:00 PHYLLIS [address] 2019-07-27 2019-07-27 Outpatient KAREN, [facility] [id number] [place] 00:00:00 00:00:00 PHYLLIS [address] 2019-07-27 2019-07-27 Outpatient KAREN, [facility] [id number] [place] 00:00:00 00:00:00 PHYLLIS [address] 2019-07-20 2019-07-20 Outpatient JACKELYN PIRES [facility] [id number] [place] 00:00:00 00:00:[address] 2019-07-20 2019-07-20 Outpatient ROBERT PIREST [facility] [id number] [place] 00:00:00 00:00:[address] 2019-07-13 2019-07-13 Outpatient ROBERT PIREST [facility] [id number] [place] 00:00:00 00:00:[address] Results This patient has no known results.
[2020-10-26 04:08] LABS: Absolute Lymphocytes (CBC) 2.7 K/uL (0.7-4.9); Basophils % 0.8 % (0-1.3); Hematocrit 41.2 % (39.6-49.0); Lymphocytes % 28.3 % (15.3-44.8); MPV 9.4 fL (7.6-11.3); RBC Red Blood Cell Count 4.54 M/uL (4.33-5.43)
[2020-10-26 04:17] LABS: Protime INR 0.98
[2020-10-26 04:31] LABS: ALT/SGPT 79 U/L (12-78); AST/SGOT 50 U/L (15-37); Albumin 3.6 g/dL (3.4-5.0); Alkaline Phosphatase 119 U/L (45-117); BUN Blood Urea Nitrogen 10 mg/dL (7-18); Bicarbonate 21 mmol/L (21-32); Bilirubin Direct 0.1 mg/dL (0-0.2); Bilirubin Total 0.3 mg/dL (0.2-1.0); CKMB Creatine Kinase MB 1.1 ng/mL (0.3-3.6); Creatine Phosphokinase 88 U/L (39-308); Glucose Level 179 mg/dL (74-106); Lipase 185 U/L (73-393); Magnesium 2.1 mg/dL (1.8-2.4); Potassium 3.9 mmol/L (3.5-5.1); Sodium Level 138 mmol/L (136-145); Troponin (Emerg Dept Use Only) < 0.02 ng/mL (0.0-0.045)
[2020-10-26] MEDS ORDERED: LORazepam 2 MG/ML VIAL ONE (05:17)
[2020-10-26 05:19] LABS: Urine Blood TRACE (NEG); Urine Glucose TRACE (NEG); Urine Protein 2+ (NEG); Urine Specific Gravity >1.030 (1.005-1.030)
[2020-10-26] MEDS ORDERED: NA CHLORIDE 0.9% 0 ML ONE (05:19)
[2020-10-26] MEDS ORDERED: NA CHLORIDE 0.9% 100 ML ONE (05:19)
[2020-10-26] MEDS ORDERED: LEVETIRACETAM 500 MG/5 ML VIAL IV ONE (05:19)
[2020-10-26] MEDS ORDERED: MAGNESIUM SULFATE 1 gm IVPB 1 GM/100 ML BAG IV ONE (05:21)
[2020-10-26 05:51] LABS: Barbiturates POSITIVE (NEGATIVE); Benzodiazepines NEGATIVE (NEGATIVE); Cocaine NEGATIVE (NEGATIVE); METHAMPHETAM NEGATIVE (NEGATIVE); Methadone NEGATIVE (NEGATIVE); Opiates NEGATIVE (NEGATIVE); Phencyclidine NEGATIVE (NEGATIVE); THC Cannibis NEGATIVE (NEGATIVE)
--- NOTE | 2020-10-26 08:00 | ER ---
Nurse's Notes [facility] Name: Jay Guzman Jr Age: 55 yrs Sex: Male : 1965 Arrival Date: 10/26/2020 Time: 03:43 Bed 8 Private MD: Diagnosis: Headache;Epilepsy and recurrent seizures Presentation: 10/26 03:45 Chief complaint: EMS states: said patient was up, had a seizure like episode and mg2 fell on the floor tonight. patient has no recall of what happened. he has history of new onset seizure, mini stroke last Sep 2020. stroke scale negative. Coronavirus screen: Client denies travel out of the [place] in the last 14 days. Ebola Screen: No symptoms or risks identified at this time. Initial Sepsis Screen: Does the patient meet any 2 criteria? No. Patient's initial sepsis screen is negative. Does the patient have a suspected source of infection? No. Patient's initial sepsis screen is negative. Risk Assessment: Do you want to hurt yourself or someone else? Patient reports no desire to harm self or others. Onset of symptoms was October 26, 2020. 03:45 Method Of Arrival: EMS: [facility] mg2 03:45 Acuity: JOMAR 3 mg2 Triage Assessment: 04:25 Headache History: The patient has had previous headaches. General: Behavior is calm, mg2 cooperative. Pain: Pain currently is 3 out of 10 on a pain scale. Pain began gradually. Pain: Complains of pain in forehead. 04:25 Pain: Also complains of no other associated symptoms. mg2 Historical: - Allergies: 03:56 purell; mg2 - Home Meds: 04:25 Aptiom 600 mg Oral tab 2 tabs once daily [Active]; pantoprazole 40 mg Oral TbEC 1 tab mg2 once daily [Active]; clobazam 20 mg Oral 2 tabs daily [Active]; paroxetine HCl 30 mg Oral tab 1 tab once daily [Active]; nefidipine [Active]; carvedilol 6.25 mg oral tab [Active]; Butalbital Compound 50-325-40 mg Oral tab [Active]; atorvastatin 40 mg oral tab 1 tab once daily [Active]; metformin 1,000 mg Oral tab [Active]; thiamine HCl (vitamin B1) 100 mg Oral tab [Active]; folic acid 1 mg Oral tab 1 tab once daily [Active]; - PMHx: 03:52 High Cholesterol; Hydrocephalus; Seizures; 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 - Social history:: Smoking status: Patient denies any tobacco usage or history of. Patient uses alcohol, Patient/guardian denies using street drugs, IV drugs. Screenin:11 Abuse screen: Denies threats or abuse. Denies injuries from another. Nutritional mg2 screening: No deficits noted. Tuberculosis screening: No symptoms or risk factors identified. Fall Risk Secondary diagnosis (15 points) seizures, CVA, IV access (20 points). Assessment: 03:50 General: Appears in no apparent distress. comfortable, Behavior is calm, cooperative. mg2 Pain: Complains of pain in head. Neuro: Level of Consciousness is awake, alert, obeys commands, Oriented to person, place, time, situation. Neuro: Reports headache. Cardiovascular: Capillary refill < 3 seconds Patient's skin is warm and dry. Respiratory: Airway is patent Respiratory effort is even, unlabored, Respiratory pattern is regular, symmetrical. GI: No signs and/or symptoms were reported involving the gastrointestinal system. : No signs and/or symptoms were reported regarding the genitourinary system. EENT: No signs and/or symptoms were reported regarding the EENT system. Derm: Skin is intact, is healthy with good turgor, Skin is pink, warm \T\ dry. normal. Musculoskeletal: Circulation, motion, and sensation intact. Capillary refill < 3 seconds. 05:00 Reassessment: Dr. Rodriguez at bedside to assess patient post seizure activity; Verbal lp1 order for Ativan 2mg IV, Keppra 1g IV infusion, Magnesium 1g IV now. 05:00 Reassessment: patient had a [place] seizure for approx 2 mins, suctioning done, mg2 nasal trumpet inserted at the right nostril. 06:47 Reassessment: Patient appears in no apparent distress at this time. patient sleeping mg2 with his at the bedside. 07:39 Reassessment: Dr Allison at the bedside. sv 08:15 Reassessment: Pt up for discharge but needing a shuntogram and then needs to be sv resulted. Pt also needs to be more awake prior to discharge. 09:07 General: Appears in no apparent distress. comfortable, well developed, Behavior is sv cooperative, appropriate for age, drowsy, pt able to follow commands. Pt removed the nasal trumpet.. Neuro: Level of Consciousness is awake, obeys commands, lethargic, Oriented to person, place, time, situation. Respiratory: Airway is patent Respiratory effort is even, unlabored, Respiratory pattern is regular, symmetrical. Derm: Skin is pink, warm \T\ dry. 10:36 Reassessment: Patient appears in no apparent distress at this time. Patient and/or sv family updated on plan of care and expected duration. Pain level reassessed. Pt remains to be lethargic and drowsy. Spouse at the bedside. 11:15 Reassessment: Patient appears in no apparent distress at this time. Patient and/or sv family updated on plan of care and expected duration. Pain level reassessed. Patient is alert, oriented x 3, equal unlabored respirations, skin warm/dry/pink. Pt more awake at this time. Vital Signs: 03:45 BP 157 / 105; Resp 18; Temp 97.5; Pulse Ox 98% on R/A; mg2 04:11 Pulse 101; Pulse Ox 98% on R/A; Weight 83.91 kg; Height 5 ft. 4 in. (162.56 cm); mg2 05:00 BP 162 / 96; Pulse 123; Resp 18; Pulse Ox 100% on 100% Non-rebreather mask; mg2 06:00 BP 111 / 67; Pulse 107; Resp 19; Pulse Ox 99% ; rr5 06:46 BP 105 / 71; Pulse 103; Resp 18; Pulse Ox 96% on R/A; mg2 07:30 BP 112 / 81; Pulse 99; Resp 14; Pulse Ox 100% ; sv 08:30 BP 145 / 92; Pulse 107; Resp 17; Pulse Ox 100% ; sv 10:35 BP 121 / 94; Pulse 100; Resp 16; Pulse Ox 98% on R/A; sv 11:16 BP 110 / 79; Pulse 94; Resp 16; Pulse Ox 97% ; sv 04:11 Body Mass Index 31.75 (83.91 kg, 162.56 cm) mg2 ED Course: 03:43 Patient arrived in ED. lp1 03:45 Elie Rodriguez MD is Attending Physician. tw4 03:45 Gardose, Javier, RN is Primary Nurse. mg2 03:48 Triage completed. mg2 03:56 Arm band placed on. mg2 04:11 Patient has correct armband on for positive identification. applied psychology professor on. Pulse mg2 ox on. NIBP on. Door closed. Warm blanket given. 04:11 No provider procedures requiring assistance completed. Maintain EMS IV. Dressing mg2 intact. Good blood return noted. Site clean \T\ dry. Gauge \T\ site: 20 \T\ LAC. 04:11 EKG done, by ED staff, reviewed by Elie Rodriguez MD. mg2 04:23 CT Head C Spine In Process Unspecified. EDMS 05:00 Placed nasal trumpet 24 Fr via right nare. lp1 07:22 Attending Physician role handed off by Elie Rodriguez MD kika 07:22 Caesar Allison MD is Attending Physician. kika 07:28 Basic Metabolic Panel Sent. sv 07:28 CBC with Diff Sent. sv 07:28 Ckmb Sent. sv 07:59 Srinivasan Hogan MD is Referral Physician. kika 08:22 Primary Nurse role handed off by Javier Cardona RN sv 08:22 Elaina Dyson, SHEFALI is Primary Nurse. sv 08:53 Shuntogram XRAY In Process Unspecified. EDMS 08:57 Patient moved back from radiology. sv 11:27 IV discontinued, intact, bleeding controlled, No redness/swelling at site. Pressure sv dressing applied. Administered Medications: 04:52 Drug: Ativan 2 mg Route: IVP; Site: left antecubital; mg2 05:30 Follow up: Response: No adverse reaction mg2 04:55 Drug: Keppra 1000 mg Route: IV; Rate: calculated rate; Site: left antecubital; mg2 05:30 Follow up: Response: No adverse reaction; IV Status: Completed infusion; IV Intake: rr5 100ml 05:00 Drug: Magnesium Sulfate 1 grams Route: IVPB; Infused Over: 1 hrs; Site: left mg2 antecubital; 06:00 Follow up: Response: No adverse reaction; IV Status: Completed infusion; IV Intake: rr5 100ml Intake: 05:30 IV: 100ml; Total: 100ml. rr5 06:00 IV: 100ml; Total: 200ml. rr5 Outcome: 07:59 Discharge ordered by . kika 11:27 Discharged to home via wheelchair, with family. sv 11:27 Condition: stable 11:27 Discharge instructions given to patient, family, Instructed on discharge instructions, follow up and referral plans. medication usage, Demonstrated understanding of instructions, follow-up care, medications, Prescriptions given X 2. 11:28 Patient left the ED. sv Signatures: Dispatcher [employer] EDMS Elaina Dyson RN RN sv Caesar Allison MD MD cha Pena, Laura, RN RN lp1 Elie Rodriguez MD MD tw4 Javier Cardona RN RN mg2 Nathaniel Leonardo RN RN rr5 Corrections: (The following items were deleted from the chart) 04:22 03:45 Chief complaint: EMS states: said patient was up and just fell on the floor mg2 tonight. patient has no recall of what happened. he has history of new onset seizure, mini stroke last Sep 2020. stroke scale negative. mg2 06:48 06:47 Reassessment: patient sleeping with his at the bedside. mg2 mg2
--- NOTE | 2020-10-26 08:00 | EDPHYS ---
Physician Documentation [facility] Name: Jay Guzman Jr Age: 55 yrs Sex: Male : 1965 Arrival Date: 10/26/2020 Time: 03:43 Bed 8 Private MD: ED Physician Caesar Allison HPI: 10/26 04:05 This 55 yrs old Male presents to ER via EMS with complaints of Headache. tw4 04:05 The patient has experienced syncope. Onset: The symptoms/episode began/occurred just tw4 prior to arrival, this morning. Duration: This was a single episode, that lasted an unknown period of time. Context: occurred at home, occurred while the patient was getting up from bed. Associated injury: The patient did not suffer any apparent associated injury. Associated signs and symptoms: The patient has no apparent associated signs or symptoms. The patient has not experienced similar symptoms in the past. Historical: - Allergies: 03:56 purell; mg2 - Home Meds: 04:25 Aptiom 600 mg Oral tab 2 tabs once daily [Active]; pantoprazole 40 mg Oral TbEC 1 tab mg2 once daily [Active]; clobazam 20 mg Oral 2 tabs daily [Active]; paroxetine HCl 30 mg Oral tab 1 tab once daily [Active]; nefidipine [Active]; carvedilol 6.25 mg oral tab [Active]; Butalbital Compound 50-325-40 mg Oral tab [Active]; atorvastatin 40 mg oral tab 1 tab once daily [Active]; metformin 1,000 mg Oral tab [Active]; thiamine HCl (vitamin B1) 100 mg Oral tab [Active]; folic acid 1 mg Oral tab 1 tab once daily [Active]; - PMHx: 03:52 High Cholesterol; Hydrocephalus; Seizures; 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 - Social history:: Smoking status: Patient denies any tobacco usage or history of. Patient uses alcohol, Patient/guardian denies using street drugs, IV drugs. ROS: 04:05 Constitutional: Negative for fever, chills, and weight loss, Eyes: Negative for injury, tw4 pain, redness, and discharge, Cardiovascular: Negative for chest pain, palpitations, and edema, Respiratory: Negative for shortness of breath, cough, wheezing, and pleuritic chest pain, Abdomen/GI: Negative for abdominal pain, nausea, vomiting, diarrhea, and constipation, Back: Negative for injury and pain, Skin: Negative for injury, rash, and discoloration. 04:05 Neuro: Positive for headache, seizure activity. Exam: 04:05 Constitutional: This is a well developed, well nourished patient who is awake, alert, tw4 and in no acute distress. Head/Face: Normocephalic, atraumatic. Chest/axilla: Normal chest wall appearance and motion. Nontender with no deformity. No lesions are appreciated. Cardiovascular: Regular rate and rhythm with a normal S1 and S2. No gallops, murmurs, or rubs. Normal PMI, no JVD. No pulse deficits. Respiratory: Lungs have equal breath sounds bilaterally, clear to auscultation and percussion. No rales, rhonchi or wheezes noted. No increased work of breathing, no retractions or nasal flaring. Abdomen/GI: Soft, non-tender, with normal bowel sounds. No distension or tympany. No guarding or rebound. No evidence of tenderness throughout. Back: No spinal tenderness. No costovertebral tenderness. Full range of motion. MS/ Extremity: Pulses equal, no cyanosis. Neurovascular intact. Full, normal range of motion. Neuro: Awake and alert, GCS 15, oriented to person, place, time, and situation. Cranial nerves II-XII grossly intact. Motor strength 5/5 in all extremities. Sensory grossly intact. Cerebellar exam normal. Normal gait. Vital Signs: 03:45 BP 157 / 105; Resp 18; Temp 97.5; Pulse Ox 98% on R/A; mg2 04:11 Pulse 101; Pulse Ox 98% on R/A; Weight 83.91 kg; Height 5 ft. 4 in. (162.56 cm); mg2 05:00 BP 162 / 96; Pulse 123; Resp 18; Pulse Ox 100% on 100% Non-rebreather mask; mg2 06:00 BP 111 / 67; Pulse 107; Resp 19; Pulse Ox 99% ; rr5 06:46 BP 105 / 71; Pulse 103; Resp 18; Pulse Ox 96% on R/A; mg2 07:30 BP 112 / 81; Pulse 99; Resp 14; Pulse Ox 100% ; sv 08:30 BP 145 / 92; Pulse 107; Resp 17; Pulse Ox 100% ; sv 10:35 BP 121 / 94; Pulse 100; Resp 16; Pulse Ox 98% on R/A; sv 11:16 BP 110 / 79; Pulse 94; Resp 16; Pulse Ox 97% ; sv 04:11 Body Mass Index 31.75 (83.91 kg, 162.56 cm) mg2 MDM: 03:52 Patient medically screened. tw4 07:57 Differential Diagnosis: cardiac arrhythmia, cerebrovascular accident, drug effect, kika seizure. Data reviewed: vital signs, nurses notes, lab test result(s), EKG, radiologic studies, CT scan. Data interpreted: color developer: rate is 103 beats/min, rhythm is normal sinus rhythm, Pulse oximetry: on room air. Test interpretation: by ED physician or midlevel provider: ECG. Counseling: I had a detailed discussion with the patient and/or guardian regarding: the historical points, exam findings, and any diagnostic results supporting the discharge/admit diagnosis, lab results. 10/26 03:48 Order name: Basic Metabolic Panel tw4 10/26 03:48 Order name: CBC with Diff tw4 10/26 03:48 Order name: Ckmb tw4 10/26 03:48 Order name: CPK; Complete Time: 05:01 tw4 10/26 03:48 Order name: Hepatic Function; Complete Time: 05:01 tw4 10/26 03:48 Order name: Lipase; Complete Time: 05:01 tw4 10/26 03:48 Order name: Magnesium; Complete Time: 05:01 tw4 10/26 03:48 Order name: Protime (+inr); Complete Time: 05:01 tw4 10/26 03:48 Order name: Ptt, Activated; Complete Time: 05:01 tw4 10/26 03:48 Order name: Troponin (emerg Dept Use Only); Complete Time: 05:01 tw4 10/26 03:48 Order name: Basic Metabolic Panel; Complete Time: 05:01 EDMS 10/26 03:48 Order name: CBC with Automated Diff; Complete Time: 05:01 EDMS 10/26 03:48 Order name: CKMB Creatine Kinase MB; Complete Time: 05:01 EDMS 10/26 04:07 Order name: Glucose, Ancillary Testing; Complete Time: 05:01 EDMS 10/26 03:48 Order name: CT Head C Spine 10/26 03:48 Order name: EKG; Complete Time: 03:49 tw10/26 03:48 Order name: Cardiac monitoring; Complete Time: 04:09 tw10/26 03:48 Order name: EKG - Nurse/Tech; Complete Time: 04:09 tw10/26 03:48 Order name: IV Saline Lock; Complete Time: 04:09 tw10/26 03:48 Order name: Labs collected and sent; Complete Time: 04:09 10/26 03:48 Order name: NPO; Complete Time: 04:09 10/26 03:48 Order name: O2 Per Protocol; Complete Time: 04:09 10/26 03:48 Order name: O2 Sat Monitoring; Complete Time: 04:09 10/26 03:48 Order name: Urine Dipstick-Ancillary (obtain specimen); Complete Time: 04:55 tw10/26 04:49 Order name: UDS; Complete Time: 07:25 mg2 10/26 04:49 Order name: Urine Dipstick--Ancillary (enter results); Complete Time: 07:25 mw2 10/26 08:02 Order name: Shuntogram XRAY [facility] 10/26 07:25 Order name: Seizure Precautions; Complete Time: 07:28 kika 10/26 07:57 Order name: Misc. Order: give pt his own med Aptiom 800mg po x1; Complete Time: 09:00 kika EC:05 Rate is 96 beats/min. Rhythm is regular. QRS Cope is Normal. MA interval is normal. QRS tw4 interval is normal. QT interval is normal. T waves are Inverted in leads III, V3, V4, V5, V6. No ST changes noted. Clinical impression: NSR w/ Non-specific ST/T Changes. Interpreted by me. Reviewed by me. Administered Medications: 04:52 Drug: Ativan 2 mg Route: IVP; Site: left antecubital; mg2 05:30 Follow up: Response: No adverse reaction mg2 04:55 Drug: Keppra 1000 mg Route: IV; Rate: calculated rate; Site: left antecubital; mg2 05:30 Follow up: Response: No adverse reaction; IV Status: Completed infusion; IV Intake: rr5 100ml 05:00 Drug: Magnesium Sulfate 1 grams Route: IVPB; Infused Over: 1 hrs; Site: left mg2 antecubital; 06:00 Follow up: Response: No adverse reaction; IV Status: Completed infusion; IV Intake: rr5 100ml Disposition: 10/26/20 07:59 Discharged to Home. Impression: Headache, Epilepsy and recurrent seizures. - Condition is Fair. - Discharge Instructions: General Headache Without Cause, Seizure, Adult, Seizure, Adult, [id number], General Headache Without Cause, [id number]. - Prescriptions for Aptiom 800 mg Oral tablet - take 1 tablet by ORAL route once daily; 30 tablet. Keppra 500 mg Oral Tablet - take 1 tablet by ORAL route every 12 hours; 20 tablet. - Medication Reconciliation Form, Thank You Letter, Antibiotic Education, Prescription Opioid Use form. - Follow up: Private Physician; When: 2 - 3 days; Reason: Recheck today's complaints, Continuance of care, Re-evaluation by your physician. Follow up: Srinivasan Hogan MD; When: 2 - 3 days; Reason: Recheck today's complaints, Re-evaluation by your physician. - Problem is new. - Symptoms have improved. Signatures: Dispatcher [employer] EDElaina Magdaleno RN RN sv Caesar Allison MD MD cha Pena, Laura RN RN lp1 Elie Rodriguez MD MD tw4 Javier Cardona RN RN mg2 Nathaniel Leonardo RN rr5 Corrections: (The following items were deleted from the chart) 11:28 07:59 10/26/2020 07:59 Discharged to Home. Impression: Headache; Epilepsy and recurrent sv seizures. Condition is Fair. Forms are Medication Reconciliation Form, Thank You Letter, Antibiotic Education, Prescription Opioid Use. Follow up: Private Physician; When: 2 - 3 days; Reason: Recheck today's complaints, Continuance of care, Re-evaluation by your physician. Follow up: Srinivasan Hogan; When: 2 - 3 days; Reason: Recheck today's complaints, Re-evaluation by your physician. Problem is new. Symptoms have improved. kika
[2020-10-26 11:38] VITALS: TEMP 97.5
[2020-10-26 11:47] VITALS: BP 110/79; O2SAT 97
--- NOTE | 2020-10-26 12:51 | RAD REPORT ---
EXAM DESCRIPTION: CT Head and Cervical Spine Without Intravenous Contrast CLINICAL HISTORY: The patient is 55 years old and is Male; SYNCOPE;Pain TECHNIQUE: Axial computed tomography images of the head/brain and cervical spine without intravenous contrast. Sagittal and coronal reformatted images were created and reviewed. This CT exam was pe rformed using one or more of the following dose reduction techniques: automated exposure control, a djustment of the mA and/or kV according to patient size, and/or use of iterative reconstruction techn ique. COMPARISON: CT of the head October 11, 2020 FINDINGS: BRAIN: Focal encephalomalacia within the left inferior temporal lobe is present. [facility] periventricular white matter abnormality is noted. There is no intracranial hemorrhage, mass eff ect, or midline shift. There are no extra-axial fluid collections. VENTRICLES: Unremarkable. No ventriculomegaly. SKULL: No acute fracture. SINUSES: Unremarkable as visualized. No acute sinusitis. MASTOID AIR CELLS: Unremarkable as visualized. No mastoid effusion. VERTEBRAE: The vertebral body heights and alignment are maintained. No acute fracture. DISCS/SPINAL CANAL/NEURAL FORAMINA: There is multi-level intervertebral disc height loss. There a re disc-osteophyte complexes at several levels, with associated mild spinal canal narrowing. There is also facet hypertrophy and uncovertebral joint osteophytosis, with associated multilevel neural fora marisol narrowing. SOFT TISSUES: The soft tissues are normal. LUNG APICES: Unremarkable as visualized. TUBES, LINES AND DEVICES: A right posterior parietal approach ventriculostomy catheter is present , the tip ends near the frontal lobe. The position is stable from prior exam. IMPRESSION: 1. No acute intracranial findings or detrimental change from prior exam. 2. Mild/moderate spondylosis of the cervical spine without acute findings. Electronically signed by: Carli Stuart MD 10/26/2020 4:36 AM PHYSICIAN ASSISTANT PSYCHIATRY Due to temporary technical issues with the PACS/Fluency reporting system, reports are being signed by the in house radiologists without review as a courtesy to insure prompt reporting. The interpreting radiologist is fully responsible for the content of the report.
--- NOTE | 2020-10-26 13:04 | RAD REPORT ---
EXAM DESCRIPTION: RAD - Shuntogram - 10/26/2020 8:55 am CLINICAL HISTORY: seizure, diane Headache, drowsiness COMPARISON: Shuntogram dated 08/29/2018; Head C Spine Mpr Wo Con dated 10/26/2020 FINDINGS: Right-sided shunt tubing is noted. Several segments of old shunt tubing are also present. No kink or break in the tubing is visualized.
--- NOTE | 2020-10-26 15:27 | EKG ---
Test Date: 2020-10-26 Test Time: 04:02:34 Data Conversion Operator: MEASUREMENT RESULTS: Intervals: Rate: 96 DC: 122 QRSD: 76 QT: 340 QTc: 429 [place]: P: 63 DC: 122 QRS: 55 T: -22 INTERPRETIVE STATEMENTS: Normal sinus rhythm T wave abnormality, consider lateral ischemia Abnormal ECG Compared to ECG 10/11/2020 13:27:37 T-wave abnormality now present Possible ischemia now present Sinus tachycardia no longer present Myocardial infarct finding no longer present Electronically Signed On 10-26-20 15:26:19 BIOLOGICAL LAB TECHNICIAN by [place] Orta
== END 2020-10-26 11:28 | disposition home or self-care (01) ==
LOC: ER 03:40
DX: G40.802 Other epilepsy, not intractable, without status epilepticus (principal); E78.00 Pure hypercholesterolemia, unspecified; Z98.2 Presence of cerebrospinal fluid drainage device; Z91.048 Other nonmedicinal substance allergy status
CPT/HCPCS: 96365; 93005; 85025; 80048; 36415; 83735; 82550; 85610; 82947; 80076; 80307 ×8; 85730; 81003; 84484; 82553; 83690; 70450; 72125; 75809; 49427; 96375; 99285; J3475; J1953; J7030

== ENCOUNTER 2021-08-04 21:53 | Emergency (ER) | payer OTHER ==
[2021-08-04 23:02] LABS: Absolute Lymphocytes (CBC) 1.9 K/uL (0.7-4.9); Basophils % 0.5 % (0-1.3); Hematocrit 44.7 % (39.6-49.0); Lymphocytes % 16.1 % (15.3-44.8); MPV 8.3 fL (7.6-11.3)
[2021-08-04] MEDS ORDERED: NA CHLORIDE 0.9% 1,000 ML ONE (23:04)
[2021-08-04] MEDS ORDERED: TAMSULOSIN 0.4 MG SR CAP ONE (23:04)
[2021-08-04 23:14] LABS: Albumin 4.9 g/dL (3.4-5.0); Bilirubin Total 0.4 mg/dL (0.2-1.0); Potassium 3.5 mmol/L (3.5-5.1); Protein, Total 9.7 g/dL (6.4-8.2)
[2021-08-04 23:30] LABS: Urine Blood 3+ (Negative); Urine Glucose Negative (Negative); Urine Protein 2+ (Negative); Urine Specific Gravity >=1.030 (1.005-1.030)
[2021-08-05] MEDS ORDERED: CEFTRIAXONE 1000 MG/VIAL ONE (00:01)
--- NOTE | 2021-08-05 00:06 | EDPHYS ---
Physician Documentation [facility] Name: Jay Guzman Jr Age: 56 yrs Sex: Male : 1965 Arrival Date: 08/04/2021 Time: 21:54 Bed 18 Private MD: ED Physician Caesar Allison HPI: 08/04 22:43 This 56 yrs old Male presents to ER via Ambulatory with complaints of Pain kika With Urination, Abdominal Pain. 22:43 The patient presents with urinary symptoms, retention, unable to void. Onset: The kika symptoms/episode began/occurred today, 1 day(s) ago. Modifying factors: The symptoms are alleviated by nothing, the symptoms are aggravated by movement, pressure. Associated signs and symptoms: The patient has no apparent associated signs or symptoms. The patient has not experienced similar symptoms in the past. Historical: - Allergies: 22:00 purell; ss - PMHx: 22:00 High Cholesterol; Seizures; Hydrocephalus; [employer] SHUNT; ss - Immunization history:: Adult Immunizations up to date. - Social history:: Smoking status: Patient denies any tobacco usage or history of. ROS: 22:44 Constitutional: Negative for fever, chills, and weight loss, Eyes: Negative for injury, kika pain, redness, and discharge, ENT: Negative for injury, pain, and discharge, Neck: Negative for injury, pain, and swelling, Cardiovascular: Negative for chest pain, palpitations, and edema, Respiratory: Negative for shortness of breath, cough, wheezing, and pleuritic chest pain, Back: Negative for injury and pain, MS/Extremity: Negative for injury and deformity, Skin: Negative for injury, rash, and discoloration, Neuro: Negative for headache, weakness, numbness, tingling, and seizure, Psych: Negative for depression, anxiety, suicide ideation, homicidal ideation, and hallucinations, Allergy/Immunology: Negative for hives, rash, and allergies, Endocrine: Negative for neck swelling, polydipsia, polyuria, polyphagia, and marked weight changes, Hematologic/Lymphatic: Negative for swollen nodes, abnormal bleeding, and unusual bruising. 22:44 Abdomen/GI: Positive for abdominal pain, abdominal cramps, of the suprapubic area. 22:44 : Positive for flank pain, urinary frequency, small amounts, difficulty urinating. Exam: 22:44 Constitutional: This is a well developed, well nourished patient who is awake, alert, kika and in no acute distress. Head/Face: Normocephalic, atraumatic. Eyes: Pupils equal round and reactive to light, extra-ocular motions intact. Lids and lashes normal. Conjunctiva and sclera are non-icteric and not injected. Cornea within normal limits. Periorbital areas with no swelling, redness, or edema. ENT: Nares patent. No nasal discharge, no septal abnormalities noted. Tympanic membranes are normal and external auditory canals are clear. Oropharynx with no redness, swelling, or masses, exudates, or evidence of obstruction, uvula midline. Mucous membranes moist. Neck: Trachea midline, no thyromegaly or masses palpated, and no cervical lymphadenopathy. Supple, full range of motion without nuchal rigidity, or vertebral point tenderness. No Meningismus. Chest/axilla: Normal chest wall appearance and motion. Nontender with no deformity. No lesions are appreciated. Cardiovascular: Regular rate and rhythm with a normal S1 and S2. No gallops, murmurs, or rubs. Normal PMI, no JVD. No pulse deficits. Respiratory: Lungs have equal breath sounds bilaterally, clear to auscultation and percussion. No rales, rhonchi or wheezes noted. No increased work of breathing, no retractions or nasal flaring. Back: No spinal tenderness. No costovertebral tenderness. Full range of motion. Male : Normal genitalia with no discharge or lesions. Skin: Warm, dry with normal turgor. Normal color with no rashes, no lesions, and no evidence of cellulitis. MS/ Extremity: Pulses equal, no cyanosis. Neurovascular intact. Full, normal range of motion. Neuro: Awake and alert, GCS 15, oriented to person, place, time, and situation. Cranial nerves II-XII grossly intact. Motor strength 5/5 in all extremities. Sensory grossly intact. Cerebellar exam normal. Normal gait. Psych: Awake, alert, with orientation to person, place and time. Behavior, mood, and affect are within normal limits. 22:44 Abdomen/GI: Inspection: abdomen appears normal, Bowel sounds: active, all quadrants, Palpation: moderate abdominal tenderness, in the suprapubic area, Liver: no appreciated palpable abnormalities, Hernia: not appreciated. Vital Signs: 21:57 BP 161 / 120; Pulse 111; Resp 18; Temp 98.0; Pulse Ox 100% on R/A; Weight 70.31 kg; ss Height 5 ft. 4 in. (162.56 cm); Pain 08/02; 08/05 00:54 BP 156 / 103; Pulse 105; Resp 18; Pulse Ox 99% on R/A; lh3 08/04 21:57 Body Mass Index 26.61 (70.31 kg, 162.56 cm) ss MDM: 08/04 22:17 Patient medically screened. [facility] 08/04 22:32 Order name: CBC with Diff; Complete Time: 23:57 [facility] 08/04 22:32 Order name: Comprehensive Metabolic Panel; Complete Time: 23:57 [facility] 08/04 22:32 Order name: Urine Culture [facility] 08/04 22:32 Order name: CT Stone Protocol [facility] 08/04 23:30 Order name: Urine Dipstick-Ancillary; Complete Time: 23:57 EDMS 08/04 22:32 Order name: Bladder Scanner; Complete Time: 22:33 [facility] 08/04 22:32 Order name: Urine Dipstick-Ancillary (obtain specimen); Complete Time: 00:42 [facility] 08/05 00:34 Order name: Vital Signs; Complete Time: 00:39 [facility] Administered Medications: 23:34 Drug: Flomax (tamsulosin) 0.4 mg Route: PO; lh3 23:55 Not Given (Duplicate Order): Viscous Lidocaine Liquid (4 %) 5 ml Mucous Membrane once [facility] 08/05 00:20 Drug: NS 0.9% 1000 ml Route: IV; Rate: 1 bolus; Site: right forearm; lh3 00:37 Drug: Rocephin (cefTRIAXone) 1 grams Route: IV; Rate: per protocol; Site: right lh3 antecubital; 00:37 Drug: Ketorolac 30 mg Route: IVP; Site: right antecubital; lh3 00:37 Drug: morphine 4 mg Route: IVP; Site: right antecubital; lh3 00:37 Drug: Zofran (Ondansetron) 4 mg Route: IVP; Site: right antecubital; lh3 00:37 Drug: NS 0.9% 1000 ml Route: IV; Rate: 1 bolus; Site: right antecubital; lh3 01:23 Drug: Cipro (ciprofloxacin) 500 mg Route: PO; 3 Disposition Summary: 08/05/21 00:05 Discharge Ordered Location: Home kika Problem: new kika Symptoms: have improved kika Condition: Stable kika Diagnosis - Hydronephrosis with renal and ureteral calculous obstruction - 3 mm left uvj kika - Essential (primary) hypertension kika Followup: kika - With: Private Physician - When: 2 - 3 days - Reason: Recheck today's complaints, Continuance of care, Re-evaluation by your physician Followup: kika - With: - When: 2 - 3 days - Reason: Recheck today's complaints, Re-evaluation by your physician Discharge Instructions: - Discharge Summary Sheet kika - Hypertension, Adult kika - How to Take Your Blood Pressure, [id number] kika - Kidney Stones kika - Kidney Stones, [id number] kika - Hydronephrosis kika - Managing Your Hypertension kika Forms: - Medication Reconciliation Form kika - Thank You Letter kiak - Antibiotic Education kika - Prescription Opioid Use kika Prescriptions: - tamsulosin 0.4 mg Oral capsule - take 1 capsule by ORAL route once daily 1/2 hour following the same meal each kika day; 30 capsule; Refills: 0, Product Selection Permitted - Zofran 4 mg Oral Tablet - take 1 tablet by ORAL route every 12 hours As needed; 20 tablet; Refills: 0, [facility] Product Selection Permitted - Cipro 500 mg Oral Tablet - take 1 tablet by ORAL route every 12 hours for 7 days; 14 tablet; Refills: 0, [facility] Product Selection Permitted - Tylenol-Codeine #3 300 mg-30 mg Oral - take 2 tablet by ORAL route every 4-6 hours; 20 tablet; Refills: 0, Product [facility] Selection Permitted Signatures: Dispatcher [employer] Caesar Aleman MD MD cha Smirch, Shelby, RN RN Chely Brower RN RN 3 Corrections: (The following items were deleted from the chart) 08/04 23:55 22:32 Ellis ordered. [facility]
--- NOTE | 2021-08-05 00:06 | ER ---
Nurse's Notes [facility] Name: Jay Guzman Jr Age: 56 yrs Sex: Male : 1965 Arrival Date: 08/04/2021 Time: 21:54 Bed 18 Private MD: Diagnosis: Hydronephrosis with renal and ureteral calculous obstruction-3 mm left uvj;Essential (primary) hypertension Presentation: 08/04 21:57 Chief complaint: Patient states: painful urination/unable to urinate. Coronavirus ss screen: Vaccine status: Patient reports receiving the 2nd dose of the covid vaccine. Ebola Screen: Patient negative for fever greater than or equal to 101.5 degrees Fahrenheit, and additional compatible Ebola Virus Disease symptoms Patient denies exposure to infectious person. Patient denies travel to an Ebola-affected area in the 21 days before illness onset. Initial Sepsis Screen: Does the patient meet any 2 criteria? No. Patient's initial sepsis screen is negative. Does the patient have a suspected source of infection? No. Patient's initial sepsis screen is negative. Risk Assessment: Do you want to hurt yourself or someone else? Patient reports no desire to harm self or others. Onset of symptoms was August 04, 2021 at 21:00. 21:57 Method Of Arrival: Ambulatory ss 21:57 Acuity: JOMAR 3 ss 22:00 Note Pt states pelvic pain and difficulty to urinate at 2100 today. States some bloody ss discharge. Historical: - Allergies: 22:00 purell; ss - PMHx: 22:00 High Cholesterol; Seizures; Hydrocephalus; [employer] SHUNT; ss - Immunization history:: Adult Immunizations up to date. - Social history:: Smoking status: Patient denies any tobacco usage or history of. Screenin:25 Abuse screen: Denies threats or abuse. Nutritional screening: No deficits noted. lh3 Tuberculosis screening: No symptoms or risk factors identified. Fall Risk IV access (20 points). Assessment: 22:25 General: Appears in no apparent distress. Behavior is calm, cooperative, appropriate lh3 for age. Pain: Complains of pain in suprapubic area Pain does not radiate. Pain at worst was 8 out of 10 on a pain scale. GI: Bowel sounds present X 4 quads. Abd is soft and non tender X 4 quads. Vital Signs: 21:57 BP 161 / 120; Pulse 111; Resp 18; Temp 98.0; Pulse Ox 100% on R/A; Weight 70.31 kg; Height 5 ft. 4 in. (162.56 cm); Pain 08/02; 08/05 00:54 BP 156 / 103; Pulse 105; Resp 18; Pulse Ox 99% on R/A; lh3 08/04 21:57 Body Mass Index 26.61 (70.31 kg, 162.56 cm) ED Course: 08/04 21:54 Patient arrived in ED. ja2 22:00 Triage completed. 22:17 Caesar Allison MD is Attending Physician. kika 22:25 Chely Brower RN is Primary Nurse. lh3 22:32 Patient has correct armband on for positive identification. Bed in low position. Call lh3 light in reach. Side rails up X 1. classroom monitor on. Pulse ox on. NIBP on. Door closed. Noise minimized. Warm blanket given. Verbal reassurance given. 22:32 No provider procedures requiring assistance completed. Inserted saline lock: 18 gauge lh3 in right antecubital area, using aseptic technique. 22:37 Comprehensive Metabolic Panel Sent. lh3 22:37 CBC with Diff Sent. lh3 22:47 CT Stone Protocol In Process Unspecified. EDMS 08/05 00:05 Noel Lopez MD is Referral Physician. [facility] 01:28 Arm band placed on right wrist. lh3 01:28 IV discontinued, intact. lh3 Administered Medications: 08/04 23:34 Drug: Flomax (tamsulosin) 0.4 mg Route: PO; lh3 23:55 Not Given (Duplicate Order): Viscous Lidocaine Liquid (4 %) 5 ml Mucous Membrane once [facility] 08/05 00:20 Drug: NS 0.9% 1000 ml Route: IV; Rate: 1 bolus; Site: right forearm; lh3 00:37 Drug: Rocephin (cefTRIAXone) 1 grams Route: IV; Rate: per protocol; Site: right lh3 antecubital; 00:37 Drug: Ketorolac 30 mg Route: IVP; Site: right antecubital; lh3 00:37 Drug: morphine 4 mg Route: IVP; Site: right antecubital; lh3 00:37 Drug: Zofran (Ondansetron) 4 mg Route: IVP; Site: right antecubital; 3 00:37 Drug: NS 0.9% 1000 ml Route: IV; Rate: 1 bolus; Site: right antecubital; 3 01:23 Drug: Cipro (ciprofloxacin) 500 mg Route: PO; 3 Outcome: 00:05 Discharge ordered by MD. anand 01:27 Discharged to home ambulatory. [facility] 01:27 Condition: stable 01:27 Discharge instructions given to patient, Instructed on discharge instructions, follow up and referral plans. medication usage, Demonstrated understanding of instructions, follow-up care, medications, Prescriptions given X 3. 01:28 Patient left the ED. 3 Signatures: Dispatcher [employer] EDMS Caesar Allison MD MD cha Smirch, Shelby RN RN Chely Villanueva RN RN [facility] Melva Browne
[2021-08-05] MEDS ORDERED: KETOROLAC 30 MG/ML INJ ONE (00:48)
[2021-08-05] MEDS ORDERED: NA CHLORIDE 0.9% 1,000 ML ONE (00:48)
[2021-08-05] MEDS ORDERED: ONDANSETRON 4 MG/2 ML VIAL ONE (00:48)
[2021-08-05] MEDS ORDERED: MORPHINE 4 MG/ML SYR ONE (00:48)
[2021-08-05 01:34] VITALS: TEMP 98
[2021-08-05 01:35] VITALS: BP 156/103; O2SAT 99
[2021-08-05] MEDS ORDERED: CIPROFLOXACIN HCL 500 MG TAB ONE (01:44)
--- NOTE | 2021-08-05 11:39 | RAD REPORT ---
EXAM DESCRIPTION: CT - Stone Protocol - 08/05/2021 6:26 am CLINICAL HISTORY: 56 years Male Abd pain; Flank pain TECHNIQUE: Contiguous axial images obtained through the abdomen and pelvis without IV contrast. Chyna nal and sagittal reformatted images provided. This CT exam was performed according to our departmental dose-optimization program, which includes on e or more of the following dose reduction techniques: automated exposure control, adjustment of the m A and/or kV according to patient size, and/or use of iterative reconstruction technique. COMPARISON: No prior exams provided for comparison. FINDINGS: There is mild left hydroureteronephrosis due to a 3 mm calculus at the left vesicoureteral junction. There are punctate nonobstructing intrarenal calculi bilaterally. No other ureteral or sindy dder calculi. No right-sided hydronephrosis. 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 The lung bases, unenhanced liver, biliary tree, gallbladder, pancreas, spleen, and adrenal glands are normal. Scattered colonic diverticuli. There is no bowel inflammation, obstruction, free intraperitoneal air, or ascites. The appendix is normal. Postsurgical changes in the lumbar spine without acute fracture or aggressive osseous lesion. IMPRESSION: Mild left hydroureteronephrosis due to a 3 mm calculus at the left vesicoureteral juncti on. Punctate nonobstructing intrarenal calculi bilaterally. No other acute abdominal or pelvic findings. Electronically signed by: Aviva Swanson MD 08/04/2021 11:15 PM CDT Due to temporary technical issues with the PACS/Fluency reporting system, reports are being signed by the in house radiologist without review as a courtesy to ensure prompt reporting. The interpreting r adiologist is fully responsible for the content of the report.
== END 2021-08-05 01:28 | disposition home or self-care (01) ==
LOC: ER 21:53
DX: N13.2 Hydronephrosis with renal and ureteral calculous obstruction (principal); I10 Essential (primary) hypertension; Z91.048 Other nonmedicinal substance allergy status
CPT/HCPCS: 87088; 85025; 87086; 36415; 81003; 80053; 76377; 74176; 96375; 96374; 99284; J7030 ×2; J2405

== ENCOUNTER 2021-09-23 19:56 | Emergency (ER) | payer OTHER ==
--- OUTSIDE RECORDS SUMMARY | 2021-09-23 20:00 | XMS REPORT | Continuity of Care Document ---
:1965 Author Organization [facility] t Address [address] [place] [address] Care Team Providers Name Role Phone JM Attending Clinician Unavailable ROCÍO Attending Clinician Unavailable KAREN Attending Clinician Unavailable LEXIS Attending Clinician Unavailable LELIA Attending Clinician Unavailable MEG Attending Clinician Unavailable CYNDIE Attending Clinician Unavailable LEATHA Attending Clinician Unavailable MD Meghan JULIEN Attending Clinician Unavailable MD HERBERT WEAVER Attending Clinician Unavailable DOMINIC Attending Clinician Unavailable LEXIS Attending Clinician Unavailable WILY Admitting Clinician Unavailable MD Meghan JULIEN Admitting Clinician Unavailable MEG Admitting Clinician Unavailable MD HERBERT WEAVER Admitting Clinician Unavailable JM Admitting Clinician Unavailable Problems This patient has no known problems. Allergies, Adverse Reactions, Alerts This patient has no known allergies or adverse reactions. Medications This patient has no known medications. Procedures This patient has no known procedures. Encounters Start End Encounter Admission Attending Care Care Encounter Source Date/Time Date/Time Type Type Clinicians Facility Department ID 2022-01-22 2022-01-22 Outpatient [facility] [id number] [facility] 13:30:00 13:30:00 14 layton Mcelroy 2021-09-04 2021-09-04 Outpatient JMNADEEN [facility] [id number] [place] 00:00:00 00:00:[address] 2021-08-24 2021-08-24 Outpatient JMNADEEN [facility] [id number] [place] 00:00:00 00:00:[address] 2021-08-21 2021-08-21 Outpatient JM, NADEEN [facility] [id number] [place] 00:00:00 00:00:[address] 2021-08-21 2021-08-21 Outpatient JM, NADEEN [facility] [id number] [place] 00:00:00 00:00:[address] 2021-08-21 2021-08-21 Outpatient NADEEN ONEAL [facility] [id number] [place] 00:00:00 00:00:[address] 2021-08-21 2021-08-21 Outpatient NADEEN ONEAL [facility] [id number] [place] 00:00:00 00:00:[address] 2021-08-21 2021-08-21 Outpatient NADEEN ONEAL [facility] [id number] [place] 00:00:00 00:00:[address] 2021-08-14 2021-08-14 Outpatient ROCÍO, [facility] [id number] [place] 00:00:00 00:00:00 NARA [address] 2021-08-07 2021-08-07 Outpatient KAREN, [facility] [id number] [place] 00:00:00 00:00:00 PHYLLIS [address] 2021-07-24 2021-07-24 Outpatient MHIE MHIE [id number] 09:45:00 09:45:00 [address] 2021-07-16 2021-07-16 Outpatient PIRES, JACKELYN [facility] [id number] [place] 00:00:00 00:00:[address] 2021-07-10 2021-07-10 Outpatient LELIA, ALONSO [facility] [id number] [place] 00:00:00 00:00:[address] 2021-07-03 2021-07-03 Outpatient KLEBUC, [facility] [id number] [place] 00:00:00 00:00:00 LEVON [address] 2021-07-03 2021-07-03 Outpatient KAREN, [facility] [id number] [place] 00:00:00 00:00:00 PHYLLIS [address] 2021-06-12 2021-06-12 Outpatient MHIE MHIE [id number] [facility] 09:30:00 09:30:00 12 l [address] 2021-05-22 2021-05-22 Outpatient ROCÍO, [facility] [id number] [place] 00:00:00 00:00:00 NARA [address] 2021-03-06 2021-03-06 Outpatient ROCÍO [facility] [id number] [place] 00:00:00 00:00:00 NARA [address] 2021-02-27 2021-02-27 Outpatient KAREN, [facility] [id number] [place] 00:00:00 00:00:00 PHYLLIS [address] 2021-02-20 2021-02-20 Outpatient NADEEN ONEAL [facility] [id number] [place] 00:00:00 00:00:[address] 2021-01-29 2021-01-29 Outpatient CYNDIE, [facility] [id number] [place] 00:00:00 00:00:00 CECILIA [address] 2021-01-15 2021-01-15 Outpatient PIRESJACKELYN [facility] [id number] [place] 00:00:00 00:00:[address] 2021-01-08 2021-01-08 Outpatient [facility] [id number] [place] 00:00:00 00:00:[address] 2021-01-08 2021-01-08 Outpatient ALONSO ROWELL [facility] [id number] [place] 00:00:00 00:00:[address] 2020-12-05 2020-12-05 Outpatient ROCÍO [facility] [id number] [place] 00:00:00 00:00:00 NARA [address] 2020-11-14 2020-11-14 Outpatient NADEEN ONEAL [facility] [id number] [place] 00:00:00 00:00:[address] 2020-11-12 2020-11-12 Outpatient KAREN, [facility] [id number] [place] 00:00:00 00:00:00 PHYLLIS [address] 2020-11-06 2020-11-06 Outpatient JACKELYN PIRES [facility] [id number] [place] 00:00:00 00:00:[address] 2020-10-11 2020-10-17 Inpatient BIANCA ZHANG [facility] [id number] [place] 00:00:00 00:00:[address] 2020-09-09 2020-09-09 Outpatient ALONSO ROWELL [facility] [id number] [place] 00:00:00 00:00:[address] 2020-09-03 2020-09-03 Outpatient JACKELYN PIRES [facility] [id number] [place] 00:00:00 00:00:[address] 2020-08-29 2020-08-29 Outpatient MHIE MHIE [id number] [place] 09:15:00 09:15:00 10 l [address] 2020-08-29 2020-08-29 Outpatient MHIE MHIE [id number] [place] 09:15:00 09:15:00 11 l [address]i 2020-08-12 2020-08-12 Outpatient ALFORD, [facility] [id number] [place] 00:00:00 00:00:00 NARA [address] 2020-08-07 2020-08-07 Outpatient LELIA, ALONSO [facility] [id number] [place] 00:00:00 00:00:[address] 2020-08-07 2020-08-07 Outpatient KLEBUC, [facility] [id number] [place] 00:00:00 00:00:00 LEVON [address] 2020-08-01 2020-08-01 Outpatient JONES, [facility] [id number] [place] 00:00:00 00:00:00 PHYLLIS [address] 2020-07-21 2020-07-22 Outpatient KLEBUC, [facility] [id number] [place] 00:00:00 00:00:00 LEVON [address] 2020-07-18 2020-07-18 Outpatient KLEBUC, [facility] [id number] [place] 00:00:00 00:00:00 LEVON [address] 2020-07-17 2020-07-17 Outpatient JONES, [facility] [id number] [place] 00:00:00 00:00:00 PHYLLIS [address] 2020-07-15 2020-07-15 Outpatient LELIA, ALONSO [facility] [id number] [place] 00:00:00 00:00:[address] 2020-07-15 2020-07-15 Outpatient KLEBUC, [facility] [id number] [place] 00:00:00 00:00:00 LEVON [address] 2020-07-14 2020-07-14 Outpatient JONES, [facility] [id number] [place] 00:00:00 00:00:00 PHYLLIS [address] 2020-07-08 2020-07-08 Outpatient JM, NADEEN [facility] [id number] [place] 00:00:00 00:00:[address] 2020-06-20 2020-06-20 Outpatient JONES, [facility] [id number] [place] 00:00:00 00:00:00 PHYLLIS [address] 2020-05-22 2020-05-22 Outpatient KLEBUC, [facility] [id number] [place] 00:00:00 00:00:00 LEVON [address] 2020-05-20 2020-05-20 Outpatient LELIA, ALONSO [facility] [id number] [place] 00:00:00 00:00:[address] 2020-05-20 2020-05-20 Outpatient KLEBUC, [facility] [id number] [place] 00:00:00 00:00:00 LEVON [address] 2020-05-19 2020-05-19 Outpatient JONES, [facility] [id number] [place] 00:00:00 00:00:00 PHYLLIS [address] 2020-05-19 2020-05-19 Outpatient JONES, [facility] [id number] [place] 00:00:00 00:00:00 PHYLLIS [address] 2020-05-02 2020-05-02 Outpatient RAIMUNDOBEN, [facility] [id number] [place] 00:00:00 00:00:00 CECILIA [address] 2020-05-02 2020-05-02 Emergency DOMINIC, [facility] [id number] [place] 00:00:00 00:00:00 GUILLE [address] 2020-04-30 2020-04-30 Outpatient ROCÍO, [facility] [id number] [place] 00:00:00 00:00:00 NARA [address] 2020-03-28 2020-03-28 Outpatient JM, NADEEN [facility] [id number] [place] 00:00:00 00:00:[address] 2020-02-29 2020-02-29 Outpatient RIANIE HEENA [id number] [place] 09:15:00 09:15:00 09 layton Mcelroy 2020-02-29 2020-02-29 Outpatient KLEBUC, [facility] [id number] [place] 00:00:00 00:00:00 LEVON [address] 2020-02-27 2020-02-27 Outpatient JACKELYN PIRES [facility] [id number] [place] 00:00:00 00:00:[address] 2020-02-08 2020-02-08 Outpatient LELIAALONSO HERNANDEZ [facility] [id number] [place] 00:00:00 00:00:[address] 2020-02-06 2020-02-06 Outpatient LELIA, ALONSO [facility] [id number] [place] 00:00:00 00:00:[address] 2020-02-05 2020-02-05 Outpatient JM, NADEEN [facility] [id number] [place] 00:00:00 00:00:[address] 2020-01-24 2020-01-24 Outpatient JACKELYN PIRES [facility] [id number] [place] 00:00:00 00:00:[address] 2020-01-17 2020-01-17 Outpatient JM, NADEEN [facility] [id number] [place] 00:00:00 00:00:[address] 2019-12-15 2019-12-15 Outpatient LEXIS [facility] [id number] [place] 00:00:00 00:00:00 GENNARO [address] 2019-12-07 2019-12-07 Outpatient JM, NADEEN [facility] [id number] [place] 00:00:00 00:00:[address] 2019-11-09 2019-11-09 Outpatient MHIE [id number] [place] 09:30:00 09:30:00 03 layton Mcelroy 2019-10-04 2019-10-08 Inpatient JM, NADEEN [facility] [id number] [place] 00:00:00 00:00:[address] 2019-10-03 2019-10-03 Outpatient JM, NADEEN [facility] [id number] [place] 00:00:00 00:00:[address] 2019-08-07 2019-08-07 Outpatient MHIE MHIE [id number] [place] 11:00:00 11:00:00 08 layton Mcelroy 2019-07-27 2019-07-27 Outpatient KAREN, [facility] [id number] [place] 00:00:00 00:00:00 PHYLLIS 243 [address] i 2019-07-27 2019-07-27 Outpatient KAREN [facility] [id number] [place] 00:00:00 00:00:00 PHYLLIS 242 [facility] i 2019-07-27 2019-07-27 Outpatient KAREN [facility] [id number] [place] 00:00:00 00:00:00 PHYLLIS 240 Method i 2019-07-20 2019-07-20 Outpatient JACKELYN PIRES [facility] [id number] [place] 00:00:00 00:00:00 737 [facility] 2019-07-20 2019-07-20 Outpatient JACKELYN PIRES [facility] [id number] [place] 00:00:00 00:00:00 369 [facility] i 2019-07-13 2019-07-13 Outpatient JACKELYN PIRES [facility] [id number] [place] 00:00:00 00:00:00 857 [facility] i 2019-05-08 2019-05-08 Outpatient MHIE MHIE [id number] [place] 11:00:00 11:00:00 07 layton Mcelroy 2019-03-20 2019-03-20 Outpatient MHIE MHIE [id number] [place] 11:00:00 11:00:00 06 layton Mcelroy 2018-12-19 2018-12-19 Outpatient MHIE MHIE [id number] [place] 11:00:00 11:00:00 05 alyton Mcelroy 2018-12-19 2018-12-19 Outpatient MHIE MHIE [id number] [facility] 11:00:00 11:00:00 04 layton Mcelroy 2018-11-10 2018-11-10 Outpatient MHIE MHIE [id number] 09:15:00 09:15:00 02 layton Mcelroy 2018-07-07 2018-07-07 Outpatient MHIE MHIE [id number] 09:15:00 09:15:00 01 layton Mcelroy 2017-12-30 2017-12-30 Outpatient MHIE MHIE [id number] [facility] 09:30:00 09:30:00 00 layton Mcelroy Results Test Description Test Time Test Comments Results Result Comments Source SARS-CoV-2 (COVID-19) RNA [Presence] in Respiratory sp ecimen by 2020-10-12 18:13:47 SOUMYA with probe detection Test Item Value Reference Range Interpretation Comme nts SARS-CoV-2 (COVID-19) RNA [Presence] in Respiratory Not detected No t-Detected specimen by SOUMYA with probe detection (test code = 83063-3) SARS-CoV-2 (COVID-19) RNA [Presence] in Respiratory specimen by SOUMYA with probe [id number] 23:48:50 Test Item Value Reference Range Interpretation Comments SARS-CoV-2 (COVID-19) RNA Not detected Not-Detected [Presence] in Respiratory specimen by SOUMYA with probe detection (test code = 43465-3) SARS-CoV-2 (COVID-19) RNA [Presence] in Respiratory specimen by SOUMYA with probe [id number] 17:40:52 Test Item Value Reference Range Interpretation Comments SARS-CoV-2 (COVID-19) RNA Not detected Not-Detected [Presence] in Respiratory specimen by SOUMYA with probe detection (test code = 53218-1)
[2021-09-23] MEDS ORDERED: MORPHINE 4 MG/ML SYR ONE (21:21)
[2021-09-23] MEDS ORDERED: ONDANSETRON 4 MG/2 ML VIAL ONE (21:21)
--- NOTE | 2021-09-23 21:24 | RAD REPORT ---
EXAM DESCRIPTION: CT - Stone Protocol - 09/23/2021 9:13 pm CLINICAL HISTORY: Abdominal pain. COMPARISON: July 2021 TECHNIQUE: Computed axial tomography of the abdomen pelvis was obtained without oral or IV contrast. Lack of IV and oral contrast limits evaluation of solid organs, bowel, and vessels. Coronal reformat lucinda images were obtained and reviewed. All CT scans are performed using dose optimization technique as appropriate and may include automated exposure control or mA/KV adjustment according to patient size. FINDINGS: Small bilateral renal calculi. Mild right hydronephrosis. Right ureter is dilated. 3 millimeter calculus distal right ureter. No lef t hydronephrosis. The liver, spleen, pancreas and adrenals appear grossly normal There is no evidence of diverticulitis. The appendix appears normal Postsurgical changes lumbar spine The tip of a SHUTDOWN COORDINATOR shunt within the anterior left upper abdomen. Tiny umbilical hernia IMPRESSION: A 3 millimeter calculus distal right ureter resulting in mild right hydronephrosis
[2021-09-23 21:44] LABS: Urine Blood 3+ (Negative); Urine Glucose Negative (Negative); Urine Protein 3+ (Negative); Urine Specific Gravity >=1.030 (1.005-1.030)
[2021-09-23 21:46] LABS: Absolute Lymphocytes (CBC) 2.1 K/uL (0.7-4.9); Basophils % 0.7 % (0-1.3); Hematocrit 46.3 % (39.6-49.0); Lymphocytes % 25.5 % (15.3-44.8); MPV 7.9 fL (7.6-11.3); RBC Red Blood Cell Count 5.24 M/uL (4.33-5.43)
[2021-09-23 22:13] LABS: Albumin 4.6 g/dL (3.4-5.0); Bilirubin Direct 0.2 mg/dL (0-0.2); Bilirubin Total 0.5 mg/dL (0.2-1.0); Potassium 4.1 mmol/L (3.5-5.1); Protein, Total 9.4 g/dL (6.4-8.2)
[2021-09-23] MEDS ORDERED: KETOROLAC 30 MG/ML INJ ONE (23:01)
[2021-09-23 23:05] LABS: Calcium Oxalate Crystals- Ur MODERATE (NONE SEEN); Urine RBC >50 /HPF (NONE SEEN)
[2021-09-23 23:06] LABS: Urine Bacteria <20 /HPF (NONE SEEN); Urine Urothelial Cells <5 /HPF (NONE SEEN)
[2021-09-23] MEDS ORDERED: NA CHLORIDE 0.9% 1,000 ML ONE (23:43)
--- NOTE | 2021-09-24 01:23 | ER ---
Nurse's Notes [facility] Name: Jay Guzman Jr Age: 56 yrs Sex: Male : 1965 Arrival Date: 09/23/2021 Time: 20:02 Bed 20 Private MD: Diagnosis: Hydronephrosis with renal and ureteral calculous obstruction Presentation: 09/23 20:20 Chief complaint: Patient states: Pt was seen in ED in July 2021 for kidney stone; vg1 states today noticed blood in urine and unable to have a full flow upon urination. Denies nausea or vomiting. States Lower ABD/pelvic pain. Coronavirus screen: Vaccine status: Patient reports receiving the 2nd dose of the covid vaccine. Ebola Screen: Patient negative for fever greater than or equal to 101.5 degrees Fahrenheit, and additional compatible Ebola Virus Disease symptoms. Initial Sepsis Screen: Does the patient meet any 2 criteria? HR > 90 bpm. Risk Assessment: Do you want to hurt yourself or someone else? Patient reports no desire to harm self or others. Onset of symptoms was September 23, 2021. 20:20 Method Of Arrival: Ambulatory vg1 20:20 Acuity: JOMAR 3 vg1 Triage Assessment: 20:24 General: Appears in no apparent distress. uncomfortable, Behavior is calm, cooperative. vg1 Pain: Complains of pain in suprapubic area, right lower quadrant and left lower quadrant Pain currently is 7 out of 10 on a pain scale. GI: Abdomen is round non-distended. : Reports pain in suprapubic area lower quadrant(s) with urination, blood in urine urinary frequency. 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 - Social history:: Smoking status: Patient denies any tobacco usage or history of. Screenin:59 Abuse screen: Denies threats or abuse. Nutritional screening: No deficits noted. as6 Tuberculosis screening: No symptoms or risk factors identified. Fall Risk None identified. Assessment: 21:30 General: Appears in no apparent distress. comfortable, Behavior is calm, cooperative. as6 Pain: Complains of pain in suprapubic area Quality of pain is described as pressure, sharp. Neuro: Level of Consciousness is awake, alert, obeys commands, Oriented to person, place, time, situation. Cardiovascular: Capillary refill < 3 seconds Patient's skin is warm and dry. Respiratory: Airway is patent Trachea midline Respiratory effort is even, unlabored, Respiratory pattern is regular, symmetrical. : Reports inability to void, pain in suprapubic area. Derm: Skin is intact, is healthy with good turgor. 09/24 00:49 Reassessment: Patient and/or family updated on plan of care and expected duration. Pain as6 level reassessed. Patient is alert, oriented x 3, equal unlabored respirations, skin warm/dry/pink. Vital Signs: 09/23 20:20 BP 124 / 99; Pulse 125; Resp 20; Temp 97.7; Pulse Ox 99% ; Weight 61.23 kg; Height 5 vg1 ft. 4 in. (162.56 cm); Pain 7/10; 21:54 BP 116 / 81; Pulse 112; Resp 20 S; Pulse Ox 95% on R/A; as6 23:06 BP 122 / 89; Pulse 116; Resp 22 S; Pulse Ox 98% on R/A; as6 12/02 00:18 BP 120 / 82; Pulse 118; Resp 16 S; Pulse Ox 97% on R/A; as6 01:20 BP 126 / 86; Pulse 106; Resp 20 S; Pulse Ox 98% on R/A; as6 09/23 20:20 Body Mass Index 23.17 (61.23 kg, 162.56 cm) vg1 ED Course: 09/23 20:02 Patient arrived in ED. bp1 20:22 Triage completed. vg1 20:24 Arm band placed on. vg1 20:40 Alexander Fiore PA is PHCP. jr8 20:40 Jp Ochoa MD is Attending Physician. jr8 20:42 Bladimir Landon, SHEFALI is Primary Nurse. as6 21:13 CT Stone Protocol In Process Unspecified. EDMS 21:59 Bed in low position. Call light in reach. Side rails up X 1. Adult w/ patient. Pulse ox as6 on. NIBP on. 21:59 Inserted saline lock: 20 gauge in right antecubital area, using aseptic technique. as6 Blood collected. 09/24 01:22 Noel Lopez MD is Referral Physician. jr8 01:39 No provider procedures requiring assistance completed. IV discontinued, intact, as6 bleeding controlled, No redness/swelling at site. Pressure dressing applied. Administered Medications: 09/23 21:44 Drug: morphine 4 mg Route: IVP; Site: right antecubital; as6 22:15 Follow up: Response: No adverse reaction; Pain is decreased; RASS: Alert and Calm (0) as6 21:44 Drug: Zofran (Ondansetron) 4 mg Route: IVP; Site: right antecubital; as6 22:15 Follow up: Response: No adverse reaction as6 21:47 Drug: NS 0.9% 500 ml Route: IV; Rate: bolus; Site: right antecubital; as6 23:04 Follow up: Response: No adverse reaction; IV Status: Completed infusion; IV Intake: as6 500ml 23:04 Drug: Ketorolac 15 mg Route: IVP; Site: right antecubital; as6 23:05 Follow up: Response: No adverse reaction as6 23:59 Drug: NS 0.9% 1000 ml Route: IV; Rate: 1000 ml; Site: right antecubital; as6 12/ 01:39 Follow up: Response: No adverse reaction; IV Status: Completed infusion; IV Intake: as6 1000ml Intake: 09/23 23:04 IV: 500ml; Total: 500ml. as6 09/24 01:39 IV: 1000ml; Total: 1500ml. as6 Outcome: 01:23 Discharge ordered by . jr8 01:39 Discharged to home ambulatory, with significant other. as6 01:39 Condition: stable 01:39 Discharge instructions given to patient, significant other, Instructed on discharge instructions, follow up and referral plans. Demonstrated understanding of instructions, follow-up care. 01:40 Patient left the ED. as6 Signatures: Dispatcher [employer] EDMS Alexander Fiore PA PA jr8 Nereyda Nixon, RN RN vg1 Paniauga, Hetal bp1 Slawson, Bladimir, RN RN as6
--- NOTE | 2021-09-24 01:23 | EDPHYS ---
Physician Documentation [facility] Name: Jay Guzman Jr Age: 56 yrs Sex: Male : 1965 Arrival Date: 09/23/2021 Time: 20:02 Bed 20 Private MD: ED Physician Jp Ochoa HPI: 09/23 22:30 This 56 yrs old Male presents to ER via Ambulatory with complaints of Urinary jr8 Retention, Possible Kidney Stone. 22:30 This is a 56-year-old male patient with a history of renal stones that presented to the [facility] emergency room with abdominal pain and decreased urination. Patient stated that he feels like he has another stone. Started back on his tamsulosin, Cipro, nausea medicine, pain medicine prior to arrival. Denies any fever at this time.. 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 - Social history:: Smoking status: Patient denies any tobacco usage or history of. ROS: 22:30 Eyes: Negative for injury, pain, redness, and discharge, ENT: Negative for injury, jr8 pain, and discharge, Neck: Negative for injury, pain, and swelling, Cardiovascular: Negative for chest pain, palpitations, and edema, Respiratory: Negative for shortness of breath, cough, wheezing, and pleuritic chest pain, Back: Negative for injury and pain, MS/Extremity: Negative for injury and deformity, Skin: Negative for injury, rash, and discoloration, Neuro: Negative for headache, weakness, numbness, tingling, and seizure. 22:30 Abdomen/GI: Positive for abdominal pain, Negative for nausea, vomiting, and diarrhea. 22:30 : Positive for small amounts. Exam: 22:30 Constitutional: This is a well developed, well nourished patient who is awake, alert, jr8 and in no acute distress. Cardiovascular: Tachycardic with a normal S1 and S2. No gallops, murmurs, or rubs. Normal PMI, no JVD. No pulse deficits. Respiratory: Lungs have equal breath sounds bilaterally, clear to auscultation and percussion. No rales, rhonchi or wheezes noted. No increased work of breathing, no retractions or nasal flaring. Back: No spinal tenderness. No costovertebral tenderness. Full range of motion. Skin: Warm, dry with normal turgor. Normal color with no rashes, no lesions, and no evidence of cellulitis. MS/ Extremity: Pulses equal, no cyanosis. Neurovascular intact. Full, normal range of motion. Neuro: Awake and alert, GCS 15, oriented to person, place, time, and situation. Cranial nerves II-XII grossly intact. Motor strength 5/5 in all extremities. Sensory grossly intact. 22:30 Abdomen/GI: Inspection: abdomen appears normal, Bowel sounds: active, all quadrants, Palpation: soft, in all quadrants, mild abdominal tenderness, in the suprapubic area, mass, is not appreciated, rebound tenderness, is not appreciated, voluntary guarding, is not appreciated, involuntary guarding, is not appreciated, no appreciated organomegaly, Indicators: McBurney's point is not tender, Cowan's sign is negative, Rovsing's sign is negative. Vital Signs: 20:20 BP 124 / 99; Pulse 125; Resp 20; Temp 97.7; Pulse Ox 99% ; Weight 61.23 kg; Height 5 vg1 ft. 4 in. (162.56 cm); Pain 7/10; 21:54 BP 116 / 81; Pulse 112; Resp 20 S; Pulse Ox 95% on R/A; as6 23:06 BP 122 / 89; Pulse 116; Resp 22 S; Pulse Ox 98% on R/A; as6 1202 00:18 BP 120 / 82; Pulse 118; Resp 16 S; Pulse Ox 97% on R/A; as6 01:20 BP 126 / 86; Pulse 106; Resp 20 S; Pulse Ox 98% on R/A; as6 09/23 20:20 Body Mass Index 23.17 (61.23 kg, 162.56 cm) vg1 [facility]: 09/23 20:41 Patient medically screened. [facility] 22:30 Data reviewed: vital signs, nurses notes, lab test result(s), radiologic studies, CT jr8 scan. Data interpreted: Pulse oximetry: on room air is 95 %. Interpretation: normal. Counseling: I had a detailed discussion with the patient and/or guardian regarding: the historical points, exam findings, and any diagnostic results supporting the discharge/admit diagnosis, lab results, radiology results, the need for outpatient follow up, a urologist, to return to the emergency department if symptoms worsen or persist or if there are any questions or concerns that arise at home. 09/24 01:28 ED course: Heart rate improved. Patient able to make urine. Labs stable. No other acute jr8 findings on CT other than the renal stone on the right side. Patient has plenty of meds from his last visit and will continue to start those back up. Knows to follow-up with urology and to come back if he were to worsening point time.. 09/23 20:56 Order name: Basic Metabolic Panel; Complete Time: 22:30 jr8 09/23 20:56 Order name: CBC with Diff; Complete Time: 21:59 jr8 09/23 20:56 Order name: Hepatic Function; Complete Time: 22:30 jr8 09/23 20:56 Order name: Lipase; Complete Time: 22:30 jr8 09/23 20:56 Order name: Urine Microscopic Only; Complete Time: 23:15 jr8 09/23 21:44 Order name: Urine Dipstick-Ancillary; Complete Time: 21:59 EDMS 09/23 20:41 Order name: Bladder Scanner; Complete Time: 20:57 jr8 09/23 20:56 Order name: IV Saline Lock; Complete Time: 21:44 jr8 09/23 20:56 Order name: CT Stone Protocol; Complete Time: 21:35 jr8 09/23 20:56 Order name: Labs collected and sent; Complete Time: 21:44 jr8 09/23 20:56 Order name: Urine Dipstick-Ancillary (obtain specimen); Complete Time: 21:44 jr8 Administered Medications: 09/23 21:44 Drug: morphine 4 mg Route: IVP; Site: right antecubital; as6 22:15 Follow up: Response: No adverse reaction; Pain is decreased; RASS: Alert and Calm (0) as6 21:44 Drug: Zofran (Ondansetron) 4 mg Route: IVP; Site: right antecubital; as6 22:15 Follow up: Response: No adverse reaction as6 21:47 Drug: NS 0.9% 500 ml Route: IV; Rate: bolus; Site: right antecubital; as6 23:04 Follow up: Response: No adverse reaction; IV Status: Completed infusion; IV Intake: as6 500ml 23:04 Drug: Ketorolac 15 mg Route: IVP; Site: right antecubital; as6 23:05 Follow up: Response: No adverse reaction as6 23:59 Drug: NS 0.9% 1000 ml Route: IV; Rate: 1000 ml; Site: right antecubital; as6 09/24 01:39 Follow up: Response: No adverse reaction; IV Status: Completed infusion; IV Intake: as6 1000ml Disposition: 01:41 Co-signature as Attending Physician, Jp Ochoa MD. pkl Disposition Summary: 09/24/21 01:23 Discharge Ordered Location: Home jr8 Problem: new jr8 Symptoms: have improved jr8 Condition: Stable jr8 Diagnosis - Hydronephrosis with renal and ureteral calculous obstruction jr8 Followup: jr8 - With: Noel Lopez MD - When: 2 - 3 days - Reason: Recheck today's complaints, Continuance of care, Re-evaluation by your physician Discharge Instructions: - Discharge Summary Sheet jr8 - Kidney Stones jr8 Forms: - Medication Reconciliation Form jr8 - Thank You Letter jr8 - Antibiotic Education jr8 - Prescription Opioid Use jr8 Signatures: Dispatcher [employer] Jp Schwab MD MD pkl Alexander Fiore PA PA jr8 Nereyda Nixon RN RN vg1 Bladimir Landon RN RN as6
[2021-09-24 01:59] VITALS: TEMP 97.7
[2021-09-24 02:07] VITALS: BP 126/86; O2SAT 98
== END 2021-09-24 01:40 | disposition home or self-care (01) ==
LOC: ER 19:56
DX: N13.2 Hydronephrosis with renal and ureteral calculous obstruction (principal)
CPT/HCPCS: 96361; 85025; 80048; 36415; 80076; 83690; 76377; 74176; 96375; 96374; 99284; J7030; J2405; 81003; 81015

== ENCOUNTER 2022-03-24 19:07 | Emergency (ER) | payer OTHER ==
[2022-03-24] MEDS ORDERED: ROCURONIUM 50 MG/5 ML VIAL IV ONE (19:08)
[2022-03-24] MEDS ORDERED: ETOMIDATE 20 MG/10 ML VIAL IV ONE ×2 (19:08→19:38)
--- OUTSIDE RECORDS SUMMARY | 2022-03-24 19:10 | XMS REPORT | Continuity of Care Document ---
:1965 Author Organization [facility] t Address [address] [place] [address] Care Team Providers Name Role Phone Unknown Primary Care Physician Unavailable LEXIS Attending Clinician Unavailable Lilliam Pires MD Attending Clinician KAREN Attending Clinician Unavailable JM Attending Clinician Unavailable ROCÍO Attending Clinician Unavailable LELIA Attending Clinician Unavailable MEG Attending Clinician Unavailable CYNDIE Attending Clinician Unavailable LEATHA Attending Clinician Unavailable MD Meghan JULIEN Attending Clinician Unavailable MD HERBERT WEAVER Attending Clinician Unavailable DOMINIC Attending Clinician Unavailable WILY Admitting Clinician Unavailable MD Meghan JULIEN Admitting Clinician Unavailable MEG Admitting Clinician Unavailable MD HERBERT WEAVER Admitting Clinician Unavailable JM Admitting Clinician Unavailable Payers Payer Name Policy Type Policy Number Effective Date Expiration Date [employer] MEDICARE PART A [id number] 2005 AND B 00:00:00 Problems Condition Condition Condition Status Onset Resolution Last Treating Co mments Source Name Details Category Date Date Treatment Clinician Date Obstructiv Obstructiv Disease Active U T e sleep e sleep 03-01 Health apnea apnea 00:00: syndrome syndrome 00 Allergies, Adverse Reactions, Alerts Allergy Allergy Status Severity Reaction(s) Onset Inactive Treating Comm ents Source Name Type Date Date Clinician Pollen Allergy Active - [place] Extract to 03-02 [facility] 00:00: e 00 7 Social History Social Habit Start Date Stop Date Quantity Comments Source History [facility] Health Alcohol Std Drinks History [facility] Alcohol Binge History [facility] Alcohol Comment Alcohol intake 2022-03-02 2022-03-02 [facility] 00:00:00 00:00:00 non-drinker (finding) History SDKS 2022-03-02 2022-03-02 1 [facility] Alcohol Frequency 00:00:00 00:00:00 Sex Ass[birth year] At [birth year] [facility] 00:00:00 00:00:00 Smoking Status Start Date Stop Date Source Never smoked tobacco [facility] Medications Ordered Filled Start Stop Current Ordering Indication Dosage Frequency Signature Comments Components Source Medication Medication Date Date Medication? Clinician (SIG) Name Name atorvastati Yes [facility] n (Lipitor) 5-08 Health 40 MG 00:00: tablet 00 NIFEdipine Yes 30mg Q.5D Take 30 mg U T XL 4-14 by mouth 2 Health (Procardia 00:00: (two) XL) 30 MG 00 times a 24 hr day. tablet pantoprazol Yes 40mg QD Take 40 mg UT e 3-26 by mouth 1 Health (ProtoNix) 00:00: (one) time 40 MG EC 00 each day. tablet Aptiom 800 Yes 1{tbl} QD Take 1 UT MG tablet 3-19 tablet by Healt h 00:00: mouth 1 00 (one) time each day. fluticasone Yes INHALE 1 UT (Flonase) 09 SPRAY INTO Heal th 50 MCG/ACT 00:00: EACH nasal spray 00 NOSTRIL AT BEDTIME metFORMIN Yes 1000mg Take 1,000 UT (Glucophage 2-18 mg by [facility] ) 1000 MG 00:00: mouth tablet 00 every night. ondansetron 2020-10 Yes 4mg Take 4 mg U T (Zofran) 4 0-13 by mouth Healt h MG tablet 00:00: every 12 00 (twelve) hours if needed. Procedures This patient has no known procedures. Encounters Start End Encounter Admission Attending Care Care Encounter Source Date/Time Date/Time Type Type Clinicians Facility Department ID 2022-03-06 Outpatient [facility] [id number] ID 12:24:15 [id number] [facility] 2022-03-04 2022-03-04 Outpatient JACKELYN PIRES [facility] [id number] [place] 00:00:00 00:00:[address] 2022-03-02 2022-03-02 Telephone CARLY Pires [id number] ID 00:00:00 00:00:00 Gennaro SHAH [id number] [facility] [id number] 2022-01-22 2022-01-22 Outpatient MHIE IE [id number] [facility] 13:30:00 13:30:00 14 l Navi 2022-01-21 2022-01-21 Outpatient KAREN, [facility] [id number] [place] 00:00:00 00:00:00 PHYLLIS [address] 2021-11-06 2021-11-06 Outpatient KAREN, [facility] [id number] [place] 00:00:00 00:00:00 PHYLLIS [address] 2021-11-06 2021-11-06 Outpatient [facility] [id number] [place] 00:00:00 00:00:[address] 2021-10-08 2021-10-08 Outpatient JACKELYN PIRES [facility] [id number] [place] 00:00:00 00:00:[address] 2021-09-04 2021-09-04 Outpatient JM, NADEEN [facility] [id number] [place] 00:00:00 00:00:[address] 2021-08-24 2021-08-24 Outpatient JM, NADEEN [facility] [id number] [place] 00:00:00 00:00:[address] 2021-08-21 2021-08-21 Outpatient JM, NADEEN [facility] [id number] [place] 00:00:00 00:00:[address] 2021-08-21 2021-08-21 Outpatient JM, NADEEN [facility] [id number] [place] 00:00:00 00:00:[address] 2021-08-21 2021-08-21 Outpatient JM, NADEEN [facility] [id number] [place] 00:00:00 00:00:[address] 2021-08-21 2021-08-21 Outpatient JM, NADEEN [facility] [id number] [place] 00:00:00 00:00:[address] 2021-08-21 2021-08-21 Outpatient JM, NADEEN [facility] [id number] [place] 00:00:00 00:00:[address] 2021-08-14 2021-08-14 Outpatient ROCÍO, [facility] [id number] [place] 00:00:00 00:00:00 NARA [address] 2021-08-07 2021-08-07 Outpatient KAREN, [facility] [id number] [place] 00:00:00 00:00:00 PHYLLIS [address] 2021-07-24 2021-07-24 Outpatient MHIE MHIE [id number] [place]oria 09:45:00 09:45:00 13 l Navi 2021-07-16 2021-07-16 Outpatient JACKELYN PIRES [facility] [id number] [place] 00:00:00 00:00:[address] 2021-07-10 2021-07-10 Outpatient ALONSO ROWELL [facility] [id number] [place] 00:00:00 00:00:[address] 2021-07-03 2021-07-03 Outpatient KLEBUC, [facility] [id number] [place] 00:00:00 00:00:00 LEVON [address] 2021-07-03 2021-07-03 Outpatient KAREN, [facility] [id number] [place] 00:00:00 00:00:00 PHYLLIS [address] 2021-06-12 2021-06-12 Outpatient MHIE MHIE [id number] [place]oria 09:30:00 09:30:00 12 [place] 2021-05-22 2021-05-22 Outpatient ROCÍO, [facility] [id number] [place] 00:00:00 00:00:00 NARA [address] 2021-03-06 2021-03-06 Outpatient ROCÍO, [facility] [id number] [place] 00:00:00 00:00:00 NARA [address] 2021-02-27 2021-02-27 Outpatient KAREN, [facility] [id number] [place] 00:00:00 00:00:00 PHYLLIS [address] 2021-02-20 2021-02-20 Outpatient NADEEN ONEAL [facility] [id number] [place] 00:00:00 00:00:[address] 2021-01-29 2021-01-29 Outpatient CYNDIE, [facility] [id number] [place] 00:00:00 00:00:00 KEIKOMISAEL [address] 2021-01-15 2021-01-15 Outpatient JACKELYN PIRES [facility] [id number] [place] 00:00:00 00:00:[address] 2021-01-08 2021-01-08 Outpatient [facility] [id number] [place] 00:00:00 00:00:[address] 2021-01-08 2021-01-08 Outpatient LELIAALONSO HERNANDEZ [facility] [id number] [place] 00:00:00 00:00:[address] 2020-12-05 2020-12-05 Outpatient ROCÍO, [facility] [id number] [place] 00:00:00 00:00:00 NARA [address] 2020-11-14 2020-11-14 Outpatient NADEEN ONEAL [facility] [id number] [place] 00:00:00 00:00:[address] 2020-11-12 2020-11-12 Outpatient KAREN, [facility] [id number] [place] 00:00:00 00:00:00 PHYLLIS [address] 2020-11-06 2020-11-06 Outpatient JACKELYN PIRES [facility] [id number] [place] 00:00:00 00:00:[address] 2020-10-11 2020-10-17 Inpatient BIANCA ZHANG [facility] [id number] [place] 00:00:00 00:00:[address] 2020-09-09 2020-09-09 Outpatient ALONSO ROWELL [facility] [id number] [place] 00:00:00 00:00:[address] 2020-09-03 2020-09-03 Outpatient JACKELYN PIRES [facility] [id number] [place] 00:00:00 00:00:[address] 2020-08-29 2020-08-29 Outpatient MHIE MHIE [id number] [place] 09:15:00 09:15:00 10 l Navi 2020-08-29 2020-08-29 Outpatient MHIE MHIE [id number] [place] 09:15:00 09:15:00 11 l Navi 2020-08-12 2020-08-12 Outpatient ROCÍO, [facility] [id number] [place] 00:00:00 00:00:00 NARA [address] 2020-08-07 2020-08-07 Outpatient LELIA, ALONSO [facility] [id number] [place] 00:00:00 00:00:[address] 2020-08-07 2020-08-07 Outpatient KLEBUC, [facility] [id number] [place] 00:00:00 00:00:00 LEVON [address] 2020-08-01 2020-08-01 Outpatient JONES, [facility] [id number] [place] 00:00:00 00:00:00 PHYLLIS [address] 2020-07-21 2020-07-22 Outpatient KLEBUC, [facility] [id number] [place] 00:00:00 00:00:00 LEVON [address] 2020-07-18 2020-07-18 Outpatient KLEBUC, [facility] [id number] [place] 00:00:00 00:00:00 LEVON [address] 2020-07-17 2020-07-17 Outpatient JONES, [facility] [id number] [place] 00:00:00 00:00:00 PHYLLIS [address] 2020-07-15 2020-07-15 Outpatient LELIA, ALONSO [facility] [id number] [place] 00:00:00 00:00:[address] 2020-07-15 2020-07-15 Outpatient KLEBUC, [facility] [id number] [place] 00:00:00 00:00:00 LEVON [address] 2020-07-14 2020-07-14 Outpatient JONES, [facility] [id number] [place] 00:00:00 00:00:00 PHYLLIS [address] 2020-07-08 2020-07-08 Outpatient NADEEN ONEAL [facility] [id number] [place] 00:00:00 00:00:[address] 2020-06-20 2020-06-20 Outpatient JONES, [facility] [id number] [place] 00:00:00 00:00:00 PHYLLIS [address] 2020-05-22 2020-05-22 Outpatient KLEBUC, [facility] [id number] [place] 00:00:00 00:00:00 LEVON [address] 2020-05-20 2020-05-20 Outpatient LELIA, ALONSO [facility] [id number] [place] 00:00:00 00:00:[address] 2020-05-20 2020-05-20 Outpatient KLEBUC, [facility] [id number] [place] 00:00:00 00:00:00 LEVON [address] 2020-05-19 2020-05-19 Outpatient KAREN, [facility] [id number] [place] 00:00:00 00:00:00 PHYLLIS [address] 2020-05-19 2020-05-19 Outpatient KAREN, [facility] [id number] [place] 00:00:00 00:00:00 PHYLLIS [address] 2020-05-02 2020-05-02 Outpatient CYNDIE, [facility] [id number] [place] 00:00:00 00:00:00 CECILIA [address] 2020-05-02 2020-05-02 Emergency DOMINIC, [facility] [id number] [place] 00:00:00 00:00:00 GUILLE [address] 2020-04-30 2020-04-30 Outpatient ROCÍO, [facility] [id number] [place] 00:00:00 00:00:00 NARA [address] 2020-03-28 2020-03-28 Outpatient NADEEN ONEAL [facility] [id number] [place] 00:00:00 00:00:[address] 2020-02-29 2020-02-29 Outpatient RIANIE JACQUES [id number] [place] 09:15:00 09:15:00 [place] 2020-02-29 2020-02-29 Outpatient KLEBUC, [facility] [id number] [place] 00:00:00 00:00:00 LEVON [address] 2020-02-27 2020-02-27 Outpatient JACKELYN PIRES [facility] [id number] [place] 00:00:00 00:00:[address] 2020-02-08 2020-02-08 Outpatient ALONSO ROWELL [facility] [id number] [place] 00:00:00 00:00:[address] 2020-02-06 2020-02-06 Outpatient LELIAALONSO HERNANDEZ [facility] [id number] [place] 00:00:00 00:00:[address] 2020-02-05 2020-02-05 Outpatient JM, NADEEN [facility] [id number] [place] 00:00:00 00:00:[address] 2020-01-24 2020-01-24 Outpatient JACKELYN PIRES [facility] [id number] [place] 00:00:00 00:00:[address] 2020-01-17 2020-01-17 Outpatient JM, NADEEN [facility] [id number] [place] 00:00:00 00:00:[address] 2019-12-15 2019-12-15 Outpatient LEXIS, [facility] [id number] [place] [address] 00:00:00 00:00:00 GENNARO [address] 2019-12-07 2019-12-07 Outpatient JM, NADEEN [facility] [id number] [place] 00:00:00 00:00:[address] 2019-11-09 2019-11-09 Outpatient MHIE MHIE [id number] [place] 09:30:00 09:30:00 03 [place] 2019-10-04 2019-10-08 Inpatient JM, NADEEN [facility] [id number] [place] 00:00:00 00:00:[address] 2019-10-03 2019-10-03 Outpatient JM, NADEEN [facility] [id number] [place] 00:00:00 00:00:[address] 2019-08-07 2019-08-07 Outpatient MHIE MHIE [id number] [place] 11:00:00 11:00:00 08 l Navi 2019-07-27 2019-07-27 Outpatient JONES, [facility] [id number] [place] 00:00:00 00:00:00 PHYLLIS [address] 2019-07-27 2019-07-27 Outpatient JONES, [facility] [id number] [place] 00:00:00 00:00:00 PHYLLIS [address] 2019-07-27 2019-07-27 Outpatient KAREN [facility] [id number] [place] 00:00:00 00:00:00 PHYLLIS [address] 2019-07-20 2019-07-20 Outpatient JACKELYN PIRES [facility] [id number] [place] 00:00:00 00:00:00 [address] [facility] 2019-07-20 2019-07-20 Outpatient JACKELYN PIRES [facility] [id number] [place] 00:00:00 00:00:00 [address] [facility] 2019-07-13 2019-07-13 Outpatient JACKELYN PIRES [facility] [id number] [place] 00:00:00 00:00:00 857 [facility] 2019-05-08 2019-05-08 Outpatient MHIE IE [id number] [facility] 11:00:00 11:00:00 07 l Navi 2019-03-20 2019-03-20 Outpatient MHIE IE [id number] [place] 11:00:00 11:00:00 06 l Navi 2018-12-19 2018-12-19 Outpatient MHIE IE [id number] [facility] 11:00:00 11:00:00 05 [place] 2018-12-19 2018-12-19 Outpatient IE IE [id number] [facility] 11:00:00 11:00:00 04 l Navi 2018-11-10 2018-11-10 Outpatient MHIE IE [id number] [facility] 09:15:00 09:15:00 02 [place] 2018-07-07 2018-07-07 Outpatient MHIE IE [id number] [facility] 09:15:00 09:15:00 01 [place] 2017-12-30 2017-12-30 Outpatient IE IE [id number] [facility] 09:30:00 09:30:00 00 layton [place] Results Test Description Test Time Test Comments Results Result Comments Source SARS-CoV-2 (COVID-19) RNA [Presence] in Respiratory sp ecimen by 2020-10-12 18:13:47 SOUMYA with probe detection Test Item Value Reference Range Interpretation Comme nts SARS-CoV-2 (COVID-19) RNA [Presence] in Respiratory Not detected No t-Detected specimen by SOUMYA with probe detection (test code = 17220-1) SARS-CoV-2 (COVID-19) RNA [Presence] in Respiratory specimen by SOUMYA with probe [id number] 23:48:50 Test Item Value Reference Range Interpretation Comments SARS-CoV-2 (COVID-19) RNA Not detected Not-Detected [Presence] in Respiratory specimen by SOUMYA with probe detection (test code = 72023-2) SARS-CoV-2 (COVID-19) RNA [Presence] in Respiratory specimen by SOUMYA with probe [id number] 17:40:52 Test Item Value Reference Range Interpretation Comments SARS-CoV-2 (COVID-19) RNA Not detected Not-Detected [Presence] in Respiratory specimen by SOUMYA with probe detection (test code = 94468-8)
[2022-03-24] MEDS ORDERED: NA CHLORIDE 0.9% 1,000 ML ONE ×2 (19:35→20:00)
[2022-03-24] MEDS ORDERED: propofoL 1,000 MG/100 ML VIAL IV ONE (19:35)
[2022-03-24] MEDS ORDERED: RSI MEDICATION KIT IV ONE (19:35)
[2022-03-24 19:54] LABS: Absolute Lymphocytes (CBC) 1.1 K/uL (0.7-4.9); Hematocrit 51.7 % (39.6-49.0); MPV 8.6 fL (7.6-11.3); RBC Red Blood Cell Count 5.66 M/uL (4.33-5.43)
[2022-03-24 20:01] LABS: Protime INR 1.33
[2022-03-24] MEDS ORDERED: NOREPINEPHRINE 4mg/D5W 250mL 4 MG/250 ML BAG IV ONE (20:01)
[2022-03-24 20:12] LABS: Urine Blood 2+ (Negative); Urine Glucose Negative (Negative); Urine Protein 2+ (Negative); Urine Specific Gravity 1.025 (1.005-1.030); Urine pH 5.5 (5.0-7.0)
[2022-03-24 20:13] LABS: Albumin 4.6 g/dL (3.4-5.0); Bilirubin Direct 0.1 mg/dL (0-0.2); Bilirubin Total 0.4 mg/dL (0.2-1.0); Potassium 3.7 mmol/L (3.5-5.1); Protein, Total 9.1 g/dL (6.4-8.2)
[2022-03-24 20:17] LABS: Arterial Blood Carboxyhemoglob 0.5 % (0-1.5); Blood Gas Oxyhemoglobin 93.9 % (94-97); Blood O2 Saturation 95.5 % (92-98.5)
[2022-03-24 20:32] LABS: Barbiturates NEGATIVE (NEGATIVE); Benzodiazepines NEGATIVE (NEGATIVE); Cocaine NEGATIVE (NEGATIVE); METHAMPHETAM NEGATIVE (NEGATIVE); Methadone NEGATIVE (NEGATIVE); Opiates NEGATIVE (NEGATIVE); Phencyclidine NEGATIVE (NEGATIVE); THC Cannibis NEGATIVE (NEGATIVE)
[2022-03-24] MEDS ORDERED: LEVETIRACETAM 500 MG/5 ML VIAL IV ONE (20:41)
[2022-03-24] MEDS ORDERED: NA CHLORIDE 0.9% 100 ML ONE ×2 (20:41→21:38)
--- NOTE | 2022-03-24 20:43 | RAD REPORT ---
EXAM DESCRIPTION: CT - CTHCSPWOC - 03/24/2022 8:28 pm CLINICAL HISTORY: Altered mental Status COMPARISON: Head C Spine Mpr Wo Con dated 10/26/2020; Head C Spine Mpr Wo Con dated 12/29/2019 TECHNIQUE: Axial 5 mm thick images of the head were obtained. Axial 2 mm thick images of the cervical spine were obtained with sagittal and coronal reconstruction images generated and reviewed. All CT scans are performed using dose optimization technique as appropriate and may include automated exposure control or mA/KV adjustment according to patient size. FINDINGS: CT HEAD WITHOUT CONTRAST: No acute hemorrhage, hydrocephalus or extra-axial collection is identified.No areas of brain edema or midline shift. Significant decrease in size of the ventricles compared with prior. The ventricles ar e nearer to slit-like. Encephalomalacia in the left temporal lobe. The paranasal sinuses and mastoids are clear.The calvarium is intact. Right parietal ventriculostomy. CT CERVICAL SPINE WITHOUT CONTRAST: No fracture or subluxation.No prevertebral soft tissues swelling is identified. Right upper lobe airs pace disease likely representing aspiration. Right IJ approach central line. Endotracheal tube. Enter ic tube. IMPRESSION: 1. Increased decompression of the ventricles compared with 10/26/20 could represent over-s hunting. 2. No acute fracture or malalignment of the cervical spine. 3. Airspace disease in the right upper lobe concerning for aspiration.
--- NOTE | 2022-03-24 20:54 | RAD REPORT ---
EXAM DESCRIPTION: RAD - Chest Single View - 03/24/2022 8:41 pm CLINICAL HISTORY: SOB COMPARISON: Chest Single View dated 10/11/2020; Chest Single View dated 10/11/2020; Chest Single Vie w dated 12/29/2019 FINDINGS: Lines: Endotracheal tube at the aortic arch in satisfactory position. NG tube in stomach. ORE DRYER shunt tubing right hemithorax. Lungs: Hazy airspace disease in the right mid and right upper lobe. Pleural: No significant pleural effusions or pneumothorax. Cardiac: The heart size is within normal limits. Bones: No acute fractures. Other: IMPRESSION: Endotracheal tube and NG tube in satisfactory position. Airspace disease in the right felicity ng concerning for aspiration.
[2022-03-24 21:03] LABS: Phenytoin (Dilantin) Level 0.7 ug/mL (10.0-20.0)
[2022-03-24 21:05] LABS: Valproic Acid (Depakene) Level < 3.0 ug/mL (50-100)
[2022-03-24] MEDS ORDERED: PIPERACIL/TAZO 3.375 GM VIAL IV ONE (21:38)
[2022-03-24] MEDS ORDERED: CLINDAMYCIN 900MG/D5W 900 MG/50 ML IVPB IV ONE (21:38)
[2022-03-24 21:39] LABS: Creatine Phosphokinase 8953 U/L (39-308)
--- NOTE | 2022-03-24 21:51 | EDPHYS ---
Physician Documentation [facility] Name: Jay Guzman Jr Age: 56 yrs Sex: Male : 1965 Arrival Date: 03/24/2022 Time: 19:08 Bed 8 Private MD: ED Physician Aamir Stiles HPI: 03/24 19:15 This 56 yrs old Male presents to ER via EMS with complaints of Seizure. mh7 19:15 The patient presents with decreased mental status, decreased responsiveness. mh7 19:15 Onset: The symptoms/episode began/occurred today, at an unknown time. Possible causes: mh7 seizure, the patient has a known seizure history. Associated signs and symptoms: The patient has no apparent associated signs or symptoms. Current symptoms: In the emergency department the patient's symptoms are unchanged from the initial presentation, despite EMS interventions. 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 According to EMS, patient's found him on the floor at home unresponsive with unknown downtime. He has a h/o seizure disorder and EMS witnessed a seizure en route to hospital and gave Ativan.. 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 - Social history:: Smoking status: unknown. ROS: 19:15 Unable to obtain ROS due to altered mental status. 7 Exam: 19:15 Head/Face: Normocephalic, atraumatic. Neck: Trachea midline, no thyromegaly or masses mh7 palpated, and no cervical lymphadenopathy. Supple, full range of motion without nuchal rigidity, or vertebral point tenderness. No Meningismus. Chest/axilla: Normal chest wall appearance and motion. Nontender with no deformity. No lesions are appreciated. 19:15 Abdomen/GI: Soft, non-tender, with normal bowel sounds. No distension or tympany. No guarding or rebound. No evidence of tenderness throughout. Back: No spinal tenderness. No costovertebral tenderness. Full range of motion. 19:15 Constitutional: The patient appears in obvious distress, severely distressed, obviously ill, unresponsive, eyes open 19:15 Cardiovascular: Rate: tachycardic, Rhythm: regular, Pulses: no pulse deficits are appreciated, Heart sounds: normal, normal S1and S2, Edema: is not appreciated, JVD: is not appreciated. 19:15 Respiratory: severe repiratory distress is noted, Respirations: tachypnea, that is moderate, Breath sounds: rhonchi, that are moderate, are scattered. 19:15 Musculoskeletal/extremity: Extremities: no traumatic findings, not moving extremities. 19:15 Skin: covered in stool. 19:15 Neuro: Orientation: unable to test, Unresponsive, Mentation: unable to test, unresponsive, Memory: unable to test, unresponsive, Cranial nerves: unable to test, unresponsive, Cerebellar function: unable to test, unresponsive, Motor: no spontaneous movement, Sensation: no response to any stmuli, Gait: not tested. seizure activity, is not displayed by the patient. Vital Signs: 19:08 BP 79 / 56; Pulse 131; Resp 31; Pulse Ox 90% on 15% Non-rebreather mask; Weight 72.57 as6 kg; 19:30 BP 85 / 68; Pulse 131; Resp 30; Pulse Ox 91% on Non-rebreather mask; kd3 19:36 BP 88 / 47; Pulse 127; Resp 25; Pulse Ox 96% on Non-rebreather mask; kd3 19:40 BP 76 / 61; Pulse 144; Resp 18; Pulse Ox 88% on Non-rebreather mask; kd3 19:50 BP 143 / 101; Pulse 135; Resp 19; Pulse Ox 98% on 70% FiO2 ETT vent; kd3 20:10 BP 133 / 95; Pulse 133; Resp 21; Temp 98.2; Pulse Ox 99% on 70% FiO2 ETT vent; kd3 20:20 BP 115 / 66; Pulse 128; Resp 26; Temp 98.1(C); Pulse Ox 99% on 70% FiO2 ETT vent; kd3 21:08 BP 110 / 87; Pulse 124; Resp 25; Temp 97.9(C); Pulse Ox 99% on 70% FiO2 ETT vent; kd3 21:32 BP 97 / 65; Pulse 124; Resp 24 A; Pulse Ox 98% on ETT vent; tw5 21:52 BP 65 / 48; Pulse 116; Resp 19; Pulse Ox 99% ; kd3 22:20 BP 96 / 81; Pulse 116; Resp 18 A; Temp 97.8(C); Pulse Ox 100% on 75% FiO2 ETT vent; as6 22:48 BP 118 / 75; Pulse 124; Resp 19 A; Temp 97.2(C); Pulse Ox 99% on 75% FiO2 ETT vent; as6 23:26 BP 96 / 67; Pulse 122; Resp 26; Pulse Ox 98% on ETT vent; tw5 23:59 BP 83 / 61; Pulse 122; Resp 19; Temp 98.2(C); Pulse Ox 98% on 75% FiO2 ETT vent; kd3 /02 00:30 BP 89 / 67; Pulse 122; Resp 25 A; Temp 98.7(C); Pulse Ox 97% on 75% FiO2 ETT vent; as6 00:57 BP 96 / 76; Pulse 123; Resp 25 A; Temp 98.9(C); Pulse Ox 98% on 75% FiO2 ETT vent; as6 Cherry Log Coma Score: 03/24 19:10 Eye Response: to pain(2). Verbal Response: none(1). Motor Response: none(1). Total: 4. as6 21:08 Eye Response: to pain(2). Verbal Response: incomprehensible(2). Motor Response: kd3 none(1). Modifying Factors: Intubated. Total: 5. Procedures: 19:35 Intubation: Ventilated with 100% NRB prior to procedure. O2 saturation prior to mh7 procedure was 93 %. Intubated orally using # 3 Steve blade with 7.5 mm ETT. was successful on first attempt. Ventilated with Ambu bag. ventilator. Cricoid pressure applied during procedure. Tube secured with ETT curry at right side of mouth measured 22 cm at lip. 20:00 Central Line: the site was prepped with Betadine, in sterile fashion, a triple lumen mh7 catheter was inserted, in the right femoral vein, in 1 attempts. placement was verified, by blood return, the site was dressed with using sterile technique, the patient tolerated the procedure, well. MDM: 21:47 Differential Diagnosis: CVA, electrolyte abnormality, alcohol intoxication, mh7 hypoglycemia, intracranial bleed, pneumonia. Data reviewed: vital signs, nurses notes, EMS record, lab test result(s), cardiac enzymes, CBC, drug level(s), acetaminophen, alcohol, salicylate, electrolytes, urinalysis, urine drug screen, EKG, radiologic studies, CT scan, plain films. Data interpreted: Pulse oximetry: on ventilator is 99 %. Interpretation: acceptable. Counseling: I had a detailed discussion with the patient and/or guardian regarding: the historical points, exam findings, and any diagnostic results supporting the discharge/admit diagnosis, lab results, radiology results, the need for further work-up and treatment in the hospital. Response to treatment: the patient's symptoms have mildly improved after treatment. 21:50 Patient medically screened. [facility] 03/25 00:22 ED course: Family requested transfer to [facility] for continuity of care with his [facility] doctors but they had no beds available. 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 Family then gave permission to try transfer to [facility]. Discussed with Dr. Hernandez who accepted patient for transfer to [facility].. 03/24 19:39 Order name: Glucose, Ancillary Testing; Complete Time: 20:06 [facility] 03/24 19:42 Order name: Basic Metabolic Panel; Complete Time: 20:32 [facility] 03/24 19:42 Order name: CBC with Diff; Complete Time: 20:06 [facility] 03/24 19:42 Order name: LFT's; Complete Time: 20:32 [facility] 03/24 19:42 Order name: Magnesium; Complete Time: 20:32 [facility] 03/24 19:42 Order name: NT PRO-BNP; Complete Time: 20:32 [facility] 03/24 19:42 Order name: PT-INR; Complete Time: 20:06 [facility] 03/24 19:42 Order name: Troponin HS; Complete Time: 20:32 [facility] 03/24 19:44 Order name: ETOH Level; Complete Time: 20:55 [facility] 03/24 19:44 Order name: UDS; Complete Time: 20:32 [facility] 03/24 19:44 Order name: Acetaminophen; Complete Time: 21:46 [facility] 03/24 19:44 Order name: Salicylate; Complete Time: 21:09 [facility] 03/24 19:44 Order name: Blood Culture Adult (2) [facility] 03/24 19:44 Order name: Lactate; Complete Time: 21:35 [facility] 03/24 19:42 Order name: XRAY Chest (1 view); Complete Time: 20:55 [facility] 03/24 19:43 Order name: CT Head C Spine; Complete Time: 20:55 [facility] 03/24 19:44 Order name: CPK; Complete Time: 21:46 [facility] 03/24 19:44 Order name: Dilantin; Complete Time: 21:46 [facility] 03/24 19:44 Order name: Depakote; Complete Time: 21:46 [facility] 03/24 19:44 Order name: Arterial Blood Gas; Complete Time: 21:09 [facility] 03/24 19:45 Order name: AMMONIA; Complete Time: 21:09 [facility] 03/24 19:45 Order name: Procalcitonin; Complete Time: 21:35 [facility] 03/24 19:46 Order name: COVID-19 SARS RT PCR (Document "Date of Onset" if Symptomatic); Complete [facility] Time: 21:35 03/24 19:46 Order name: Influenza Screen (a \\T\\ B); Complete Time: 21:03 [facility] 03/24 20:12 Order name: Urine Dipstick-Ancillary; Complete Time: 20:15 [facility] 03/25 00:36 Order name: ABG Arterial Blood Gas [facility] 03/25 00:37 Order name: Lactate Sepsis 2 HR Follow-up [facility] 03/24 19:42 Order name: EKG; Complete Time: 19:43 [facility] 03/24 19:42 Order name: Cardiac monitoring; Complete Time: 20:02 [facility] 03/24 19:42 Order name: EKG - Nurse/Tech; Complete Time: 20:01 [facility] 03/24 19:42 Order name: IV Saline Lock; Complete Time: 20:02 [facility] 03/24 19:42 Order name: Labs collected and sent; Complete Time: 20:02 [facility] 03/24 19:42 Order name: O2 Per Protocol; Complete Time: 20:02 [facility] 03/24 19:42 Order name: O2 Sat Monitoring; Complete Time: 20:02 [facility] 03/24 19:44 Order name: Urine Dipstick-Ancillary (obtain specimen); Complete Time: 20:12 [facility] 03/24 19:44 Order name: Ellis; Complete Time: 20:01 [facility] 03/24 19:44 Order name: NG Tube; Complete Time: 20:01 mh7 Administered Medications: 03/24 19:26 Drug: NS 0.9% 1000 ml Route: IV; Rate: 1 bolus; Site: right antecubital; 03/25 01:10 Follow up: Response: No adverse reaction; IV Status: Completed infusion; IV Intake: as6 1000ml 03/24 19:38 Drug: Etomidate 30 mg Route: IVP; Site: left antecubital; 03/25 01:11 Follow up: Response: No adverse reaction 03/24 19:38 Drug: Rocuronium 50 mg Route: IVP; Site: left antecubital; 03/25 01:11 Follow up: Response: No adverse reaction 03/24 21:01 Drug: Keppra (levETIRAcetam) 1000 mg Route: IV; Rate: per protocol; Site: right kd3 antecubital; 03/25 01:11 Follow up: Response: No adverse reaction; IV Status: Completed infusion; IV Intake: as6 100ml 03/24 21:39 Drug: Clindamycin 900 mg Route: IVPB; Infused Over: 30 mins; Site: right antecubital; kd3 21:51 Follow up: Response: No adverse reaction; IV Status: Completed infusion kd3 21:40 Drug: Zosyn (piperacillin-tazobactam) 3.375 grams Route: IVPB; Infused Over: 60 mins; kd3 Site: left antecubital; 21:51 Follow up: Response: No adverse reaction; IV Status: Completed infusion kd3 21:52 Drug: Levophed (norepinephrine) 5 mcg/min Route: IV; Rate: calculated rate; Site: right kd3 femoral; 03/25 01:11 Follow up: IV Status: Infusion continued upon transfer 03/24 22:07 Drug: Midazolam 2 mg Route: IVP; Site: right femoral; as03/25 01:12 Follow up: Response: No adverse reaction 03/24 22:35 Drug: Lovenox (enoxaparin) 1 mg/kg Route: Sub-Q; Site: right lower abdomen; kd3 03/25 01:11 Follow up: Response: No adverse reaction 03/24 22:36 Drug: Propofol 5 mcg/kg/min Route: IV; Rate: calculated rate; Site: right femoral; as6 22:39 Drug: Propofol 5 mcg/kg/min Route: IV; Rate: calculated rate; Site: right femoral; as6 03/25 01:12 Follow up: IV Status: Infusion continued upon transfer as6 Disposition Summary: 03/25/22 00:22 Transfer Ordered Transfer Location: [facility] mh7 Reason: Higher level of care mh7 Condition: Critical(03/25/22 00:22) mh7 Problem: new(03/25/22 00:22) mh7 Symptoms: have improved(03/25/22 00:22) mh7 Accepting Physician: Dr. 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(03/25/22 00:22) mh7 - Subsequent non-ST elevation (NSTEMI) myocardial infarction(03/25/22 00:22) mh7 - Aspiration Pneumonia mh7 - Acute respiratory failure(03/25/22 00:22) 7 Forms: - Medication Reconciliation Form mh7 - SBAR form mh7 Signatures: Dispatcher [employer] EDMS Aamir Stiles MD MD mh7 Bladimir Landon RN RN as6 Celeste Matamoros RN RN kd3 Moraima Alexis PA PA sb3 Corrections: (The following items were deleted from the chart) 00:19 03/24 21:50 Inpatient Admission 7 mh7 03/25 00:03/24 21:50 Gilberto Solano 7 mh7 03/25 00:03/24 21:50 Intensive Care Unit mh7 mh7 03/25 00:03/24 21:50 Critical mh7 mh7 03/25 00:03/24 21:50 new mh7 mh7 03/25 00:03/24 21:50 have improved mh7 mh7 03/25 00:03/24 21:50 Standard mh7 mh7 / 00:03/24 21:50 mh7 mh7 03/25 00:03/24 21:50 Altered mental status, unspecified mh7 mh7 03/25 00:03/24 21:50 Subsequent non-ST elevation (NSTEMI) myocardial infarction [place] [id number] 03/25 00:03/24 21:50 Other seizures [place] [id number] 03/25 00:03/24 21:50 Aspiration Pneumonia [place] [id number] 03/25 00:03/24 21:50 Acute respiratory failure [place] [id number] 03/25 01:18 00:22 Dr. Hernandez 7 as6
--- NOTE | 2022-03-24 21:51 | ER ---
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 He had tw5 another seizure in route. We gave him 2 mg Ativan IVP. Our first blood pressure was 80/40. We started a fluid bolus his last BP was 90/50. His BGL 115. ". 19:09 Method Of Arrival: EMS: [facility] tw5 19:09 Acuity: JOMAR 2 tw5 21:10 Coronavirus screen: unknown. Ebola Screen: No symptoms or risks identified at this kd3 time. Initial Sepsis Screen: Does the patient meet any 2 criteria? No. Patient's initial sepsis screen is negative. Does the patient have a suspected source of infection? No. Patient's initial sepsis screen is negative. Risk Assessment: Do you want to hurt yourself or someone else? Patient reports no desire to harm self or others. Risk Assessment: Do you want to hurt yourself or someone else? Unable to obtain. Onset of symptoms was March 24, 2022. Triage Assessment: 21:08 General: Appears unresponsive. intubated/ sedated . Behavior is unresponsive. Pain: kd3 Unable to use pain scale. Patient is unresponsive. 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 - Social history:: Smoking status: unknown. Screenin:30 Abuse screen: Denies threats or abuse. Denies injuries from another. Nutritional kd3 screening: No deficits noted. Tuberculosis screening: No symptoms or risk factors identified. Fall Risk IV access (20 points). Assessment: 19:30 General:. Pain: Unable to use pain scale. Patient is unresponsive. kd3 19:30 Neuro: Level of Consciousness is post ictal, unresponsive. Cardiovascular: Capillary kd3 refill is sluggish. Respiratory: Airway is patent Trachea midline Respiratory effort is labored, with retractions, weak. EENT:. 21:05 Respiratory: Ventilator assessment: ET Tube: 7.5 Ventilator Mode: Assist Control (AC) as6 Tidal Volume: 410 Respiratory Rate: 18 FiO2: 70 PEEP: 0 HOB > 30 degrees. 03/25 00:03 Reassessment: PT properly sedated on 25 mcg of propofol. 02 stat 98%. kd3 Vital Signs: 03/24 19:08 BP 79 / 56; Pulse 131; Resp 31; Pulse Ox 90% on 15% Non-rebreather mask; Weight 72.57 as6 kg; 19:30 BP 85 / 68; Pulse 131; Resp 30; Pulse Ox 91% on Non-rebreather mask; kd3 19:36 BP 88 / 47; Pulse 127; Resp 25; Pulse Ox 96% on Non-rebreather mask; kd3 19:40 BP 76 / 61; Pulse 144; Resp 18; Pulse Ox 88% on Non-rebreather mask; kd3 19:50 BP 143 / 101; Pulse 135; Resp 19; Pulse Ox 98% on 70% FiO2 ETT vent; kd3 20:10 BP 133 / 95; Pulse 133; Resp 21; Temp 98.2; Pulse Ox 99% on 70% FiO2 ETT vent; kd3 20:20 BP 115 / 66; Pulse 128; Resp 26; Temp 98.1(C); Pulse Ox 99% on 70% FiO2 ETT vent; kd3 21:08 BP 110 / 87; Pulse 124; Resp 25; Temp 97.9(C); Pulse Ox 99% on 70% FiO2 ETT vent; kd3 21:32 BP 97 / 65; Pulse 124; Resp 24 A; Pulse Ox 98% on ETT vent; tw5 21:52 BP 65 / 48; Pulse 116; Resp 19; Pulse Ox 99% ; kd3 22:20 BP 96 / 81; Pulse 116; Resp 18 A; Temp 97.8(C); Pulse Ox 100% on 75% FiO2 ETT vent; as6 22:48 BP 118 / 75; Pulse 124; Resp 19 A; Temp 97.2(C); Pulse Ox 99% on 75% FiO2 ETT vent; as6 23:26 BP 96 / 67; Pulse 122; Resp 26; Pulse Ox 98% on ETT vent; tw5 23:59 BP 83 / 61; Pulse 122; Resp 19; Temp 98.2(C); Pulse Ox 98% on 75% FiO2 ETT vent; kd3 02 00:30 BP 89 / 67; Pulse 122; Resp 25 A; Temp 98.7(C); Pulse Ox 97% on 75% FiO2 ETT vent; as6 00:57 BP 96 / 76; Pulse 123; Resp 25 A; Temp 98.9(C); Pulse Ox 98% on 75% FiO2 ETT vent; as6 [place] Coma Score: 03/24 19:10 Eye Response: to pain(2). Verbal Response: none(1). Motor Response: none(1). Total: 4. as6 21:08 Eye Response: to pain(2). Verbal Response: incomprehensible(2). Motor Response: kd3 none(1). Modifying Factors: Intubated. Total: 5. ED Course: 19:08 Patient arrived in ED. tw5 19:08 Maintain EMS IV. Dressing intact. Good blood return noted. Site clean \\T\\ dry. Gauge \\T\\ as 6 site: 20g LAC. 19:11 Aamir Stiles MD is Attending Physician. 7 19:11 Triage completed. tw5 19:23 Inserted saline lock: 18 gauge in right antecubital area, using aseptic technique. as6 Blood collected. 19:30 Patient has correct armband on for positive identification. Placed in gown. Bed in low kd3 position. Side rails up X2. Seizure precautions initiated. Client placed on continuous cardiac and pulse oximetry monitoring. NIBP monitoring applied. quality assurance monitor final on. Pulse ox on. NIBP on. Noise minimized. 19:40 Assisted provider with intubation using 7.5 mm ETT via oral route. ET tube secured at as6 22cm at the lips. Set up intubation tray. Intubated by Aamir Stiles MD Placement verified by CO2 detector w/ + color change, auscultating bilateral breath sounds, CXR, Patient tolerated well. 19:42 NGT: inserted 16 Fr. other oral verified placement of air over stomach, verified return as6 of gastric contents, Placement verified by X-ray, to intermittent suction. Returned gastric contents. Patient tolerated well. 19:47 Ellis cath inserted, using sterile technique, 16 Fr., by ED staff, balloon inflated, to as6 gravity drainage, urine specimen collected. 19:58 Assisted provider with central line placement. Set up central line tray. Triple lumen as6 line placed in right femoral. Line placed by Aamir Stiles MD Placement verified by blood return, Dressed with Tegaderm, Blood was collected. Patient tolerated well. 19:59 Bladimir Landon, RN is Primary Nurse. as6 20:01 Arm band placed on. as6 20:29 CT Head C Spine In Process Unspecified. EDMS 20:43 XRAY Chest (1 view) In Process Unspecified. EDMS 21:32 initiated a transfer with Margarito from [facility]. [facility] denied due [facility] to ICU capacity. 21:38 Notified ED physician of a critical lab result(s). cpk [id number]. tw5 21:49 Gilberto Solano is Hospitalizing Provider. [facility] 23:25 initiated a transfer with Shannon from [facility]. mw2 03/25 00:13 administrative approval given by Shannon Arana/ patient has been accepted to [address] [address] bed 1/ Dr. Hernandez accepted the patient in transfer/report to be called to [phone]. 00:22 [facility] ETA 30 minutes. mw2 01:13 Patient transferred, IV remains in place. as6 Administered Medications: 03/24 19:26 Drug: NS 0.9% 1000 ml Route: IV; Rate: 1 bolus; Site: right antecubital; as6 03/25 01:10 Follow up: Response: No adverse reaction; IV Status: Completed infusion; IV Intake: as6 1000ml 03/24 19:38 Drug: Etomidate 30 mg Route: IVP; Site: left antecubital; as6 03/25 01:11 Follow up: Response: No adverse reaction as6 03/24 19:38 Drug: Rocuronium 50 mg Route: IVP; Site: left antecubital; as6 03/25 01:11 Follow up: Response: No adverse reaction as6 03/24 21:01 Drug: Keppra (levETIRAcetam) 1000 mg Route: IV; Rate: per protocol; Site: right kd3 antecubital; 03/25 01:11 Follow up: Response: No adverse reaction; IV Status: Completed infusion; IV Intake: as6 100ml 03/24 21:39 Drug: Clindamycin 900 mg Route: IVPB; Infused Over: 30 mins; Site: right antecubital; kd3 21:51 Follow up: Response: No adverse reaction; IV Status: Completed infusion kd3 21:40 Drug: Zosyn (piperacillin-tazobactam) 3.375 grams Route: IVPB; Infused Over: 60 mins; kd3 Site: left antecubital; 21:51 Follow up: Response: No adverse reaction; IV Status: Completed infusion kd3 21:52 Drug: Levophed (norepinephrine) 5 mcg/min Route: IV; Rate: calculated rate; Site: right kd3 femoral; 03/25 01:11 Follow up: IV Status: Infusion continued upon transfer as6 03/24 22:07 Drug: Midazolam 2 mg Route: IVP; Site: right femoral; as6 03/25 01:12 Follow up: Response: No adverse reaction as6 03/24 22:35 Drug: Lovenox (enoxaparin) 1 mg/kg Route: Sub-Q; Site: right lower abdomen; kd3 03/25 01:11 Follow up: Response: No adverse reaction as6 03/24 22:36 Drug: Propofol 5 mcg/kg/min Route: IV; Rate: calculated rate; Site: right femoral; as6 22:39 Drug: Propofol 5 mcg/kg/min Route: IV; Rate: calculated rate; Site: right femoral; as6 03/25 01:12 Follow up: IV Status: Infusion continued upon transfer as6 Medication: 03/24 19:30 VIS not applicable for this client. kd3 Intake: 03/25 01:10 IV: 1000ml; Total: 1000ml. as6 01:11 IV: 100ml; Total: 1100ml. as6 Outcome: 03/24 21:50 Decision to Hospitalize by Provider. 7 03/25 00:22 ER care complete, transfer ordered by . 7 01:13 Transferred by helicopter to [facility], Transfer form completed. as6 X-rays sent w/ patient. 01:13 critical 01:13 Instructed on the need for transfer. 01:18 Patient left the ED. as6 Signatures: Dispatcher [employer] EDFer Maurer mw2 Aamir Stiles MD MD mh7 Tessa Pineda tw5 Bladimir Landon RN RN as6 Celeste Matamoros RN RN kd3 Corrections: (The following items were deleted from the chart) 03/24 21:07 21:03 BP 143 / 101; Pulse 135bpm; Resp 19bpm; Pulse Ox 98% FiO2 70% vent; kd3 kd3 21:07 21:05 BP 133 / 95; Pulse 133bpm; Resp 21bpm; Pulse Ox 99% FiO2 70% vent; Temp 98.2F; kd3kd3
[2022-03-24] MEDS ORDERED: ENOXAPARIN 80 MG/0.8 ML SQ ONE (22:01)
[2022-03-24] MEDS ORDERED: MIDAZOLAM HCL 2 MG/2 ML INJ ONE (22:10)
[2022-03-25 00:40] LABS: Arterial Blood Carboxyhemoglob 0.6 % (0-1.5); Blood Gas Oxyhemoglobin 93.4 % (94-97)
[2022-03-25 02:57] VITALS: BP 96/76; TEMP 98.9; O2SAT 98
--- NOTE | 2022-03-25 13:45 | EKG ---
Test Date: 2022-03-24 Test Time: 20:42:05 Applique Cutter: DANA MEASUREMENT RESULTS: Intervals: Rate: 125 IN: 120 QRSD: 76 QT: 308 QTc: 444 [place]: P: 70 IN: 120 QRS: 70 T: 34 INTERPRETIVE STATEMENTS: Sinus tachycardia Nonspecific T wave abnormality Abnormal ECG Compared to ECG 10/26/2020 04:02:34 Sinus rhythm no longer present Possible ischemia no longer present T-wave abnormality still present Electronically Signed On 03-25-22 13:44:42 CDT by Nikita Parks
== END 2022-03-25 01:18 | disposition short-term general hospital (02) ==
LOC: ER 19:07 → UNDOADMIN 22:10 → ERHOLD 22:10 → ER 03-25 01:18
PROC: 06HM33Z Insertion of Infusion Device into Right Femoral Vein, Percutaneous Approach (ICD-10-PCS; principal; 2022-03-25)
DX: I22.2 Subsequent non-ST elevation (NSTEMI) myocardial infarction (principal); I21.9 Acute myocardial infarction, unspecified; J69.0 Pneumonitis due to inhalation of food and vomit; J96.00 Acute respiratory failure, unspecified whether with hypoxia or hypercapnia; G40.89 Other seizures; Z98.2 Presence of cerebrospinal fluid drainage device; E78.00 Pure hypercholesterolemia, unspecified; Z20.822 Contact with and (suspected) exposure to COVID-19; Z91.048 Other nonmedicinal substance allergy status
CPT/HCPCS: 93005; 87040 ×2; 85025; 80048; 36415; 80320; 82140; 83735; 82550; 80329 ×2; 85610; 82947; 80076; 80164; 83605 ×2; 80185; 81003; 84484; 84145; 83880; 80307; 87804 ×2; 70450; 72125; 71045; 94002; 82805 ×2; 31500; 51702; 96372; 99291; 99292; 36556; U0003; J2704; J2543; J2250; J1953; J7030 ×2